=== PATIENT | male | born 1950 | race Caucasian/White ===

== ENCOUNTER 2020-01-15 06:22 | Outpatient (REF) | payer BC, SELFPAY ==
[2020-01-15 08:19] LABS: Creatinine Urine 215.75 mg/dL; Microalbum/Creatinine Ratio Ur 3.2 ug/mg cr
[2020-01-15 08:21] LABS: Alanine Aminotransferase 34 U/L (0-40); Albumin Level 4.3 g/dL (3.5-5.0); Alkaline Phosphatase 77 U/L (39-117); Anion Gap 11 (12-20); Aspartate Amino Transferase 24 U/L (5-37); Bilirubin Total 0.2 mg/dL (0.0-1.0); Blood Urea Nitrogen 17 mg/dL (9-16); Calcium 8.8 mg/dL (8.4-10.2); Carbon Dioxide 26 mmol/L (22-29); Chloride 106 mmol/L (96-108); Cholesterol 197 mg/dL; Estimated Glomerular Filt Rate > 60; Glucose Fasting 136 mg/dL (60-99); HDL Cholesterol 46 mg/dL; LDL Cholesterol Calculated 101 mg/dl; Potassium 4.2 mmol/l (3.3-5.1); Sodium 139 mmol/L (135-145); Total Protein 6.9 g/dL (6.5-8.0); Triglycerides 250 mg/dL
== END 2020-01-15 06:23 | disposition home or self-care (01) ==
LOC: HO.LAB 06:22
PROVIDERS: PCP Physician Assistant; Visit Provider Physician Assistant
DX: E11.9 Type 2 diabetes mellitus without complications (principal); I10 Essential (primary) hypertension
CPT/HCPCS: 80053; 80061; 82043

== ENCOUNTER 2020-04-17 06:13 | Outpatient (REF) | payer BC, SELFPAY ==
[2020-04-17 07:46] LABS: Alanine Aminotransferase 39 U/L (0-40); Albumin Level 4.3 g/dL (3.5-5.0); Alkaline Phosphatase 72 U/L (39-117); Anion Gap 13 (12-20); Aspartate Amino Transferase 26 U/L (5-37); Bilirubin Total 0.4 mg/dL (0.0-1.0); Blood Urea Nitrogen 16 mg/dL (9-16); Calcium 8.9 mg/dL (8.4-10.2); Carbon Dioxide 27 mmol/L (22-29); Chloride 105 mmol/L (96-108); Estimated Glomerular Filt Rate > 60; Glucose Fasting 127 mg/dL (60-99); Potassium 4.2 mmol/L (3.3-5.1); Sodium 141 mmol/L (135-145); Total Protein 6.9 g/dL (6.5-8.0)
== END 2020-04-17 06:14 | disposition home or self-care (01) ==
LOC: HO.LAB 06:13
PROVIDERS: Visit Provider Physician Assistant
DX: E11.9 Type 2 diabetes mellitus without complications (principal)
CPT/HCPCS: 36415; 80053

== ENCOUNTER 2020-07-18 06:21 | Outpatient (REF) | payer BC, SELFPAY ==
[2020-07-18 07:11] LABS: Hematocrit 47.3 % (42-52); Hemoglobin 15.6 g/dl (14.0-18.0); Mean Corpuscular Hemoglobin 30.4 pg (27.0-33.0); Mean Corpuscular Volume 92.2 fL (80-98); Mean Platelet Volume 10.3 fL (9.4-12.4); Platelet Count 233 X10*3/uL (160-400); Red Blood Count 5.13 X10*6/uL (4.60-5.80); Red Cell Distribution Width 12.4 % (11.0-16.0); White Blood Count 7.1 X10*3/uL (4.8-10.8)
[2020-07-18 07:46] LABS: Microalbum/Creatinine Ratio Ur 5.4 ug/mg cr
[2020-07-18 07:48] LABS: Alanine Aminotransferase 29 U/L (0-40); Albumin Level 4.3 g/dL (3.5-5.0); Alkaline Phosphatase 70 U/L (39-117); Anion Gap 11 (12-20); Aspartate Amino Transferase 22 U/L (5-37); Bilirubin Total 0.4 mg/dL (0.0-1.0); Blood Urea Nitrogen 13 mg/dL (9-16); Calcium 9.6 mg/dL (8.4-10.2); Carbon Dioxide 31 mmol/L (22-29); Chloride 102 mmol/L (96-108); Cholesterol 204 mg/dL; Estimated Glomerular Filt Rate > 60; Glucose Fasting 140 mg/dL (60-99); HDL Cholesterol 42 mg/dL; LDL Cholesterol Calculated 104 mg/dl; Potassium 4.5 mmol/L (3.3-5.1); Sodium 139 mmol/L (135-145); Triglycerides 291 mg/dL
[2020-07-18 08:07] LABS: Estimated Average Glucose 143 mg/dL; Hemoglobin A1c % 6.6 %
[2020-07-18 08:10] LABS: TSH reflex Free T4 1.06 uIU/mL (0.32-4.0)
== END 2020-07-18 06:22 | disposition home or self-care (01) ==
LOC: HO.LAB 06:21
PROVIDERS: PCP Physician Assistant; Visit Provider Physician Assistant
DX: I10 Essential (primary) hypertension (principal); E11.9 Type 2 diabetes mellitus without complications
CPT/HCPCS: 36415; 80053; 80061; 82043; 83036; 84443; 85027

== ENCOUNTER 2021-01-01 09:05 | Outpatient (REF) | payer MEDICARE, SELFPAY ==
[2021-01-01 10:18] LABS: Alanine Aminotransferase 39 U/L (0-40); Albumin Level 4.2 g/dL (3.5-5.0); Alkaline Phosphatase 65 U/L (39-117); Aspartate Amino Transferase 26 U/L (5-37); Bilirubin Direct 0.2 mg/dL (0.0-0.5); Bilirubin Total 0.5 mg/dL (0.0-1.0); Total Protein 6.7 g/dL (6.5-8.0)
== END 2021-01-01 09:06 | disposition home or self-care (01) ==
LOC: HO.LAB 09:05
PROVIDERS: PCP Physician Assistant; Visit Provider Dermatology
DX: B35.1 Tinea unguium (principal)
CPT/HCPCS: 36415; 80076

== ENCOUNTER 2021-01-17 09:19 | Outpatient (REF) | payer MEDICARE, SELFPAY ==
[2021-01-17 10:15] LABS: Hematocrit 45.1 % (42.0-52.0); Hemoglobin 15.1 g/dl (14.0-18.0); Mean Corpuscular HGB Conc 33.5 g/dl (31.0-36.0); Mean Corpuscular Hemoglobin 30.4 pg (27.0-33.0); Mean Corpuscular Volume 90.7 fL (80.0-98.0); Mean Platelet Volume 10.7 fL (9.4-12.4); Platelet Count 205 X10*3/uL (160-400); Red Blood Count 4.97 X10*6/uL (4.60-5.80); Red Cell Distribution Width 12.5 % (11.0-16.0); White Blood Count 7.2 X10*3/uL (4.8-10.8)
[2021-01-17 10:25] LABS: Estimated Average Glucose 157 mg/dL; Hemoglobin A1c % 7.1 %
[2021-01-17 10:37] LABS: Alanine Aminotransferase 40 U/L (0-40); Albumin Level 4.2 g/dL (3.5-5.0); Alkaline Phosphatase 69 U/L (39-117); Anion Gap 11 (12-20); Aspartate Amino Transferase 24 U/L (5-37); Bilirubin Total 0.4 mg/dL (0.0-1.0); Blood Urea Nitrogen 11 mg/dL (9-16); Calcium 9.1 mg/dL (8.4-10.2); Carbon Dioxide 28 mmol/L (22-29); Chloride 105 mmol/L (96-108); Cholesterol 221 mg/dL; Estimated Glomerular Filt Rate > 60; Glucose Fasting 148 mg/dL (60-99); HDL Cholesterol 43 mg/dL; LDL Cholesterol Calculated 117 mg/dl; Sodium 140 mmol/L (135-145); Total Protein 6.9 g/dL (6.5-8.0); Triglycerides 309 mg/dL
== END 2021-01-17 09:20 | disposition home or self-care (01) ==
LOC: HO.LAB 09:19
PROVIDERS: PCP Physician Assistant; Visit Provider Physician Assistant
DX: I10 Essential (primary) hypertension (principal); E11.9 Type 2 diabetes mellitus without complications
CPT/HCPCS: 36415; 80053; 80061; 83036; 85027

== ENCOUNTER 2021-07-21 07:52 | Outpatient (REF) | payer MEDICARE, SELFPAY ==
[2021-07-21 08:43] LABS: Hematocrit 43.9 % (42.0-52.0); Hemoglobin 14.6 g/dl (14.0-18.0); Mean Corpuscular HGB Conc 33.3 g/dl (31.0-36.0); Mean Corpuscular Hemoglobin 30.1 pg (27.0-33.0); Mean Corpuscular Volume 90.5 fL (80.0-98.0); Mean Platelet Volume 10.4 fL (9.4-12.4); Platelet Count 195 X10*3/uL (160-400); Red Blood Count 4.85 X10*6/uL (4.60-5.80); Red Cell Distribution Width 12.2 % (11.0-16.0); White Blood Count 7.3 X10*3/uL (4.8-10.8)
[2021-07-21 09:07] LABS: Alanine Aminotransferase 45 U/L (0-40); Albumin Level 4.3 g/dL (3.5-5.0); Alkaline Phosphatase 66 U/L (39-117); Anion Gap 12 (12-20); Aspartate Amino Transferase 28 U/L (5-37); Bilirubin Total 0.5 mg/dL (0.0-1.0); Blood Urea Nitrogen 17 mg/dL (9-16); Calcium 9.7 mg/dL (8.4-10.2); Carbon Dioxide 27 mmol/L (22-29); Chloride 106 mmol/L (96-108); Cholesterol 218 mg/dL; Estimated Glomerular Filt Rate > 60; Glucose Fasting 160 mg/dL (60-99); HDL Cholesterol 43 mg/dL; LDL Cholesterol Calculated 113 mg/dl; Potassium 4.6 mmol/L (3.3-5.1); Sodium 140 mmol/L (135-145); Total Protein 6.9 g/dL (6.5-8.0); Triglycerides 310 mg/dL
[2021-07-21 09:40] LABS: Creatinine Urine 218.99 mg/dL; Microalbum/Creatinine Ratio Ur 4.5 ug/mg cr
== END 2021-07-21 07:53 | disposition home or self-care (01) ==
LOC: HO.LAB 07:52
PROVIDERS: PCP Physician Assistant; Visit Provider Physician Assistant
DX: I10 Essential (primary) hypertension (principal); E78.9 Disorder of lipoprotein metabolism, unspecified
CPT/HCPCS: 36415; 80053; 80061; 82043; 85027

== ENCOUNTER 2022-07-28 14:30 | Outpatient (REF) | payer MEDICARE, SELFPAY ==
--- NOTE | ~2022-07-28 | XR_ITS ---
EXAMINATION: XR LUMBOSACRAL SPINE CLINICAL INFORMATION: Anesthesia of skin COMPARISON: None available. TECHNIQUE: Three views of the lumbosacral spine. FINDINGS: No fracture or dislocation. Curvature of the lower lumbar spine to the left. Bone alignment is otherwise normal. Multilevel degenerative disc disease, spondylosis and facet arthritis at all levels. Mild atherosclerotic disease. 1 cm right upper quadrant calcification, uncertain etiology. This could represent a right renal stone. XR/XR lumbar spine 2-3V IMPRESSION: Scoliosis and multilevel degenerative changes. 1 cm right upper quadrant calcification, uncertain etiology
== END 2022-07-28 14:31 | disposition home or self-care (01) ==
LOC: HO.XRAY 14:30
PROVIDERS: PCP Physician Assistant; Visit Provider Physician Assistant
DX: R20.0 Anesthesia of skin (principal)
CPT/HCPCS: 72100

== ENCOUNTER 2022-07-29 09:01 | Outpatient (REF) | payer MEDICARE, SELFPAY ==
[2022-07-29 09:47] LABS: Hematocrit 39.2 % (42.0-52.0); Mean Corpuscular HGB Conc 33.2 g/dl (31.0-36.0); Mean Corpuscular Hemoglobin 30.4 pg (27.0-33.0); Mean Corpuscular Volume 91.6 fL (80.0-98.0); Mean Platelet Volume 10.4 fL (9.4-12.4); Platelet Count 241 X10*3/uL (160-400); Red Blood Count 4.28 X10*6/uL (4.60-5.80); Red Cell Distribution Width 12.4 % (11.0-16.0); White Blood Count 7.3 X10*3/uL (4.8-10.8)
[2022-07-29 10:24] LABS: Alanine Aminotransferase 30 U/L (0-40); Alkaline Phosphatase 77 U/L (39-117); Anion Gap 14 (12-20); Aspartate Amino Transferase 22 U/L (5-37); Bilirubin Total 0.4 mg/dL (0.0-1.0); Blood Urea Nitrogen 19 mg/dL (9-16); Calcium 9.5 mg/dL (8.4-10.2); Carbon Dioxide 28 mmol/L (22-29); Chloride 103 mmol/L (96-108); Cholesterol 206 mg/dL; Estimated Glomerular Filt Rate > 60; Glucose Fasting 268 mg/dL (60-99); HDL Cholesterol 43 mg/dL; LDL Cholesterol Calculated 110 mg/dl; Potassium 4.9 mmol/L (3.3-5.1); Sodium 140 mmol/L (135-145); Total Protein 6.8 g/dL (6.5-8.0); Triglycerides 267 mg/dL
[2022-07-29 11:40] LABS: Microalbum/Creatinine Ratio Ur 4.5 ug/mg cr
== END 2022-07-29 09:02 | disposition home or self-care (01) ==
LOC: HO.LAB 09:01
PROVIDERS: PCP Physician Assistant; Visit Provider Physician Assistant
DX: I10 Essential (primary) hypertension (principal); E11.9 Type 2 diabetes mellitus without complications; Z78.9 Other specified health status
CPT/HCPCS: 36415; 80053; 80061; 82043; 85027; 86787

== ENCOUNTER 2022-08-26 11:19 | Outpatient (REF) | payer MEDICARE, SELFPAY ==
--- NOTE | ~2022-08-26 | US_ITS ---
EXAMINATION: US RETROPERITONEAL LIMITED (RENAL ONLY) CLINICAL INFORMATION: Right upper quadrant calculus on lumbar spine x-ray of 07/28/2022 COMPARISON: X-ray lumbosacral spine 07/28/2022. TECHNIQUE: Real-time imaging of the kidneys. FINDINGS: RIGHT KIDNEY: 13.0 x 6.4 x 7.5 cm (SAG x AP x TRV). The kidney is normal in size, contour, and echogenicity. Renal cortical thickness is normal. No calculi or focal parenchymal lesions. No hydronephrosis. LEFT KIDNEY: 12.9 x 6.7 x 5.7 cm (SAG x AP x TRV). The kidney is normal in size, contour, and echogenicity. Renal cortical thickness is normal. No calculi or focal parenchymal lesions. No hydronephrosis. US/US renal BI IMPRESSION: No renal calculi or obstructive uropathy. The calcification visualized on recent lumbar x-ray may reflect a gallstone.
== END 2022-08-26 11:20 | disposition home or self-care (01) ==
LOC: HO.HMGCX 11:19
PROVIDERS: PCP Physician Assistant; Visit Provider Physician Assistant
DX: N20.0 Calculus of kidney (principal)
CPT/HCPCS: 76775

== ENCOUNTER 2022-10-26 07:55 | Outpatient (REF) | payer MEDICARE, SELFPAY ==
[2022-10-26 08:19] LABS: Estimated Average Glucose 157 mg/dL; Hemoglobin A1c % 7.1 %
[2022-10-26 08:48] LABS: Alanine Aminotransferase 29 U/L (0-40); Albumin Level 4.2 g/dL (3.5-5.0); Alkaline Phosphatase 61 U/L (39-117); Anion Gap 11 (12-20); Aspartate Amino Transferase 22 U/L (5-37); Bilirubin Total 0.4 mg/dL (0.0-1.0); Blood Urea Nitrogen 22 mg/dL (9-16); Calcium 9.7 mg/dL (8.4-10.2); Carbon Dioxide 26 mmol/L (22-29); Chloride 108 mmol/L (96-108); Cholesterol 191 mg/dL; Estimated Glomerular Filt Rate 56; Glucose Fasting 150 mg/dL (60-99); HDL Cholesterol 47 mg/dL; LDL Cholesterol Calculated 109 mg/dl; Sodium 141 mmol/L (135-145); Total Protein 7.2 g/dL (6.5-8.0); Triglycerides 177 mg/dL
== END 2022-10-26 07:56 | disposition home or self-care (01) ==
LOC: HO.LAB 07:55
PROVIDERS: PCP Physician Assistant; Visit Provider Physician Assistant
DX: E78.9 Disorder of lipoprotein metabolism, unspecified (principal); E11.9 Type 2 diabetes mellitus without complications; I10 Essential (primary) hypertension
CPT/HCPCS: 36415; 80053; 80061; 83036

== ENCOUNTER 2022-10-27 11:21 | Outpatient (AMB) | payer MEDICARE, SELFPAY ==
--- NOTE | 2022-10-27 11:33 | MHC.PC.OV ---
Vital Signs 10/27/22 11:36 Height 5 ft 10 in Weight 251 lb 2 oz BMI 36.0 BP 146/78 H Blood Pressure Location Lt brachial Position Sitting Pulse 65 Pulse Source Pulse Oximeter Pulse Oximetry (%) 97 Oxygen Delivery Method Room Air Intake Visit Reasons: f/u DMII Intake Note: Patient is here to follow up on DMII and HTN. Laundromat Manager Required: No Accompanied by: Self / Same As Patient Allergies metformin Adverse Reaction (Mild, Verified 10/27/22 11:47) Diarrhea Medication List - Last Reconciled 10/27/22 by Bobo Cruz PA-C betamethasone dipropionate 0.05% appl topical blood sugar diagnostic (FreeStyle Lite Strips) As directed blood-glucose meter (FreeStyle Lite Meter kit) As directed wrlnootqvw-lwkeepcivvdhf-zrro 50-325-40 mg 1 cap PO Q8H PRN glipizide ER 5 mg PO DAILY 90 days hydrocortisone 2.5% 1 appl topical BID PRN ketoconazole 2% appl topical BID lancets (FreeStyle Lancets) As directed lisinopril 30 mg PO DAILY 90 days miscellaneous medical supply 1 ea miscellaneous .nightly pioglitazone (Actos) 30 mg PO DAILY 90 days Tobacco use date assessed: 07/28/22 Fall risk assessment: No Falls in past year Last assessed Fall Risk: 10/27/22 Dental Screening Dental Screen Date: 10/27/22 Did you have a dental visit in the last 12 months?: Yes Did you have a dental problem in the last 6 months where you did not have access to dental care?: No Was dental information given to patient?: Patient has dentist HPI f/u DMII HPI Details Eda is a 72-year-old male here today for follow-up visit l. ? Pmhx significant for Prostate cancer, DMII, HTN. Concern--> ? ... ? History of prostate cancer: Underwent a prostectomy and has made a full recovery . Has followup with Urology. PSA has been undetectable. ? .. ? ? JV:? Has received his new CPAP machine and has been complying with this use nightly with good effect. .. Obesity:? Weight has been stable since last office visit. He reports he has been doing more yard work as his activity. ? .. ? DMII:? Most recent A1c much improved at 7.1 from 10.1..?.? He continues on 30 mg of Actos, was unable to tolerate metformin. He does report having a lot more soda as of late. Continues on glipizide 5 mg as well. .. Hyperlipidemia: Most recent fasting lipid panel showing much improved total cholesterol .. Hypertension:? Blood pressure today in office slightly elevated. Home blood pressure logs showing systolic numbers 120s to 150s. He would like to continue on lisinopril 30 mg for now. Will consider increasing to 40 mg for better blood pressure control. Otherwise will continue working lifestyle modifications on reducing his weight and salt in his diet..? Patient denies any headaches, chest discomfort, shortness of breath. Unfortunately had experienced dizziness and presyncopal episodes with the us of hydrochlorothiazide. COUNT INCLUDES THE [facility] Medical History (Updated 10/27/22 @ 12:11 by Bobo Cruz PA-C) Migraines Surgical History H/O prostate biopsy History of prostatectomy Family History Father Colon cancer Mother Stroke Social History Housing: House Alcohol intake: former Year quit: 2019 Patient Tobacco Use Status: Former Tobacco user (22 years ago) Quit Date: quit 22 years ago e-Cigarette/Vaping Use: Never Used Substance Use Type: Marijuana service: No Current occupational status: retired Cognitive needs: No Hearing needs: No Vision needs: Yes Questionnaire Thrive Questionnaire Date Thrive assessed: 07/28/22 KRISH-7 AMB Questionnaire KRISH-7 Date KRISH - 7 assessed: 07/28/22 Source: Developed by Drs. Dusty Ansari, Mirella Meier, Vinay Soto and colleagues, with an educational ron from [employer]. Review of Systems Const Denies headache(s) Eyes Denies loss of vision ENT Denies vertigo, Denies dizziness, Denies headache(s) and Denies sore throat Card Denies chest pain, Denies leg edema and Denies lightheadedness Resp Denies cough, Denies hemoptysis and Denies wheezing GI Denies abdominal pain, Denies melena, Denies constipation, Denies diarrhea and Denies vomiting Denies dysuria, Denies urinary frequency and Denies urinary urgency Musc Denies arthralgias, Denies joint swelling, Denies numbness and Denies tingling Neuro Denies Abnormal speech present, Denies behavioral changes, Denies vertigo, Denies dizziness, Denies headache(s), Denies loss of vision, Denies memory loss, Denies numbness and Denies tingling Psych Denies anxiety, Denies behavioral changes, Denies depression, Denies memory loss and Denies panic attacks Surinder/Lymph Denies easy bleeding and Denies easy bruising Aller/Immun Denies wheezing Physical exam (Primary Care) Vital Signs: Last Vital Signs Pulse 65 10/27/22 11:36 BP 146/78 H 10/27/22 11:36 Pulse Ox 97 10/27/22 11:36 Oxygen Delivery Method Room Air 10/27/22 11:36 BMI result Body Mass Index 36.0 BMI Assessment/Plan discussion: High Tobacco/Smoking Status: Tobacco use Status Tobacco use date assessed 07/28/22 10/27/22 11:33 Patient Tobacco Use Status Former Tobacco user (10/27/22 11:33 years ago) e-Cigarette/Vaping Use Never Used 10/27/22 11:33 Thrive Assessment: Date of Thrive Assessment Date Thrive assessed 07/28/22 10/27/22 11:33 Const Other: Obese General: healthy appearing, no acute distress, alert and awake Nutritional Appearance: well nourished Orientation/consciousness: oriented to person, oriented to place and oriented to time HENMT Ears: TM's normal bilaterally General nose exam: Normal nasal mucous membranes and turbinates present Eyes Conjunctivae: conjunctivae normal Sclerae: sclerae normal Pupils: Equal, round and reactive pupils present Neck Neck: Yes no lymphadenopathy and Yes no JVD Thyroid: Thyroid normal Carotids: no bruits Resp Effort & Inspection: normal respiratory effort and not tachypneic Auscultation: no crackles, no rales, no rhonchi and no wheezes Cardio Rate: regular rate Rhythm: regular rhythm Heart sounds: no murmurs and normal S1 and S2 GI Palpation (GI): Soft to palpation, nontender, no hepatomegaly and no splenomegaly Auscultation: normal bowel sounds Skin General skin exam: no rashes or lesions noted and dry skin Neuro General: oriented to person, oriented to place and oriented to time Cranial nerves: Yes Equal, round and reactive pupils present Speech: No Abnormal speech present Gait exam (Neuro): Normal gait present Motor exam (neuro): no tremor noted Extrem Right upper extremity: full ROM Left upper extremity: full ROM Right lower extremity: full ROM; no edema Left lower extremity: full ROM; no edema Psych Mental Status: mental status grossly normal Speech and movement: Normal speech and movement present Affect: normal affect Attitude: cooperative Thought process: Normal thought process present Assessment and Plan Assessment & Plan (1) HTN (hypertension): Code(s): I10 - Essential (primary) hypertension Qualifiers: Hypertension type: essential hypertension Qualified Code(s): I10 - Essential (primary) hypertension Plan: Patient's blood pressure slightly elevated today in office. He continues on lisinopril 30 mg like to continue this dose at this time. Has tried hydrochlorothiazide though felt dizzy and had breaks syncopal episode. He will continue working on lifestyle modifications to reduce his weight. Advised again to reduce salt in his diet. Goal blood pressures is to be more consistently below 140/90 (2) DMII (diabetes mellitus, type 2): Code(s): E11.9 - Type 2 diabetes mellitus without complications Qualifiers: Diabetes mellitus complication status: without complication Diabetes mellitus intermediate insulin use: without intermediate use Qualified Code(s): E11.9 - Type 2 diabetes mellitus without complications Plan: Patient's type 2 diabetes much improved since last visit. Continues on Actos and glipizide. Will continue working on lifestyle modifications and following a diabetic diet. Goal A1c is to be below 7.0. (3) Borderline high cholesterol: Code(s): E78.9 - Disorder of lipoprotein metabolism, unspecified Plan: Patient has borderline high cholesterol has improved since last lab draw. LDL slightly above 100 and will continue working on lifestyle modifications to reduce his cholesterol. (4) Lumbar radiculopathy: Code(s): M54.16 - Radiculopathy, lumbar region Plan: Patient reports he has been having worsening lower back pain and thigh numbness and tingling. Has had x-ray of his lower lumbar spine the did show scoliosis and arthritis. Will try to order MRI as patient's symptoms are consistent with nerve entrapment. Advised on physical therapy and patient is somewhat willing to do so. (5) JV (obstructive sleep apnea): Code(s): G47.33 - Obstructive sleep apnea (adult) (pediatric) Plan: Patient continues on nightly use of CPAP machine . (6) Obese: Code(s): E66.9 - Obesity, unspecified Qualifiers: Obesity type: due to excess calories Obesity classification: adult class 1 (BMI 30 - 34.9) Serious obesity comorbidity presence: with serious comorbidity Body mass index: BMI 34.0-34.9 Qualified Code(s): E66.09 - Other obesity due to excess calories; Z68.34 - Body mass index [BMI] 34.0-34.9, adult Plan: Patient interested in starting medication to help lose weight. Will try 3 mg rybelsus. He will continue lifestyle modifications being more physically active and adapting to better eating habits to reduce his weight as well. Orders: Orders Comprehensive [place]. Panel Fast Today E11.9 - Type 2 diabetes mellitus without complications Lipid Panel Today E78.9 - Disorder of lipoprotein metabolism, unspecified MR lumbar spine wo con Today M54.16 - Radiculopathy, lumbar region Medications: New semaglutide 3 mg PO DAILY 30 days 30 tabs 0RF E11.9 - Type 2 diabetes mellitus without complications, E66.09 - Other obesity due to excess calories, E66.9 - Obesity, unspecified, Z68.34 - Body mass index [BMI] 34.0-34.9, adult Coding Level of Care Code Est Pt Level 4 (17272) Diagnoses HTN (hypertension) I10 Hypertension type: essential hypertension DMII (diabetes mellitus, type 2) E11.9 Diabetes mellitus complication status: without complication Diabetes mellitus terminal gauger insulin use: without terminal gauger use Borderline high cholesterol E78.9 Lumbar radiculopathy M54.16 JV (obstructive sleep apnea) G47.33 Obese E66.09; Z68.34 Obesity type: due to excess calories Obesity classification: adult class 1 (BMI 30 - 34.9) Serious obesity comorbidity presence: with serious comorbidity Body mass index: BMI 34.0-34.9
[2022-10-27 11:36] VITALS: BP 146/78; PULSE 65; O2SAT 97; BMI 36.0
== END 2022-10-27 12:36 | disposition home or self-care (01) ==
PROVIDERS: PCP Physician Assistant; Visit Provider Physician Assistant
DX: I10 Essential (primary) hypertension (principal); E11.9 Type 2 diabetes mellitus without complications; E66.09 Other obesity due to excess calories; Z68.34 Body mass index [BMI] 34.0-34.9, adult; E78.9 Disorder of lipoprotein metabolism, unspecified; M54.16 Radiculopathy, lumbar region; G47.33 Obstructive sleep apnea (adult) (pediatric)
CPT/HCPCS: 99214

== ENCOUNTER 2022-12-11 10:24 | Outpatient (REF) | payer MEDICARE, SELFPAY | END 2022-12-11 10:25 | disposition home or self-care (01) | LOC: HO.MRI 10:24 | PROVIDERS: PCP Physician Assistant; Visit Provider Physician Assistant | DX: Z13.89 Encounter for screening for other disorder (principal) ==

== ENCOUNTER 2023-01-26 08:05 | Outpatient (REF) | payer MEDICARE, SELFPAY ==
[2023-01-26 09:14] LABS: Alanine Aminotransferase 23 U/L (0-40); Albumin Level 4.3 g/dL (3.5-5.0); Alkaline Phosphatase 72 U/L (39-117); Anion Gap 11 (12-20); Aspartate Amino Transferase 21 U/L (5-37); Bilirubin Total 0.5 mg/dL (0.0-1.0); Blood Urea Nitrogen 17 mg/dL (9-16); Calcium 10.1 mg/dL (8.4-10.2); Carbon Dioxide 28 mmol/L (22-29); Chloride 105 mmol/L (96-108); Cholesterol 217 mg/dL (<200); Estimated Glomerular Filt Rate > 60; Glucose Fasting 178 mg/dL (60-99); HDL Cholesterol 47 mg/dL (>40); LDL Cholesterol Calculated 121 mg/dL (<100); Potassium 4.3 mmol/L (3.3-5.1); Sodium 140 mmol/L (135-145); Total Protein 7.7 g/dL (6.5-8.0); Triglycerides 245 mg/dL (<150)
== END 2023-01-26 08:06 | disposition home or self-care (01) ==
LOC: HO.LAB 08:05
PROVIDERS: PCP Physician Assistant; Visit Provider Physician Assistant
DX: E11.9 Type 2 diabetes mellitus without complications (principal); E78.9 Disorder of lipoprotein metabolism, unspecified
CPT/HCPCS: 36415; 80053; 80061

== ENCOUNTER 2023-02-03 10:48 | Outpatient (AMB) | payer MEDICARE, SELFPAY ==
[2023-02-03 10:54] VITALS: BP 148/68; PULSE 82; O2SAT 95; BMI 36.4
--- NOTE | 2023-02-03 10:54 | MHC.PC.OV ---
Vital Signs 02/03/23 10:54 02/03/23 11:30 Height 5 ft 10 in Weight 253 lb 6 oz BMI 36.4 BP 148/68 H 140/70 H Blood Pressure Location Lt brachial Position Sitting Pulse 82 Pulse Source Pulse Oximeter Pulse Oximetry (%) 95 Oxygen Delivery Method Room Air Intake Visit Reasons: f/u DMII/ HTN It Program Engagement Director Required: No Accompanied by: Self / Same As Patient Allergies metformin Adverse Reaction (Mild, Verified 02/03/23 11:09) Diarrhea Medication List - Last Reconciled 02/03/23 by Bobo Cruz PA-C betamethasone dipropionate 0.05% appl topical blood sugar diagnostic (FreeStyle Lite Strips) As directed blood-glucose meter (FreeStyle Lite Meter kit) As directed prkvyceqli-wigswostrwoln-ynbw 50-325-40 mg 1 cap PO Q8H PRN glipizide ER 5 mg PO DAILY 90 days hydrocortisone 2.5% 1 appl topical BID PRN ketoconazole 2% appl topical BID lancets (FreeStyle Lancets) As directed lisinopril 40 mg PO DAILY miscellaneous medical supply 1 ea miscellaneous .nightly pioglitazone (Actos) 30 mg PO DAILY 90 days semaglutide 3 mg PO DAILY 30 days Tobacco use date assessed: 07/28/22 Fall risk assessment: 1 Fall in past year Last assessed Fall Risk: 02/03/23 Dental Screening Dental Screen Date: 02/03/23 Did you have a dental visit in the last 12 months?: Yes Did you have a dental problem in the last 6 months where you did not have access to dental care?: No Was dental information given to patient?: Patient has dentist HPI f/u DMII/ HTN HPI Details Eda is a 72-year-old male here today for follow-up visit . ? Pmhx significant for Prostate cancer, DMII, HTN. Lumbar disc disease: Has bilateral thigh numbness and tingling. Does report being somewhat off balance. Recent MRI lumbar spine showing moderate disc disease. Offered physical therapy though he declines at this time. He is interested in seeing neurosurgeon about his possible surgical fix. ? ... ? History of prostate cancer: Underwent a prostectomy and has made a full recovery . Has followup with Urology. PSA has been undetectable. ? .. ? ? JV:? Has received his new CPAP machine and has been complying with this use nightly with good effect. .. Obesity: He does understand his BMI is over 30.? Weight has been stable since last office visit. He reports he has been doing more yard work as his activity. ? .. ? DMII:? Most recent A1c at 7.7. He continues on 30 mg of Actos, was unable to tolerate metformin. We have tried to prescribe Ozempic though much too expensive for patient. He is trying to be more compliant with a diabetic diet.. Continues on glipizide 5 mg as well. .. Hyperlipidemia: Most recent fasting lipid panel showing improved total cholesterol though still borderline. LDL above 100. He is now willing to start statin therapy with goal LDL to be below 100 .. Hypertension:? Blood pressure today in office slightly elevated. We have increased his lisinopril to 40 mg. He was not able to tolerate hydrochlorothiazide due to dizziness. He reports that home blood pressures are 120 systolic. REPLACED BY [facility] Medical History Migraines Surgical History H/O prostate biopsy History of prostatectomy Family History Father Colon cancer Mother Stroke Social History Housing: House Alcohol intake: former Year quit: 2019 Patient Tobacco Use Status: Former Tobacco user (22 years ago) Quit Date: quit 22 years ago e-Cigarette/Vaping Use: Never Used Substance Use Type: Marijuana service: No Current occupational status: retired Cognitive needs: No Hearing needs: No Vision needs: Yes Questionnaire Thrive Questionnaire Date Thrive assessed: 07/28/22 KRISH-7 AMB Questionnaire KRISH-7 Date KRISH - 7 assessed: 07/28/22 Source: Developed by Drs. Dusty Ansari, Mirella Meier, Vinay Soto and colleagues, with an educational ron from [employer]. Review of Systems Const Denies headache(s) Eyes Denies loss of vision ENT Denies vertigo, Denies dizziness, Denies headache(s) and Denies sore throat Card Denies chest pain, Denies leg edema and Denies lightheadedness Resp Denies cough, Denies hemoptysis and Denies wheezing GI Denies abdominal pain, Denies melena, Denies constipation, Denies diarrhea and Denies vomiting Denies dysuria, Denies urinary frequency and Denies urinary urgency Musc Denies arthralgias, Denies joint swelling, Denies numbness and Denies tingling Neuro Denies Abnormal speech present, Denies behavioral changes, Denies vertigo, Denies dizziness, Denies headache(s), Denies loss of vision, Denies memory loss, Denies numbness and Denies tingling Psych Denies anxiety, Denies behavioral changes, Denies depression, Denies memory loss and Denies panic attacks Surinder/Lymph Denies easy bleeding and Denies easy bruising Aller/Immun Denies wheezing Physical exam (Primary Care) Vital Signs: Last Vital Signs Pulse 82 02/03/23 10:54 BP 140/70 H 02/03/23 11:30 Pulse Ox 95 02/03/23 10:54 Oxygen Delivery Method Room Air 02/03/23 10:54 BMI result Body Mass Index 36.4 BMI Assessment/Plan discussion: High Tobacco/Smoking Status: Tobacco use Status Tobacco use date assessed 07/28/22 02/03/23 11:00 Patient Tobacco Use Status Former Tobacco user (22 02/03/23 11:00 years ago) e-Cigarette/Vaping Use Never Used 02/03/23 11:00 Thrive Assessment: Date of Thrive Assessment Date Thrive assessed 07/28/22 02/03/23 11:00 Const Other: OBESE General: no acute distress, alert and awake Nutritional Appearance: well nourished Orientation/consciousness: oriented to person, oriented to place and oriented to time HENMT Ears: TM's normal bilaterally General nose exam: Normal nasal mucous membranes and turbinates present Eyes Conjunctivae: conjunctivae normal Sclerae: sclerae normal Pupils: Equal, round and reactive pupils present Neck Neck: Yes no lymphadenopathy and Yes no JVD Thyroid: Thyroid normal Carotids: no bruits Resp Effort & Inspection: normal respiratory effort and not tachypneic Auscultation: no crackles, no rales, no rhonchi and no wheezes Cardio Rate: regular rate Rhythm: regular rhythm Heart sounds: no murmurs and normal S1 and S2 GI Palpation (GI): Soft to palpation, nontender, no hepatomegaly and no splenomegaly Auscultation: normal bowel sounds Skin General skin exam: no rashes or lesions noted and dry skin Neuro General: oriented to person, oriented to place and oriented to time Cranial nerves: Yes Equal, round and reactive pupils present Speech: No Abnormal speech present Gait exam (Neuro): Normal gait present Motor exam (neuro): no tremor noted Extrem Right upper extremity: full ROM Left upper extremity: full ROM Right lower extremity: full ROM; no edema Left lower extremity: full ROM; no edema Psych Mental Status: mental status grossly normal Speech and movement: Normal speech and movement present Affect: normal affect Attitude: cooperative Thought process: Normal thought process present Results AMB Hemoglobin A1c AMB Hemoglobin A1c 7.7 % Last Edit by MARIAA Gallagher on 02/03/23 11:07 Results Reviewed Results Reviewed: Laboratory Last Values Hgb A1c (Clinic) 7.7 % (4.0-6.0) H 02/03/23 10:51 Assessment and Plan Assessment & Plan (1) HTN (hypertension): Code(s): I10 - Essential (primary) hypertension Qualifiers: Hypertension type: essential hypertension Qualified Code(s): I10 - Essential (primary) hypertension Plan: Patient's blood pressure slightly elevated today in office. We have increased his lisinopril to 40 mg. He reports that home blood pressures are 120 systolic. Has tried hydrochlorothiazide though felt dizzy and had breaks syncopal episode. He will continue working on lifestyle modifications to reduce his weight. Advised again to reduce salt in his diet. Goal blood pressures is to be more consistently below 140/90 (2) DMII (diabetes mellitus, type 2): Code(s): E11.9 - Type 2 diabetes mellitus without complications Qualifiers: Diabetes mellitus complication status: without complication Diabetes mellitus psychiatry physician insulin use: without chcf use Qualified Code(s): E11.9 - Type 2 diabetes mellitus without complications Plan: Patient's type 2 diabetes suboptimally controlled with today's A1c is 7.7. Continues on Actos and glipizide. We have tried to prescribe Ozempic though was much too expensive for patient. Will extensively work on diabetic diet and trying to be more physically active. Goal A1c to be below 7.0 (3) Borderline high cholesterol: Code(s): E78.9 - Disorder of lipoprotein metabolism, unspecified Plan: Patient's LDL above goal. Will start statin therapy. Goal LDL to be below 100 (4) Lumbar radiculopathy: Code(s): M54.16 - Radiculopathy, lumbar region Plan: Patient reports he has been having worsening lower back pain and thigh numbness and tingling. MRI of lumbar spine showing multilevel lumbar disc herniations. He is not interested in physical therapy though his knee to speak with surgeon to about possible surgical fix. (5) JV (obstructive sleep apnea): Code(s): G47.33 - Obstructive sleep apnea (adult) (pediatric) Plan: Patient continues on nightly use of CPAP machine . (6) Obese: Code(s): E66.9 - Obesity, unspecified Qualifiers: Body mass index: BMI 34.0-34.9 Obesity classification: adult class 1 (BMI 30 - 34.9) Obesity type: due to excess calories Serious obesity comorbidity presence: with serious comorbidity Qualified Code(s): E66.09 - Other obesity due to excess calories; Z68.34 - Body mass index [BMI] 34.0-34.9, adult Plan: He will continue lifestyle modifications being more physically active and adapting to better eating habits to reduce his weight as well. Orders: Orders AMB Hemoglobin A1c Today E11.9 - Type 2 diabetes mellitus without complications Comprehensive [place]. Panel Fast Today I10 - Essential (primary) hypertension Hemoglobin A1c Today E11.9 - Type 2 diabetes mellitus without complications Lipid Panel Today E78.9 - Disorder of lipoprotein metabolism, unspecified Microalbumin, Random (w Creat) Today I10 - Essential (primary) hypertension Complete Blood Count no Diff Today E11.9 - Type 2 diabetes mellitus without complications Referrals Neurosurgery Referral M54.16 - Radiculopathy, lumbar region Medications: New atorvastatin 10 mg PO DAILY 90 days 90 tabs 1RF E78.9 - Disorder of lipoprotein metabolism, unspecified atorvastatin 10 mg PO DAILY 90 days 90 tabs 1RF E78.9 - Disorder of lipoprotein metabolism, unspecified Discontinued semaglutide Discontinued Reason: Doctor's Order 3 mg PO DAILY 30 days 30 tabs 0RF E11.9 - Type 2 diabetes mellitus without complications, E66.09 - Other obesity due to excess calories, E66.9 - Obesity, unspecified, Z68.34 - Body mass index [BMI] 34.0-34.9, adult Coding Level of Care Code Est Pt Level 4 (32583) Diagnoses Essential hypertension I10 Hypertension type: essential hypertension Type 2 diabetes mellitus without complication, without long-term current use of insulin E11.9 Diabetes mellitus complication status: without complication Diabetes mellitus psychiatry physician insulin use: without psychiatry physician use Borderline high cholesterol E78.9 Lumbar radiculopathy M54.16 JV (obstructive sleep apnea) G47.33 Class 1 obesity due to excess calories with serious comorbidity and body mass index (BMI) of 34.0 to 34.9 in adult E66.09; Z68.34 Body mass index: BMI 34.0-34.9 Obesity classification: adult class 1 (BMI 30 - 34.9) Obesity type: due to excess calories Serious obesity comorbidity presence: with serious comorbidity
[2023-02-03 11:30] VITALS: BP 140/70
== END 2023-02-03 11:46 | disposition home or self-care (01) ==
PROVIDERS: PCP Physician Assistant; Visit Provider Physician Assistant
DX: I10 Essential (primary) hypertension (principal); E11.9 Type 2 diabetes mellitus without complications; E78.9 Disorder of lipoprotein metabolism, unspecified; M54.16 Radiculopathy, lumbar region; G47.33 Obstructive sleep apnea (adult) (pediatric); E66.09 Other obesity due to excess calories; Z68.34 Body mass index [BMI] 34.0-34.9, adult
CPT/HCPCS: 83036; 99214

== ENCOUNTER 2023-03-11 12:50 | Outpatient (AMB) | payer MEDICARE, SELFPAY ==
--- NOTE | 2023-03-11 13:03 | HO.SPINEOV ---
Intake Intake Visit Reasons: low back pain Intake Note: Mr. Faulkner is here today c/o low back pain. MRI done @ [place]. Gem Cutter Required: No Allergies metformin Adverse Reaction (Mild, Verified 02/03/23 11:09) Diarrhea Assessment & Plan Assessment & Plan (1) Thigh numbness: Code(s): R20.0 - Anesthesia of skin Plan Dear Bobo, Thank you for referring Mr Faulkner to our office today. This is a 72-year-old diabetic gentleman who has had I year more of progressive numbness in the front of his thighs when he is walking. It goes away when he sits down. It is an uncomfortable situation but it is not painful or cramping. It generally starts in the later part of the morning into the afternoon and when he starts to get out of the house and move around he can walk for about 5-10 minutes before he has to sit down. He does have a component of back pain but it is really not all that bothersome and nothing that would have brought him to the office today. Out of the persistence of the numbness and it is starting to interfere with his walking he had it worked up and an MRI showed some mild degenerative changes. He came here today as referral for evaluation of the numbness of the thighs. He denies any numbness of the upper extremities or his chest. No problem with urination. PMH: History of prostate cancer with total prostatectomy, hypertension, type 2 diabetes. His last A1c was 7.7. Borderline high cholesterol Social hx: He does not smoke tobacco or use alcohol but he does smoke marijuana every night Medications: Lisinopril, glipizide, p.a. click his own, atorvastatin Allergies: Metformin gives him diarrhea Physical exam: He is awake alert oriented no acute distress, he is able to stand up out of a chair on his own get on the examining table independently. He has full strength of bilateral upper lower extremities. There is some borderline hyperreflexia of the right knee with a beat of clonus in the right ankle. Currently at rest he has no loss of sensation to light touch. Imaging review: Lumbar MRI done at [place] in 2022 demonstrates multilevel degenerative disc disease, there is no significant central canal stenosis, there are varying degrees of moderate with foraminal stenosis but nothing profound. He does have some right-sided disc collapse at L4-5 seen on x-rays done here at [facility] causing some low-grade scoliosis in the lower lumbar region. Impression: 72 year old diabetic gentleman presents to the office today with numbness of his anterior thighs that is associated with activity. There is no pain or cramping sensation associated with this. It is uncomfortable but it is clear in the patient's mind that it is not painful. It is more just an awkward sensation. His lumbar MRI shows varying degrees of arthritic changes throughout his lumbar spine but there is no evidence of significant central canal stenosis or foraminal stenosis. Typically these patients would also present with pain syndromes associated with the lower extremities which he does not have. It is possible this could be something other in the differential including a diabetic polyneuropathy. I will order an EMG to evaluate for this. We should also take a look at his thoracic spine with an MRI given his history of prostate cancer and there is some slight hyperreflexia with a beat of clonus in his right ankle. Thank you for allowing us to care for your patient. The total time spent with this visit with this patient was 45 minutes reviewing history, physical exam, lumbar imaging review, and implementation of treatment plan or further diagnostic testing Damion Saab MD,PhD [facility] Orders: Orders NE electromyogram (EMG) Today R20.0 - Anesthesia of skin MR thoracic spine wo con Today R20.0 - Anesthesia of skin Coding Level of Care Code New Pt Level 4 (87784) Diagnoses Thigh numbness R20.0
== END 2023-03-11 14:23 | disposition home or self-care (01) ==
PROVIDERS: PCP Physician Assistant; Referring Provider Physician Assistant; Visit Provider Physician Assistant
DX: R20.0 Anesthesia of skin (principal)
CPT/HCPCS: 99204

== ENCOUNTER → 2023-03-11 12:50 | Outpatient (BNVA) | payer MEDICARE, SELFPAY | PROVIDERS: PCP Physician Assistant; Referring Provider Physician Assistant; Visit Provider Physician Assistant | DX: R20.0 Anesthesia of skin (principal) | CPT/HCPCS: 99202 ==

== ENCOUNTER 2023-04-09 10:58 | Outpatient (REF) | payer MEDICARE, SELFPAY ==
--- NOTE | 2023-04-09 11:01 | EMG_ITS ---
Chief complaint: Several years of numbness tingling from hips to knees, bilateral. Denies symptoms below the knees or on the feet. No footdrop. Chronic intermittent back pain. Reason for referral: Evaluate for radiculopathy Referred by: Damion CORADO Procedure done: Bilateral lower extremity NCS/EMG Precautions and/or limitations: None The limb temperature was monitored continuously and remained between 32-36 degrees C during the performance of the NCS. Nerve Conduction Studies Anti Sensory Summary Table ?Stim Site NR Onset (ms) Norm Onset (ms) Peak (ms) Norm Peak (ms) O-P Amp (?V) Norm O-P Amp Site1 Site2 Delta-0 (ms) Dist (cm) Abhay (m/s) Norm Abhay (m/s) Left Sural Anti Sensory (Lat Mall) Calf ? 1.3 1.9 <4.0 5.0 >5.0 Calf Lat Mall 1.3 14.0 108 Right Sural Anti Sensory (Lat Mall) Calf ? 1.3 2.6 <4.0 20.2 >5.0 Calf Lat Mall 1.3 14.0 108 Motor Summary Table ?Stim Site NR Onset (ms) Norm Onset (ms) O-P Amp (mV) Norm O-P Amp iAmp (mV) Amp (1st) (%) Site1 Site2 Delta-0 (ms) Dist (cm) Abhay (m/s) Norm Abhay (m/s) Right Peroneal Motor (Ext Dig Brev) Ankle ? 3.8 <4.0 3.0 >2.5 3.9 100.0 Ankle Ext Dig Brev 3.8 34.5 91 B Fib ? 11.9 2.8 3.3 93.3 B Fib Ankle 8.1 34.5 43 >40 Poplt ? 13.1 2.6 3.0 86.7 Poplt B Fib 1.2 5.0 42 >40 Left Tibial Motor (Abd Medina Brev) Ankle ? 4.4 <5 7.8 >2.5 11.2 100.0 Ankle Abd Medina Brev 4.4 0.0 Knee ? 14.1 8.0 10.2 102.6 Knee Ankle 9.7 41.0 42 >40 Right Tibial Motor (Abd Medina Brev) Ankle ? 3.7 <5 8.4 >2.5 11.0 100.0 Ankle Abd Medina Brev 3.7 0.0 Knee ? 13.5 6.2 8.2 73.8 Knee Ankle 9.8 45.0 46 >40 EMG ?Side Muscle Nerve Root Ins Act Fibs Psw Amp Dur Poly Recrt Int Pat Comment Right AbdHallucis MedPlantar S1-2 Nml Nml Nml Nml Nml 0 Nml Complete Right AntTibialis Dp Br Peron L4-5 Nml Nml Nml Nml Nml 0 Nml Complete Right PostTibialis Tibial L5, S1 Nml Nml Nml Nml Nml 0 Nml Complete Right MedGastroc Tibial S1-2 Nml Nml Nml Nml Nml 0 Nml Complete Right VastusMed Femoral L2-4 Nml Nml Nml Nml Nml 0 Nml Complete Right Add Angel Obturator, Sciat L2-4 Nml Nml Nml Nml Nml 0 Nml Complete Left AbdHallucis MedPlantar S1-2 Nml Nml Nml Nml Nml 0 Nml Complete Left AntTibialis Dp Br Peron L4-5 Nml Nml Nml Incr Incr 0 Nml Complete Left MedGastroc Tibial S1-2 Nml Nml Nml Nml Nml 0 Nml Complete Left VastusMed Femoral L2-4 Nml Nml Nml Nml Nml 0 Nml Complete Left BicepsFemS Sciatic L5-S1 Nml Nml Nml Nml Nml 0 Nml Complete Left Add Angel Obturator, Sciat L2-4 Nml Nml Nml Nml Nml 0 Nml Complete Left GluteusMed SupGluteal L4-S1 Nml Nml Nml Nml Nml 0 Nml Complete Paraspinal EMG ?Side Muscle Nerve Root Ins Act Fibs Psw Comment Right Lumbar Upper Rami Nml Nml Nml Right Lumbar Mid Rami Nml Nml Nml Right Lumbar Lower Rami Nml Nml Nml Left Lumbar Upper Rami Nml Nml Nml Left Lumbar Mid Rami Nml Nml Nml Left Lumbar Lower Rami Nml Nml Nml FINDINGS: All motor and sensory nerves tested showed normal latencies, amplitudes and conduction velocities. Concentric needle EMG was performed in selected muscles of the bilateral lower extremity and lumbar paraspinals. Study revealed Signs of electric abnormalities as shown in the table below. Left TA showed increased amplitude and duration. IMPRESSION: 1. This is an abnormal study. 2. There is electrodiagnostic findings suggestive of a chronic left L5-S1 radiculopathy. 3. There is no electrodiagnostic evidence for peroneal neuropathy, tibial neuropathy. lumbosacral plexopathy, or peripheral neuropathy. Thank you for your kind referral. Ivy Pelaez MD, ARJUN Board Certified, [place] Board of Physical Medicine and Rehabilitation (ABPMR) Board Certified, [place] Board of Electrodiagnostic Medicine (ABEM) CODIN [id number] x 2 MTDD
== END 2023-04-09 10:59 | disposition home or self-care (01) ==
LOC: HO.NEURO 10:58
PROVIDERS: PCP Physician Assistant; Visit Provider Physician Assistant
DX: R20.0 Anesthesia of skin (principal)
CPT/HCPCS: 95886; 95909

== ENCOUNTER → 2023-04-09 11:01 | Outpatient (BNV) | payer MEDICARE, SELFPAY | PROVIDERS: PCP Physician Assistant; Visit Provider Physical Medicine & Rehabilitation | DX: M54.16 Radiculopathy, lumbar region (principal) | CPT/HCPCS: 95886; 95909 ==

== ENCOUNTER 2023-05-03 08:48 | Outpatient (REF) | payer MEDICARE, SELFPAY ==
[2023-05-03 09:20] LABS: Hematocrit 44.7 % (42.0-52.0); Hemoglobin 15.1 g/dl (14.0-18.0); Mean Corpuscular HGB Conc 33.8 g/dl (31.0-36.0); Mean Corpuscular Hemoglobin 30.8 pg (27.0-33.0); Mean Platelet Volume 10.6 fL (9.4-12.4); Platelet Count 200 X10*3/uL (160-400); Red Blood Count 4.91 X10*6/uL (4.60-5.80); White Blood Count 7.9 X10*3/uL (4.8-10.8)
[2023-05-03 09:26] LABS: Estimated Average Glucose 166 mg/dL; Hemoglobin A1c % 7.4 % (<6.0)
[2023-05-03 10:51] LABS: Alanine Aminotransferase 27 U/L (0-40); Albumin Level 4.3 g/dL (3.5-5.0); Alkaline Phosphatase 78 U/L (39-117); Anion Gap 12 (12-20); Aspartate Amino Transferase 25 U/L (5-37); Bilirubin Total 0.6 mg/dL (0.0-1.0); Blood Urea Nitrogen 19 mg/dL (9-16); Calcium 9.8 mg/dL (8.4-10.2); Carbon Dioxide 27 mmol/L (22-29); Chloride 107 mmol/L (96-108); Cholesterol 149 mg/dL (<200); Estimated Glomerular Filt Rate 59; Glucose Fasting 164 mg/dL (60-99); HDL Cholesterol 46 mg/dL (>40); LDL Cholesterol Calculated 60 mg/dL (<100); Potassium 4.2 mmol/L (3.3-5.1); Sodium 142 mmol/L (135-145); Total Protein 7.4 g/dL (6.5-8.0); Triglycerides 217 mg/dL (<150)
[2023-05-03 11:31] LABS: Creatinine Urine 213.43 mg/dL; Microalbum/Creatinine Ratio Ur 4.6 ug/mg cr (<30)
== END 2023-05-03 08:49 | disposition home or self-care (01) ==
LOC: HO.LAB 08:48
PROVIDERS: PCP Physician Assistant; Visit Provider Physician Assistant
DX: E11.9 Type 2 diabetes mellitus without complications (principal); I10 Essential (primary) hypertension; E78.9 Disorder of lipoprotein metabolism, unspecified
CPT/HCPCS: 36415; 80053; 80061; 82043; 82570; 83036; 85027

== ENCOUNTER 2023-05-06 10:51 | Outpatient (AMB) | payer MEDICARE, SELFPAY ==
--- NOTE | 2023-05-06 10:53 | A.OFFPC_ITS ---
Vital Signs 05/06/23 11:05 Height 5 ft 10 in Weight 262 lb BMI 37.6 BP 164/60 H Blood Pressure Location Lt brachial Position Sitting Respiration 16 Pulse 80 Pulse Source Pulse Oximeter Pulse Oximetry (%) 98 Oxygen Delivery Method Room Air Intake Visit Reasons: f/u HTN/ HLD- obesity Installation & Maintenance Executive Required: No Accompanied by: Self / Same As Patient Allergies metformin Adverse Reaction (Mild, Verified 05/06/23 11:08) Diarrhea Medication List - Last Reconciled 05/06/23 by Bobo Cruz PA-C atorvastatin 10 mg PO DAILY 90 days betamethasone dipropionate 0.05% appl topical xghzegwhmy-ljbenbmsdpnly-yfod 50-325-40 mg 1 cap PO Q8H PRN glipizide ER 5 mg PO DAILY 90 days hydrocortisone 2.5% 1 appl topical BID PRN ketoconazole 2% appl topical BID lisinopril 40 mg PO DAILY miscellaneous medical supply 1 ea miscellaneous .nightly pioglitazone (Actos) 30 mg PO DAILY 90 days Tobacco use date assessed: 05/06/23 Fall risk assessment: No Falls in past year Last assessed Fall Risk: 05/06/23 Dental Screening Dental Screen Date: 05/06/23 Did you have a dental visit in the last 12 months?: Yes Did you have a dental problem in the last 6 months where you did not have access to dental care?: No Was dental information given to patient?: Patient has dentist HPI f/u HTN/ HLD- obesity HPI Details Eda is a 72-year-old male here today for follow-up visit . ? Pmhx significant for Prostate cancer, DMII, HTN. Concern--> he reports he has been experiencing some shortness of breath on minimal exertion which is new for him. He has noticed this over the last couple of weeks. He reports at rest he has not having any chest pain shortness for breath. PLAN: Will send for chest x-ray and cardiac stress test as he has risk factors for coronary artery disease Lumbar disc disease: Has bilateral thigh numbness and tingling. Does report being somewhat off balance. Recent MRI lumbar spine showing moderate disc d isease. Also did get a thoracic MRI that did show T10-T11 disc herniation. Offered physical therapy though he declines at this time. He has follow-up with neurosurgeon though is not surgical need. He is interested in seeing pain management for possible pain reduction modality. ? ... ? History of prostate cancer: Underwent a prostectomy and has made a full recovery . Has followup with Urology. PSA has been undetectable. ? .. ? ? JV:? Has received his new CPAP machine and has been complying with this use nightly with good effect. .. Obesity: Unfortunately gained weight since last office visit. He does admit to being fairly sedentary over the winter months. He attributes some of his weight gain to starting statin therapy. He does understand his BMI is over 30.? Weight has been stable since last office visit. He reports he has been doing more yard work as his activity. ? .. ? DMII:? A1c slightly improved to 7.4 from 7.7. He continues on 30 mg of Actos, was unable to tolerate metformin. We have tried to prescribe Ozempic though much too expensive for patient. He is trying to be more compliant with a diabetic diet.. Continues on glipizide 5 mg as well. .. Hyperlipidemia: Has started statin therapy and cholesterol panel showing excellent response. .. Hypertension:? Blood pressure today in office slightly elevated. We have increased his lisinopril to 40 mg. He was not able to tolerate hydrochlorothiazide due to dizziness. He reports that home blood pressures are 120 systolic. Laboratory Tests 07/21/21 07/23/21 07/28/22 08:19 16:56 13:40 RBC 4.85 Hgb Creatinine Fasting Glucose Hgb A1c (Clinic) 7.2 H 10.1 H Hemoglobin A1c % Triglycerides Cholesterol LDL Cholesterol, C alc Urine Microalbumin VZV IgG Antibody 07/29/22 10/26/22 10/26/22 09:27 08:03 08:03 RBC Hgb Creatinine 1.27 Fasting Glucose 268 H 150 H Hgb A1c (Clinic) Hemoglobin A1c % 7.1 Triglycerides Cholesterol 191 LDL Cholesterol, C alc 109 Urine Microalbumin VZV IgG Antibody 596.40 01/26/23 02/03/23 05/03/23 08:36 10:51 09:08 RBC Hgb Creatinine Fasting Glucose 178 H Hgb A1c (Clinic) 7.7 H Hemoglobin A1c % Triglycerides 245 H Cholesterol 217 H LDL Cholesterol, C alc 121 H Urine Microalbumin 10.0 VZV IgG Antibody 05/03/23 09:10 RBC Hgb 15.1 Creatinine 1.21 Fasting Glucose 164 H Hgb A1c (Clinic) Hemoglobin A1c % 7.4 H Triglycerides 217 H Cholesterol 149 LDL Cholesterol, C alc 60 Urine Microalbumin VZV IgG Antibody PFSH Medical History Migraines Surgical History H/O prostate biopsy History of prostatectomy Family History Father Colon cancer Mother Stroke Social History Housing: House Alcohol intake: former Year quit: 2019 Patient Tobacco Use Status: Former Tobacco user Quit Date: quit 22 years ago e-Cigarette/Vaping Use: Never Used Substance Use Type: Marijuana service: No Current occupational status: retired Cognitive needs: No Hearing needs: No Vision needs: Yes Questionnaire PHQ-9 Over the last 2 weeks, how often have you been bothered by any of the following problems? 1. Little interest or pleasure in doing things: not at all 2. Feeling down, depressed, or hopeless: not at all 3. Trouble falling or staying asleep, or sleeping too much: not at all 4. Feeling tired or having little energy: not at all 5. Poor appetite or overeating: not at all 6. Feeling bad about yourself - or that you are a failure or have let yourself or your family down: not at all 7. Trouble concentrating on things, such as reading the newspaper or watching television: not at all 8. Moving or speaking so slowly that other people could have noticed. Or the opposite - being so fidgety or restless that you have been moving around a lot more than usual: not at all 9. Thoughts that you would be better off or of hurting yourself in some way: not at all Total score: 0 Depression Screening Interpretation: Negative Depression Screening Done: Yes 57954 - PHQ-9 Billing: Yes Source: Developed by Drs. Dusty Ansari, Mirella Meier, Vinay Soto and colleagues, with an educational ron from [employer]. Thrive Questionnaire Date Thrive assessed: 05/06/23 I am a: Patient What is your living situation today?: I have a steady place to live Within the past 12 months, did the food you bought not last and you didn't have the money to get more?: Never true Within the past 12 months, did you worry whether your food would run out before you got money to buy more?: Never true Do you have trouble paying for medicines?: No Do you have trouble getting transportation to medical appointments?: No Do you have trouble paying your heating and electricity bill?: No Do you have trouble taking care of your child, family member or friend?: No Do you have trouble with day-to-day activities such as bathing, preparing meals, shopping, managing finances, etc.?: No Are you currently unemployed and looking for a job?: No Are you interested in more education?: No Please select the resources that you would like help with: None Currently or been in a relationship where the following occur: no concerns reported THRIVE Score: 0 AUDIT C Alcohol Use Questionnaire (AUDIT-C) 1. How often do you have a drink containing alcohol?: Never 3. How often do you have six or more drinks on one occasion?: Never Total Score: 0 KRISH-7 AMB Questionnaire KRISH-7 Date KRISH - 7 assessed: 05/06/23 Feeling nervous, anxious, or on edge: 0 = Not at all Not being able to stop or control worryin = Not at all Worrying too much about different things: 0 = Not at all Trouble relaxin = Not at all Being so restless that it is hard to sit still: 0 = Not at all Becoming easily annoyed or irritable: 0 = Not at all Feeling afraid as if something awful might happen: 0 = Not at all Total KRISH-7 score (0-4 normal; 5-9 mild; 10-14 moderate; 15-21 severe): 0 Source: Developed by Drs. Dusty Ansari, Mirella Meier, Vinay Soto and colleagues, with an educational ron from [employer]. KRISH-7 Assessment Billing KRISH-7 Assessment Tool: KRISH-7 Assessment 52486 Review of Systems Const Denies headache(s) Eyes Denies loss of vision ENT Denies vertigo, Denies dizziness, Denies headache(s) and Denies sore throat Card Denies chest pain, Denies leg edema, Denies lightheadedness, Reports dyspnea and Reports dyspnea on exertion Resp Denies cough, Denies hemoptysis, Reports dyspnea, Reports dyspnea on exertion and Denies wheezing GI Denies abdominal pain, Denies melena, Denies constipation, Denies diarrhea and Denies vomiting Denies dysuria, Denies urinary frequency and Denies urinary urgency Musc Denies arthralgias, Denies joint swelling, Denies numbness and Denies tingling Neuro Denies Abnormal speech present, Denies behavioral changes, Denies vertigo, Denies dizziness, Denies headache(s), Denies loss of vision, Denies memory loss, Denies numbness and Denies tingling Psych Denies anxiety, Denies behavioral changes, Denies depression, Denies memory loss and Denies panic attacks Surinder/Lymph Denies easy bleeding and Denies easy bruising Aller/Immun Denies wheezing Physical exam (Primary Care) Vital Signs: Last Vital Signs Pulse 80 05/06/23 11:05 Resp 16 05/06/23 11:05 BP 164/60 H 05/06/23 11:05 Pulse Ox 98 05/06/23 11:05 Oxygen Delivery Method Room Air 05/06/23 11:05 BMI result Body Mass Index 37.6 BMI Assessment/Plan discussion: High Tobacco/Smoking Status: Tobacco use Status Tobacco use date assessed 05/06/23 05/06/23 10:55 Patient Tobacco Use Status Former Tobacco user 05/06/23 10:55 e-Cigarette/Vaping Use Never Used 05/06/23 10:55 PHQ-9: PHQ-9 Score PHQ-9: Total score 0 05/06/23 11:10 Depression Screening Interpretation: Negative Thrive Assessment: Date of Thrive Assessment Date Thrive assessed 05/06/23 05/06/23 10:55 Currently or been in a relationship where the following occur: no concerns reported Const General: healthy appearing, no acute distress, alert and awake Nutritional Appearance: well nourished Orientation/consciousness: oriented to person, oriented to place and oriented to time HENMT Ears: TM's normal bilaterally General nose exam: Normal nasal mucous membranes and turbinates present Eyes Conjunctivae: conjunctivae normal Sclerae: sclerae normal Pupils: Equal, round and reactive pupils present Neck Neck: Yes no lymphadenopathy and Yes no JVD Thyroid: Thyroid normal Carotids: no bruits Resp Effort & Inspection: normal respiratory effort and not tachypneic Auscultation: no crackles, no rales, no rhonchi and no wheezes Cardio Rate: regular rate Rhythm: regular rhythm Heart sounds: no murmurs and normal S1 and S2 GI Palpation (GI): Soft to palpation, nontender, no hepatomegaly and no splenomegaly Auscultation: normal bowel sounds Skin General skin exam: no rashes or lesions noted and dry skin Neuro General: oriented to person, oriented to place and oriented to time Cranial nerves: Yes Equal, round and reactive pupils present Speech: No Abnormal speech present Gait exam (Neuro): Normal gait present Motor exam (neuro): no tremor noted Extrem Right upper extremity: full ROM Left upper extremity: full ROM Right lower extremity: full ROM; no edema Left lower extremity: full ROM; no edema Psych Mental Status: mental status grossly normal Speech and movement: Normal speech and movement present Affect: normal affect Attitude: cooperative Thought process: Normal thought process present Assessment and Plan Assessment & Plan (1) HTN (hypertension): Code(s): I10 - Essential (primary) hypertension Qualifiers: Hypertension type: essential hypertension Qualified Code(s): I10 - Essential (primary) hypertension Plan: Patient's blood pressure slightly elevated today in office. We have increased his lisinopril to 40 mg. He reports that home blood pressures are 120 systolic. Is seems that on exertion his blood pressure does elevate.. He will continue working on lifestyle modifications to reduce his weight. Advised again to reduce salt in his diet. Goal blood pressures is to be more consistently below 140/90 (2) DMII (diabetes mellitus, type 2): Code(s): E11.9 - Type 2 diabetes mellitus without complications Qualifiers: Diabetes mellitus complication status: without complication Diabetes mellitus ad terminal makeup operator insulin use: without ad terminal makeup operator use Qualified Code(s): E11.9 - Type 2 diabetes mellitus without complications Plan: Patient's type 2 diabetes suboptimally controlled . Continues on Actos and glipizide. We have tried to prescribe Ozempic though was much too expensive for patient. Will extensively work on diabetic diet and trying to be more physically active to better manage his blood sugars. Goal A1c to be below 7.0 (3) Borderline high cholesterol: Code(s): E78.9 - Disorder of lipoprotein metabolism, unspecified Plan: Has started statin therapy in his lipid panel is much improved. Goal LDL to remain below 100 (4) Lumbar radiculopathy: Code(s): M54.16 - Radiculopathy, lumbar region Plan: Patient reports he has been having worsening lower back pain and thigh numbness and tingling. MRI of lumbar spine showing multilevel lumbar disc herniations. He is not interested in physical therapy. He is interested in speaking with pain management clinic for pain reduction modality. (5) JV (obstructive sleep apnea): Code(s): G47.33 - Obstructive sleep apnea (adult) (pediatric) Plan: Patient continues on nightly use of CPAP machine . (6) Obese: Code(s): E66.9 - Obesity, unspecified Qualifiers: Body mass index: BMI 34.0-34.9 Obesity classification: adult class 1 (BMI 30 - 34.9) Obesity type: due to excess calories Serious obesity comorbidity presence: with serious comorbidity Qualified Code(s): E66.09 - Other obesity due to excess calories; Z68.34 - Body mass index [BMI] 34.0-34.9, adult Plan: Unfortunately gained weight since last office visit.. He will continue lifestyle modifications being more physically active and adapting to better eating habits to reduce his weight as well. (7) Exertional dyspnea: Code(s): R06.09 - Other forms of dyspnea Plan: Experiencing exertional dyspnea over the last few weeks. This is new for him. Has gained weight. Does have elevations in blood pressure during exertion. Will send for cardiac stress testing to rule out ischemic heart disease. Will also send for chest x-ray to evaluate for any pulmonary etiology Orders: Orders CA stress test Today R06.09 - Other forms of dyspnea Comprehensive [place]. Panel Fast 3 Months I10 - Essential (primary) hypertension Complete Blood Count no Diff 3 Months I10 - Essential (primary) hypertension Prostate Specific Antigen Scr 3 Months E11.9 - Type 2 diabetes mellitus without complications, Z12.5 - Encounter for screening for malignant neoplasm of prostate XR chest 2V Today R06.09 - Other forms of dyspnea Lipid Panel 3 Months E78.9 - Disorder of lipoprotein metabolism, unspecified Hemoglobin A1c 3 Months E11.9 - Type 2 diabetes mellitus without complications Referrals Pain Management Referral M54.16 - Radiculopathy, lumbar region Coding Level of Care Code Est Pt Level 4 (39698) Diagnoses Essential hypertension I10 Hypertension type: essential hypertension Type 2 diabetes mellitus without complication, without long-term current use of insulin E11.9 Diabetes mellitus complication status: without complication Diabetes mellitus half-way insulin use: without ad terminal makeup operator use Borderline high cholesterol E78.9 Lumbar radiculopathy M54.16 JV (obstructive sleep apnea) G47.33 Class 1 obesity due to excess calories with serious comorbidity and body mass index (BMI) of 34.0 to 34.9 in adult E66.09; Z68.34 Body mass index: BMI 34.0-34.9 Obesity classification: adult class 1 (BMI 30 - 34.9) Obesity type: due to excess calories Serious obesity comorbidity presence: with serious comorbidity Exertional dyspnea R06.09 Additional Codes KRISH-7 Assessment Billing - KRISH-7 Assessment Tool: KRISH-7 Assessment [id number] ([id number])
[2023-05-06 11:05] VITALS: BP 164/60; PULSE 80; RESP 16; O2SAT 98; BMI 37.6
== END 2023-05-06 11:38 | disposition home or self-care (01) ==
PROVIDERS: PCP Physician Assistant; Visit Provider Physician Assistant
DX: I10 Essential (primary) hypertension (principal); E11.9 Type 2 diabetes mellitus without complications; E78.9 Disorder of lipoprotein metabolism, unspecified; M54.16 Radiculopathy, lumbar region; G47.33 Obstructive sleep apnea (adult) (pediatric); E66.09 Other obesity due to excess calories; Z68.34 Body mass index [BMI] 34.0-34.9, adult; R06.09 Other forms of dyspnea
CPT/HCPCS: 99214

== ENCOUNTER 2023-05-06 11:43 | Outpatient (REF) | payer MEDICARE, SELFPAY ==
--- NOTE | ~2023-05-06 | XR_ITS ---
EXAMINATION: XR CHEST CLINICAL INFORMATION: Other forms of dyspnea. COMPARISON: Chest of 10/13/2012. TECHNIQUE: 2 views of the chest were obtained. FINDINGS: The lung volumes are low. There is no gross pneumothorax. Heart size is normal. Bibasilar streaky opacities, some of which may represent atelectasis, although an infectious/inflammatory process could also contribute to the appearance. Degenerative changes in the thoracic spine. No gross pleural effusion. XR/XR chest 2V IMPRESSION: 1. Bibasilar streaky opacities, some of which may represent atelectasis, although an infectious/inflammatory process could also contribute to the appearance. 2. Recommend follow-up imaging in 4-6 weeks to confirm resolution and exclude underlying pathology. This study was presented today 05/10/2023 for interpretation. PSA staff will provide results to referring provider at this time. 1.
== END 2023-05-06 11:44 | disposition home or self-care (01) ==
LOC: HO.XRAY 11:43
PROVIDERS: PCP Physician Assistant; Visit Provider Physician Assistant
DX: R06.09 Other forms of dyspnea (principal)
CPT/HCPCS: 71046

== ENCOUNTER → 2023-05-12 09:53 | Outpatient (REF) | payer MEDICARE, SELFPAY ==
--- NOTE | 2023-05-12 09:56 | CA_ITS ---
Acquisition Time: 2023-05-12 10:15:09 Total Exercise Time: 00:05:02 Test Indications: SOB Medications: SEE H Protocol: NAZ Max HR: 129 BPM 86% of Pred: 150 BPM Max BP: 220/078 mmHG Max Work Load: 7.0 METS Exercise stress test exercise 5 min 2 sec of Naz (manual changed speed and incline to complete test) protocol achieving 86% MPHR, with moderate SOB, no chest discomfort, without arrhythmias, with HTN response to exercise, 220/78 was max BP, with difficult to read EKG due to artifact , no EKG changes in recovery noted. Test reviewed with Dr. Calderón. If further testing is required pharmacoligcal stress test with nuclear imaging recomemnded. Referred By: Bobo Cruz Overread By: Romi Jones
== END ==
LOC: HO.CARD 09:53
PROVIDERS: PCP Physician Assistant; Visit Provider Physician Assistant
DX: R06.09 Other forms of dyspnea (principal)
CPT/HCPCS: 93017

== ENCOUNTER → 2023-05-12 09:56 | Outpatient (BNV) | payer MEDICARE, SELFPAY | PROVIDERS: PCP Physician Assistant; Visit Provider Nurse Practitioner | DX: R06.02 Shortness of breath (principal) | CPT/HCPCS: 93016; 93018 ==

== ENCOUNTER 2023-05-19 08:25 | Outpatient (AMB) | payer MEDICARE, SELFPAY ==
--- NOTE | 2023-05-19 08:28 | A.OFFVIS_ITS ---
Intake Vital Signs 05/19/23 08:29 Height 5 ft 10 in Weight 255 lb BMI 36.6 BP 180/72 H Blood Pressure Location Lt brachial Position Sitting Respiration 14 Pulse 87 Pulse Source Pulse Oximeter Pulse Oximetry (%) 95 Oxygen Delivery Method Room Air Intake Visit Reasons: Lumbar Radiculopathy Allergies metformin Adverse Reaction (Mild, Verified 05/19/23 08:31) Diarrhea Medication List - Last Reconciled 05/19/23 by Yana Squires LPN atorvastatin 10 mg PO DAILY 7 days betamethasone dipropionate 0.05% appl topical kxcgzncyth-onfbiowafhpuo-efza 50-325-40 mg 1 cap PO Q8H PRN glipizide ER 5 mg PO DAILY 90 days hydrocortisone 2.5% 1 appl topical BID PRN ketoconazole 2% appl topical BID lisinopril 40 mg PO DAILY miscellaneous medical supply 1 ea miscellaneous .nightly pioglitazone (Actos) 30 mg PO DAILY 90 days HPI Lumbar Radiculopathy HPI Details 72-year-old male who presents today to t he office for evaluation of lumbar radiculopathy He has been complaining of progressive numbness in the front of his thighs while walking for the past year. He gets relief from sitting down with no pain or cramping. His pain starts later in the morning or afternoon, when he has to sit down even if he walks for 5?10 minutes. He states the numbness and tingling in the bilateral thighs are interfering with his walking. He underwent an MRI, which showed some mild degenerative changes indicating moderate disc disease, and a thoracic MRI, which showed T10?11 disc herniation. His pain is described as pins and needles. He rates the pain as 8?9 on a scale of 10 in the spectrum of intensity. He also has an achy sensation in his lower back. The intensity of these sensations varies over the course of the day. He has not tried any formal physical therapy. He does back stretches every morning to help relieve the pain. Denies any symptoms in the feet. He states that the numbness is equal on both sides. FORMERLY [facility] Medical History Migraines Surgical History H/O prostate biopsy History of prostatectomy Family History Father Colon cancer Mother Stroke Social History Housing: House Alcohol intake: former Year quit: 2019 Patient Tobacco Use Status: Former Tobacco user Quit Date: quit 22 years ago e-Cigarette/Vaping Use: Never Used Substance Use Type: Marijuana service: No Current occupational status: retired Cognitive needs: No Hearing needs: No Vision needs: Yes Review of Systems Const All systems reviewed & are unremarkable except as noted in HPI and below Physical Exam Vital Signs: Last Vital Signs Pulse 87 05/19/23 08:29 Resp 14 05/19/23 08:29 BP 180/72 H 05/19/23 08:29 Pulse Ox 95 05/19/23 08:29 Oxygen Delivery Method Room Air 05/19/23 08:29 BMI result Body Mass Index 36.6 General: Appears afebrile. Alert and oriented. Mood and affect appropriate. Follows and participates in conversation appropriately. Respiratory effort is unlabored. Able to transition from sit to stand unassisted. Ambulates with bilaterally normal heel strike and toe off. Neuro Other: RAMEZ and Gaens[employer]? test Extension reproduces the pain Flexion reproduces the pain Straight leg raise is positive Results Reviewed Results Reviewed: MR Lumbar Spine INDICATION: Lumbar radiculopathy. TECHNIQUE: Multiplanar, multisequence MRI of the lumbar spine was performed without intravenous contrast. COMPARISON: None. FINDINGS: This study assumes 5 nonrib-bearing lumbar-type vertebral bodies. S-shaped curvature of the lumbar spine is noted. In the sagittal plane, there is minimal stairstep retrolisthesis between L2 and L4. Vertebral body heights are maintained. Modic 2 degenerative endplate changes are present at L2-3, and the right at L4-5-1, with trace mixed Modic 1-type change at the latter level. No suspicious marrow lesions are seen. Scattered Schmorl's nodes are present. Intervertebral disc spaces are basically desiccated with multilevel moderate loss of disc space and vacuum disc phenomenon. The conus demonstrates normal signal and caliber, with a normal termination at L1-2. Fatty atrophy of the posterior paraspinal musculature is noted. There is mild nonspecific edema of the subcutaneous fat of the lower back. Remaining visualized paraspinal soft tissues are unremarkable. Findings by level: T12-L1: Minimal broad-based disc bulge with no significant central stenosis or neural foraminal narrowing. L1-2: Mild broad-based disc bulge with shallow left paracentral protrusion, as well as bilateral facet hypertrophy. There is narrowing of the left subarticular recess with mild crowding of traversing left L2 nerve roots. Otherwise no significant central stenosis. Mild to moderate left and no significant right neural foraminal narrowing. L2-3: Mild broad-based disc bulge with left paracentral protrusion, along with bilateral facet hypertrophy and ligamentum flavum infolding. Narrowing of the left-sided subarticular recess with mild crowding of traversing left L3 nerve roots. There is no significant central stenosis. Mild to moderate right and moderate left neural foraminal narrowing. L3-4: Broad-based disc bulge, eccentric to the left, with bilateral facet hypertrophy and ligamentum flavum infolding. No significant central stenosis. Mild to moderate right and moderate left neural foraminal narrowing. There is deflection of the exiting left L3 nerve root by far lateral component of the disc osteophyte complex. L4-5: Broad-based disc osteophyte complex, eccentric to the right.. Narrowing of the right subarticular recess with slight crowding of traversing right L5 nerve roots. Otherwise no significant central stenosis. Moderate right and mild left neural foraminal narrowing, with deflection of the exiting right L4 nerve root by lateral component of the disc osteophyte complex. L5-S1: Broad-based disc osteophyte complex with small central protrusion, along with mild facet hypertrophy. Minimal narrowing of the subarticular recesses without nerve root compression. Otherwise no significant central stenosis. Moderate bilateral neural foraminal narrowing with deflection of the exiting L5 nerve roots on each side. IMPRESSION: Degenerative changes of the lumbar spine as detailed by level above. * No high-grade central stenosis. * Narrowing of the subarticular recesses at multiple levels, including on the left T11 to and L2-3 and on the right at L4-5. * Scattered neural foraminal narrowing, including moderate neural foraminal narrowing on the left at L2-3 and L3-4, on the right at L4-5, and bilaterally at L5-S1. EM04/09/23 FINDINGS: All motor and sensory nerves tested showed normal latencies, amplitudes and conduction velocities. Concentric needle EMG was performed in selected muscles of the bilateral lower extremity and lumbar paraspinals. Study revealed Signs of electric abnormalities as shown in the table below. Left TA showed increased amplitude and duration. IMPRESSION: 1. This is an abnormal study. 2. There is electrodiagnostic findings suggestive of a chronic left L5-S1 radiculopathy. 3. There is no electrodiagnostic evidence for peroneal neuropathy, tibial neuropathy. lumbosacral plexopathy, or peripheral neuropathy. XR LUMBOSACRAL SPINE: 07/28/22 FINDINGS: No fracture or dislocation. Curvature of the lower lumbar spine to the left. Bone alignment is otherwise normal. Multilevel degenerative disc disease, spondylosis and facet arthritis at all levels. Mild atherosclerotic disease. 1 cm right upper quadrant calcification, uncertain etiology. This could represent a right renal stone. IMPRESSION: Scoliosis and multilevel degenerative changes. 1 cm right upper quadrant calcification, uncertain etiology Assessment & Plan Assessment & Plan (1) Lumbar spondylosis: Code(s): M47.816 - Spondylosis without myelopathy or radiculopathy, lumbar region (2) Vertebrogenic low back pain: Code(s): M54.51 - Vertebrogenic low back pain Plan Discussed diagnostic injections vs. PNS vs. RFA as a possible treatment option for axial low back pain likely secondary to facet arthritis. We will schedule him for bilateral L3, L4, L5 medial branch diagnostic, medial branch blocks for lumbar spondylosis related pain. Discussed the risks and benefits of the procedure with the patient in detail. All questions were answered. The patient is on board with the plan. Justification for interventional therapy: ? Patient with average pain > 6/10 ? Patient has exhausted conservative therapy ? Patient actively participating in home exercise If he gets significant response to the diagnostic injections, we will consider either PNS or RFA. If he does not get significant relief from the facet blocks, then, we will consider treating the vertebral end plate degeneration. We will order physical therapy for the lower back. Advised to watch videos on exercises for disc degeneration and try do those at home. Scribed for Dr. Neal by Breann Quintero, medical technologist hematology, on 05/19/2023. I, Dr. Neal, have personally reviewed and agree with the information entered by the scribe. Orders: Orders PT Evaluation and Treatment 03/13/24 M54.16 - Radiculopathy, lumbar region Coding Level of Care Code New Pt Level 4 (23948) Diagnoses Lumbar spondylosis M47.816 Vertebrogenic low back pain M54.51
[2023-05-19 08:29] VITALS: BP 180/72; PULSE 87; RESP 14; O2SAT 95; BMI 36.6
== END 2023-05-19 09:22 | disposition home or self-care (01) ==
LOC: HO.PMC 08:26
PROVIDERS: PCP Physician Assistant; Visit Provider Internal Medicine
DX: M47.816 Spondylosis without myelopathy or radiculopathy, lumbar region (principal); M54.51 Vertebrogenic low back pain
CPT/HCPCS: 99204

== ENCOUNTER → 2023-05-19 08:25 | Outpatient (BNVA) | payer MEDICARE, SELFPAY | PROVIDERS: PCP Physician Assistant; Visit Provider Internal Medicine | DX: M47.816 Spondylosis without myelopathy or radiculopathy, lumbar region (principal); M54.51 Vertebrogenic low back pain | CPT/HCPCS: 99202 ==

== ENCOUNTER 2023-06-03 07:29 | Outpatient (REF) | payer MEDICARE, SELFPAY ==
--- NOTE | ~2023-06-03 | FL_ITS ---
EXAMINATION: XR FLUOROSCOPY WITH IMAGES CLINICAL INFORMATION: Lumbar spondylosis, without myelopathy or radiculopathy. COMPARISON: Radiographs dated 07/28/2022. TECHNIQUE: Fluoroscopy Supervised By: Dr. Robert Neal. Fluoroscopy Time: 0.1 minutes. Cumulative Dose: 3.75 mGy. DAP: 0.0651 mGym2. Images: 2. FINDINGS: The submitted images show injection needles and injected contrast situated at the levels of the bilateral L3-L4, L4-L5 and L5-S1 neural foramina. FL/FL guidance in treatment room IMPRESSION: Intraoperative fluoroscopic guidance is provided during lumbar spine pain management procedure. Please see the patient's Operative Report for full procedural details.
== END 2023-06-03 07:30 | disposition home or self-care (01) ==
LOC: CF 07:29
PROVIDERS: Visit Provider Internal Medicine
DX: M47.816 Spondylosis without myelopathy or radiculopathy, lumbar region (principal)
CPT/HCPCS: 64493; 64494; J2795; Q9967

== ENCOUNTER 2023-06-03 11:13 | Outpatient (AMB) | payer MEDICARE, SELFPAY ==
[2023-06-03 11:26] VITALS: BP 134/68; PULSE 76; RESP 18; O2SAT 97; BMI 36.6
--- NOTE | 2023-06-03 11:26 | MHC.OFFVIS ---
Intake Vital Signs 06/03/23 11:26 06/03/23 12:04 Height 5 ft 10 in Weight 255 lb BMI 36.6 BP 134/68 140/76 H Blood Pressure Location Lt brachial Lt brachial Position Sitting Sitting Respiration 18 18 Pulse 76 74 Pulse Source Pulse Oximeter Pulse Oximeter Pulse Oximetry (%) 97 98 Oxygen Delivery Method Room Air Room Air Comment Pre-Op Post-Op Intake Visit Reasons: shreya Dx L3-L4-L5 MBB Allergies metformin Adverse Reaction (Mild, Verified 05/19/23 08:31) Diarrhea HPI shreya Dx L3-L4-L5 MBB HPI Details Patient presents for scheduled procedure. Denies any recent cough, cold, infection, fever or other significant changes in medical history since last office visit. PFSH Medical History Migraines Surgical History H/O prostate biopsy History of prostatectomy Family History Father Colon cancer Mother Stroke Social History Housing: House Alcohol intake: former Year quit: 2019 Patient Tobacco Use Status: Former Tobacco user Quit Date: quit 22 years ago e-Cigarette/Vaping Use: Never Used Substance Use Type: Marijuana service: No Current occupational status: retired Cognitive needs: No Hearing needs: No Vision needs: Yes Physical Exam Vital Signs: Last Vital Signs Pulse 74 06/03/23 12:04 Resp 18 06/03/23 12:04 BP 140/76 H 06/03/23 12:04 Pulse Ox 98 06/03/23 12:04 Oxygen Delivery Method Room Air 06/03/23 12:04 BMI result Body Mass Index 36.6 Office Procedures Lumbar/Sacral Facet Inj Details: Lumbar Medial Branch Block, bilateral L3, L4 medial branches and L5 Dorsal Ramus (2 levels, 3 nerves) After obtaining written consent, pre-procedure blood pressure and pulse were recorded and are in the nursing record for review. The patient was placed in a prone position. The respective lumbosacral area was prepped with chloraprep and draped in sterile fashion. The skin over the target medial branch nerves was anesthetized with 0.5% lidocaine. A 22 gauge 3.5 inch needle was inserted into the target medial branch nerve under fluoroscopic guidance. No paresthesias were elicited with needle placement and aspiration was negative for blood and CSF. Next, 0.2cc of omnipaque 180 was injected to verify positioning. Next 0.5 ml 0.5% ropivacaine was injected (0.5cc total per level). The identical procedure was performed at the remaining levels. The skin was cleansed and a sterile bandage was applied. Following the procedure the patient's vital signs were stable. The patient tolerated the procedure well and no complications were encountered. Following the procedure the patient's vital signs were stable. The patient was discharged home in good condition with post-procedural instructions. Time Out: Immediately prior to the procedure, the following was verbally confirmed that there is a signed consent form and that the correct patient, planned procedure, site and side are consistent with documentation and that necessary equipment and/or blood products are available prior to the start of the case. Complications: none EBL: <5 cc 89841 - with Fluoroscopy 38418 - second level, with Fluoroscopy (Bilateral) Procedure code (CPT) selection complete Assessment & Plan Assessment & Plan (1) Lumbar spondylosis: Code(s): M47.816 - Spondylosis without myelopathy or radiculopathy, lumbar region Plan Patient is status post diagnostic L3, L4 medial branch and L5 dorsal ramus blocks. Patient tolerated procedure well and was discharged home in stable condition with discharge instructions. All questions were answered. We will follow-up via telephone or in clinic to assess response to therapy. A follow-up appointment was made during today's visit. Orders: Orders FL guidance in treatment room Today M47.816 - Spondylosis without myelopathy or radiculopathy, lumbar region Coding Level of Care Code Procedure Only Diagnoses Lumbar spondylosis M47.816 CPT Codes Facet Injection-Lumbar/Sacral - CPT: 10091 - with Fluoroscopy ([id number]) Facet Injection-Lumbar/Sacral - CPT: 20019 - second level, with Fluoroscopy ([id number])
[2023-06-03 12:04] VITALS: BP 140/76; PULSE 74; RESP 18; O2SAT 98
== END 2023-06-03 12:05 | disposition home or self-care (01) ==
LOC: HO.PMCPRC 11:13
PROVIDERS: PCP Physician Assistant; Visit Provider Internal Medicine
DX: M47.816 Spondylosis without myelopathy or radiculopathy, lumbar region (principal)
CPT/HCPCS: 64493; 64494

== ENCOUNTER 2023-06-07 10:57 | Outpatient (AMB) | payer MEDICARE, SELFPAY ==
--- NOTE | 2023-06-07 11:19 | A.OFFVIS_ITS ---
Intake Vital Signs 3 06/07/23 11:21 Height 5 ft 10 in Weight 255 lb BMI 36.6 BP 141/72 H Blood Pressure Location Lt brachial Position Sitting Respiration 12 Pulse 73 Pulse Source Pulse Oximeter Pulse Oximetry (%) 95 Oxygen Delivery Method Room Air Intake Visit Reasons: s/p shreya Dx L3-L4-L5 MBB Allergies metformin Adverse Reaction (Mild, Verified 06/07/23 11:22) Diarrhea Medication List - Last Reconciled 06/07/23 by Yana Squires LPN atorvastatin 10 mg PO DAILY 7 days betamethasone dipropionate 0.05% appl topical gxaaxcnmbs-uesgenbwzqtzs-tzgs 50-325-40 mg 1 cap PO Q8H PRN glipizide ER 5 mg PO DAILY 90 days hydrocortisone 2.5% 1 appl topical BID PRN ketoconazole 2% appl topical BID lisinopril 40 mg PO DAILY miscellaneous medical supply 1 ea miscellaneous .nightly pioglitazone (Actos) 30 mg PO DAILY 90 days HPI s/p shreya Dx L3-L4-L5 MBB 2 HPI0 Details 72-year-old male who presents today to t he office for a status post bilateral diagnostic L3-L4-L5 MBB. The patient reports no relief following the procedure. He has not noticed any significant improvement in his pain symptoms. He recently started doing stretching exercises at home. He reports whole back stiffness after waking up in the morning, which mildly improved after walking. He is also experiencing hip pain, which can be secondary to hip arthritis. Past procedures 06/03/23: Lumbar Medial Branch Block, bi lateral L3, L4 medial branches and L5 Dorsal Ramus (2 levels, 3 nerves): No relief. FORMERLY [facility] Medical History Migraines Surgical History H/O prostate biopsy History of prostatectomy Family History Father Colon cancer Mother Stroke Social History Housing: House Alcohol intake: former Year quit: 2019 Patient Tobacco Use Status: Former Tobacco user Quit Date: quit 22 years ago e-Cigarette/Vaping Use: Never Used Substance Use Type: Marijuana service: No Current occupational status: retired Cognitive needs: No Hearing needs: No Vision needs: Yes Review of Systems Const All systems reviewed & are unremarkable except as noted in HPI and below Physical Exam Vital Signs: Last Vital Signs Pulse 73 06/07/23 11:21 Resp 12 06/07/23 11:21 BP 141/72 H 06/07/23 11:21 Pulse Ox 95 06/07/23 11:21 Oxygen Delivery Method Room Air 06/07/23 11:21 BMI result Body Mass Index 36.6 General: Appears afebrile. Alert and oriented. Mood and affect appropriate. Follows and participates in conversation appropriately. Respiratory effort is unlabored. Able to transition from sit to stand unassisted. Ambulates with bilaterally normal heel strike and toe off. Axial loading reproduces pain. Results Reviewed Results Reviewed: Review of lumbar spine MRI Modic type 1 changes noted L4 through S1. Type 2 changes at L2 and L3. 03/23/23: MR thoracic spine. Assessment & Plan Assessment & Plan (1) Vertebrogenic low back pain: Code(s): M54.51 - Vertebrogenic low back pain Plan Discussed intracept procedure as a possible treatment option. We will schedule him for BVN ablation at L3-L4-L5-S1. Discussed the risks and benefits of the procedure with the patient in detail. All questions were answered. The patient is on board with the plan. Informed the patient that insurance approval is required. We will file a PA for approval and keep him updated. Justification for interventional therapy: ? Patient with average pain > 6/10 ? Patient has exhausted conservative therapy and failed facet interventions for axial low back pain ? Patient continuing home exercise program . Patient has a good understanding of their pain condition and has appropriate mental and social support Scribed for Dr. Neal by Erick Loyola, medical lab technician, on 06/07/2023. I, Dr. Neal, have personally reviewed and agree with the information entered by the scribe. Coding Level of Care Code Est Pt Level 3 (22971) Diagnoses Vertebrogenic low back pain M54.51
[2023-06-07 11:21] VITALS: BP 141/72; PULSE 73; RESP 12; O2SAT 95; BMI 36.6
== END 2023-06-07 11:48 | disposition home or self-care (01) ==
PROVIDERS: PCP Physician Assistant; Visit Provider Internal Medicine
DX: M54.51 Vertebrogenic low back pain (principal)
CPT/HCPCS: 99213

== ENCOUNTER → 2023-06-07 10:57 | Outpatient (BNVA) | payer MEDICARE, SELFPAY | PROVIDERS: PCP Physician Assistant; Visit Provider Internal Medicine | DX: M54.51 Vertebrogenic low back pain (principal) | CPT/HCPCS: 99212 ==

== ENCOUNTER → 2023-06-18 09:29 | Outpatient (REF) | payer MEDICARE, SELFPAY ==
--- NOTE | ~2023-06-18 | NM_ITS ---
Myocardial perfusion study Indication: Shortness of breath evaluate for myocardial ischemia Technique: The patient was brought in for a Lexiscan perfusion study on 06/18/2023. Patient performed low-level exercise and was injected 0.4 mg of Lexiscan intravenously. Within a minute of injection, 40 mCi of sestamibi was given intravenously. Images were obtained using the SPECT gamma camera interlaced with the gating device. Images were obtained in supine position. Resting perfusion study was performed on 06/24/2023. Patient was administered 40 mCi of sestamibi intravenously at rest. Images were then obtained in supine position. Images obtained with and without CT attenuation. Total DLP 99 mGy-cm. Images were processed with the software and compared side to side in short axis, horizontal long axis and vertical long axis views. Findings: The stress perfusion study showed non attenuated images show moderately reduced uptake in the inferior wall of the LV myocardium as well as the inferoseptal and adjacent inferolateral wall of the LV myocardium. Attenuation corrected images show mildly reduced uptake in the apex of the LV myocardium.. The gated study shows normal LV systolic function with calculated LVEF of 67%. LV cavity is normal size. The gated study shows normal systolic wall thickening and contraction of segments. Resting study shows no change in perfusion pattern compared to stress perfusion study. Gating at rest reveals normal systolic wall motion with ejection fraction at 73%. The findings are consistent with no clear reversible defect. Likely normal myocardial perfusion. NM/NM cardiolite stress test Impression: 1. Myocardial perfusion imaging study shows likely normal myocardial perfusion 2. Gated LVEF is 67% 3. Transient ischemic dilatation not present EKG is nondiagnostic for ischemia
--- NOTE | 2023-06-18 09:35 | CA_ITS ---
Acquisition Time: 2023-06-18 09:33:37 Total Exercise Time: 00:02:00 Test Indications: Abnormal Treadmill Test Medications: ATORVASTATIN GLIPIZIDE LISINOPRIL ACTOS Protocol: LEXISCAN Max HR: 104 BPM 69% of Pred: 150 BPM Max BP: 152/070 mmHG Max Work Load: 1.0 METS Pharmacoligcal stress test with Lexiscan injection while siting and marching in place, with mild SOB, no chest discomfort, without arrhythmais, with normotensive response to injection, with nondiagnositic EKGs. Aminophylline 75mg IVP given to reverse Lexiscan. Nuclear images pending. Test reviewed with Dr. Calderón. Referred By: Bobo Cruz Overread By: Romi Jones
== END ==
LOC: HO.CARD 09:29
PROVIDERS: PCP Physician Assistant; Visit Provider Physician Assistant
DX: R06.09 Other forms of dyspnea (principal)
CPT/HCPCS: 78452; 93017; A9500; J0280; J2785

== ENCOUNTER → 2023-06-18 09:35 | Outpatient (BNV) | payer MEDICARE, SELFPAY | PROVIDERS: PCP Physician Assistant; Visit Provider Nurse Practitioner | DX: R06.02 Shortness of breath (principal) | CPT/HCPCS: 78452; 93016; 93018 ==

== ENCOUNTER 2023-07-30 07:40 | Outpatient (REF) | payer MEDICARE, SELFPAY ==
[2023-07-30 08:42] LABS: Hematocrit 44.3 % (42.0-52.0); Hemoglobin 14.9 g/dl (14.0-18.0); Mean Corpuscular HGB Conc 33.6 g/dl (31.0-36.0); Mean Corpuscular Hemoglobin 31.2 pg (27.0-33.0); Mean Corpuscular Volume 92.9 fL (80.0-98.0); Mean Platelet Volume 10.6 fL (9.4-12.4); Platelet Count 197 X10*3/uL (160-400); Red Blood Count 4.77 X10*6/uL (4.60-5.80); Red Cell Distribution Width 12.4 % (11.0-16.0); White Blood Count 8.6 X10*3/uL (4.8-10.8)
[2023-07-30 09:15] LABS: Alanine Aminotransferase 25 U/L (0-40); Albumin Level 4.2 g/dL (3.5-5.0); Alkaline Phosphatase 75 U/L (39-117); Anion Gap 14 (12-20); Aspartate Amino Transferase 23 U/L (5-37); Bilirubin Total 0.5 mg/dL (0.0-1.0); Blood Urea Nitrogen 21 mg/dL (9-16); Calcium 9.4 mg/dL (8.4-10.2); Carbon Dioxide 24 mmol/L (22-29); Chloride 107 mmol/L (96-108); Cholesterol 153 mg/dL (<200); Estimated Glomerular Filt Rate 56; Glucose Fasting 145 mg/dL (60-99); HDL Cholesterol 46 mg/dL (>40); LDL Cholesterol Calculated 65 mg/dL (<100); Potassium 4.1 mmol/L (3.3-5.1); Sodium 141 mmol/L (135-145); Total Protein 7.2 g/dL (6.5-8.0); Triglycerides 211 mg/dL (<150)
[2023-07-30 09:29] LABS: Estimated Average Glucose 180 mg/dL; Hemoglobin A1c % 7.9 % (<6.0)
[2023-07-30 09:35] LABS: Prostate Specific Antigen Scr < 0.10 ng/mL (<0.05-4.0)
== END 2023-07-30 07:41 | disposition home or self-care (01) ==
LOC: HO.LAB 07:40
PROVIDERS: PCP Physician Assistant; Visit Provider Physician Assistant
DX: I10 Essential (primary) hypertension (principal); Z12.5 Encounter for screening for malignant neoplasm of prostate; E11.9 Type 2 diabetes mellitus without complications; E78.9 Disorder of lipoprotein metabolism, unspecified
CPT/HCPCS: 36415; 80053; 80061; 83036; 84153; 85027

== ENCOUNTER 2023-08-04 11:35 | Outpatient (AMB) | payer MEDICARE, SELFPAY ==
[2023-08-04 11:37] VITALS: BP 152/64; PULSE 76; O2SAT 95; BMI 37.7
--- NOTE | 2023-08-04 11:37 | A.OFFPC_ITS ---
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 Accompanied by: Self / Same As Patient Allergies metformin Adverse Reaction (Mild, Verified 08/04/23 11:41) Diarrhea Medication List - Last Reconciled 08/04/23 by Bobo Cruz PA-C atorvastatin 10 mg PO DAILY betamethasone dipropionate 0.05% appl topical qemeevbwub-kgusewtlzoazm-hpll 50-325-40 mg 1 cap PO Q8H PRN glipizide ER 5 mg PO DAILY 90 days hydrocortisone 2.5% 1 appl topical BID PRN ketoconazole 2% appl topical BID lisinopril 40 mg PO DAILY miscellaneous medical supply 1 ea miscellaneous .nightly pioglitazone (Actos) 30 mg PO DAILY 90 days tirzepatide (Mounjaro) 2.5 mg (0.5 mL) subcut QWEEK 4 weeks Tobacco use date assessed: 05/06/23 Fall risk assessment: No Falls in past year Last assessed Fall Risk: 08/04/23 Dental Screening Dental Screen Date: 05/06/23 HPI Type 2 diabetes, hypertension HPI Details Eda is a 72-year-old male here today for follow-up visit . ? Pmhx significant for Prostate cancer, DMII, HTN. Concern--> he does report having some in the stool as of late. He does report bowel habits have changed to be more frequently. He does report a thinner girth of stool as of late as well. Of note does have a family history colon cancer in his father. Lumbar disc disease: Has bilateral thigh numbness and tingling. Does report being somewhat off balance. Recent MRI lumbar spine showing moderate disc disease. Also did get a thoracic MRI that did show T10-T11 disc herniation. He is now followed by [facility] management in his received injections which has not helaped. No will be undergoing ? ... ? History of prostate cancer: Underwent a prostectomy and has made a full recovery . Has followup with Urology. PSA has been undetectable. ? .. ? ? JV:? Has received his new CPAP machine and has been complying with this use nightly with good effect. .. Obesity: Unfortunately gained weight since last office visit. He does admit to being fairly sedentary over the winter months. He attributes some of his weight gain to starting statin therapy. He does understand his BMI is over 30.? Weight has been stable since last office visit. He reports he has been doing more yard work as his activity. ? .. ? DMII:? His type 2 diabetes is been suboptimally controlled, has unavailable will be physically active due to his back issues. He continues on 30 mg of Actos, was unable to tolerate metformin. He is trying to be more compliant with a diabetic diet.. Continues on glipizide 5 mg as well. .. Hyperlipidemia: Has started statin therapy and cholesterol panel showing excellent response. .. Hypertension:? Blood pressure today in office slightly elevated. We have increased his lisinopril to 40 mg. He does report at times feeling pressure in his head. He reports that home blood pressures are high at times. PLAN: Will restart hydrochlorothiazide for better blood pressure control and if has side effects will consider amlodipine Laboratory Tests 02/03/23 05/03/23 07/30/23 10:51 09:10 07:51 Fasting Glucose 164 H 145 H Hgb A1c (Clinic) 7.7 H Hemoglobin A1c % 7.4 H 7.9 H Triglycerides 211 H LDL Cholesterol, C alc 65 PSA Screen < 0.10 PFSH Medical History Migraines Surgical History H/O prostate biopsy History of prostatectomy Family History Father Colon cancer Mother Stroke Social History Housing: House Alcohol intake: former Year quit: 2019 Patient Tobacco Use Status: Former Tobacco user Quit Date: quit 22 years ago e-Cigarette/Vaping Use: Never Used Substance Use Type: Marijuana service: No Current occupational status: retired Cognitive needs: No Hearing needs: No Vision needs: Yes Questionnaire Thrive Questionnaire Date Thrive assessed: 05/06/23 KRISH-7 AMB Questionnaire KRISH-7 Date KRISH - 7 assessed: 05/06/23 Source: Developed by Drs. Dusty Ansari, Mirella Meier, Vinay Soto and colleagues, with an educational ron from [employer]. Physical exam (Primary Care) Vital Signs: Last Vital Signs Pulse 76 08/04/23 11:37 BP 152/64 H 08/04/23 11:37 Pulse Ox 95 08/04/23 11:37 Oxygen Delivery Method Room Air 08/04/23 11:37 BMI result Body Mass Index 37.7 Tobacco/Smoking Status: Tobacco use Status Tobacco use date assessed 05/06/23 08/04/23 11:39 Patient Tobacco Use Status Former Tobacco user 08/04/23 11:39 e-Cigarette/Vaping Use Never Used 08/04/23 11:39 Thrive Assessment: Date of Thrive Assessment Date Thrive assessed 05/06/23 08/04/23 11:39 Assessment and Plan Assessment & Plan (1) HTN (hypertension): Code(s): I10 - Essential (primary) hypertension Qualifiers: Hypertension type: essential hypertension Qualified Code(s): I10 - Essential (primary) hypertension Plan: Patient's blood pressure slightly elevated today in office. We have increased his lisinopril to 40 mg. He reports that home blood pressures are 120 systolic. Does report at times getting pressure in his head. Will add on hydrochlorothiazide 12.5 for better blood pressure control He will continue working on lifestyle modifications to reduce his weight. Advised again to reduce salt in his diet. Goal blood pressures is to be more consistently below 140/90 (2) DMII (diabetes mellitus, type 2): Code(s): E11.9 - Type 2 diabetes mellitus without complications Qualifiers: Diabetes mellitus manager long term care insulin use: without nursing home use Diabetes mellitus complication status: without complication Qualified Code(s): E11.9 - Type 2 diabetes mellitus without complications Plan: Patient's type 2 diabetes suboptimally controlled with A1c is 7.9. Unfortunately has not been able to be physically active due to his lower back and hip issues. Continues on Actos and glipizide. We have tried to prescribe Ozempic though was much too expensive for patient. Will try alternative GLP 1 as this may be beneficial for glycemic control and w eight loss.. Will extensively work on diabetic diet and trying to be more physically active to better manage his blood sugars. Goal A1c to be below 7.0 (3) Borderline high cholesterol: Code(s): E78.9 - Disorder of lipoprotein metabolism, unspecified Plan: Has started statin therapy in his lipid panel is much improved. Goal LDL to remain below 100 (4) Lumbar radiculopathy: Code(s): M54.16 - Radiculopathy, lumbar region Plan: Patient reports he has been having worsening lower back pain and thigh numbness and tingling. He also reports bilateral hip pain and discomfort especially upon standing and walking. MRI of lumbar spine showing multilevel lumbar disc herniations. He is due for nerve ablation in his lower lumbar spine in September of 2023. He is interested in speaking with pain management clinic for pain reduction modality. (5) JV (obstructive sleep apnea): Code(s): G47.33 - Obstructive sleep apnea (adult) (pediatric) Plan: Patient continues on nightly use of CPAP machine . (6) Obese: Code(s): E66.9 - Obesity, unspecified Qualifiers: Obesity type: due to excess calories Obesity classification: adult class 1 (BMI 30 - 34.9) Serious obesity comorbidity presence: with serious comorbidity Body mass index: BMI 34.0-34.9 Qualified Code(s): E66.09 - Other obesity due to excess calories; Z68.34 - Body mass index [BMI] 34.0-34.9, adult Plan: Unfortunately gained weight since last office visit.. He will continue lifestyle modifications being more physically active and adapting to better eating habits to reduce his weight as well. (7) Colon cancer screening: Code(s): Z12.11 - Encounter for screening for malignant neoplasm of colon (8) Family history of colon cancer: Code(s): Z80.0 - Family history of malignant neoplasm of digestive organs Plan: Has a family history of colon cancer screening. Did have a colonoscopy in 2013 which was normal reports save repeat in 10 years. He does report some blood in the stool as of late and change in stool structure. He is interested in a repeat colonoscopy. Orders: Orders Hemoglobin A1c Today E11.9 - Type 2 diabetes mellitus without complications Comprehensive [place]. Panel Fast Today E11.9 - Type 2 diabetes mellitus without complications Complete Blood Count no Diff Today E11.9 - Type 2 diabetes mellitus without complications Referrals Gastroenterology Referral Z12.11 - Encounter for screening for malignant neoplasm of colon, Z80.0 - Family history of malignant neoplasm of digestive organs Medications: New tirzepatide (Mounjaro) 2.5 mg (0.5 mL) subcut QWEEK 4 weeks 2 mL 1RF E11.9 - Type 2 diabetes mellitus without complications hydrochlorothiazide 12.5 mg PO DAILY 90 days 90 tabs 1RF I10 - Essential (primary) hypertension Patient Instructions: Goal: A1c to be below 7.0, LDL to be below 100 Barriers: Adherence to physical activity and healthy eating habits. Coding Level of Care Code Est Pt Level 4 (49813) Complex EM visit Add On G2211 Diagnoses Essential hypertension I10 Hypertension type: essential hypertension Type 2 diabetes mellitus without complication, without long-term current use of insulin E11.9 Diabetes mellitus nursing home insulin use: without manager long term care use Diabetes mellitus complication status: without complication Borderline high cholesterol E78.9 Lumbar radiculopathy M54.16 JV (obstructive sleep apnea) G47.33 Class 1 obesity due to excess calories with serious comorbidity and body mass index (BMI) of 34.0 to 34.9 in adult E66.09; Z68.34 Obesity type: due to excess calories Obesity classification: adult class 1 (BMI 30 - 34.9) Serious obesity comorbidity presence: with serious comorbidity Body mass index: BMI 34.0-34.9 Colon cancer screening Z12.11 Family history of colon cancer Z80.0
== END 2023-08-04 12:22 | disposition home or self-care (01) ==
PROVIDERS: PCP Physician Assistant; Visit Provider Physician Assistant
DX: I10 Essential (primary) hypertension (principal); E11.9 Type 2 diabetes mellitus without complications; E78.9 Disorder of lipoprotein metabolism, unspecified; M54.16 Radiculopathy, lumbar region; G47.33 Obstructive sleep apnea (adult) (pediatric); E66.09 Other obesity due to excess calories; Z68.34 Body mass index [BMI] 34.0-34.9, adult; Z12.11 Encounter for screening for malignant neoplasm of colon; Z80.0 Family history of malignant neoplasm of digestive organs
CPT/HCPCS: 99214; G2211

== ENCOUNTER 2023-08-04 15:22 | Outpatient (AMB) | payer MEDICARE, SELFPAY ==
--- NOTE | 2023-08-04 15:17 | A.OFFVIS_ITS ---
Intake Visit Reasons: Re: Intracept Procedure on 09/14 Allergies metformin Adverse Reaction (Mild, Verified 08/04/23 11:41) Diarrhea HPI HPI Re: Intracept Procedure on 09/14: Details: 72-year-old male presenting via telephone with questions regarding his upcoming basivertebral nerve ablation procedure on 09/15/23. Past procedures: 06/03/23: Lumbar Medial Branch Block, bilateral L3, L4 medial branches and L5 Dorsal Ramus (2 levels, 3 nerves): No relief. PFSH Medical History Migraines Surgical History H/O prostate biopsy History of prostatectomy Family History Father Colon cancer Mother Stroke Social History Housing: House Alcohol intake: former Year quit: 2018 Patient Tobacco Use Status: Former Tobacco user e-Cigarette/Vaping Use: Never Used Substance Use Type: Marijuana service: No Current occupational status: retired Cognitive needs: No Hearing needs: No Vision needs: Yes Review of Systems Const All systems reviewed & are unremarkable except as noted in HPI and below Physical Exam General: Appears afebrile. Alert and oriented. Mood and affect appropriate. Follows and participates in conversation appropriately. Respiratory effort is unlabored. Able to transition from sit to stand unassisted. Telehealth Telehealth Telehealth Platform: Telephone Location of provider rendering services: practice address Location of patient: address on file Patient Identification confirmed using: Name, : Yes Telehealth method: voice only Patient verbally consented to treatment: Yes Patient verbally consented to billing insurance company: Yes Patient informed of any privacy concerns related to visit: Yes Minutes spent on Phone/Video with Pt.: 9 Results Reviewed Results Reviewed: 03/23/23: MR Thoracic spine Assessment & Plan Assessment & Plan (1) Vertebrogenic low back pain: Code(s): M54.51 - Vertebrogenic low back pain Category: Medical Plan Patient had questions about the procedure. Addressed all his questions and concerns. We well proceed with previously scheduled basivertebral nerve ablation at L3, L4, L5, and S1 on September 15, 2023. Scribed for Dr. Neal by Breann Quintero, medical terminologist, on 08/04/2023. I, Dr. Neal, have personally reviewed and agree with the information entered by the scribe. Coding Level of Care Code Tele Est Pt Level 2 (17594) Diagnoses Vertebrogenic low back pain M54.51
== END 2023-08-04 15:22 | disposition home or self-care (01) ==
LOC: HO.PMC 15:22
PROVIDERS: PCP Physician Assistant; Visit Provider Internal Medicine
DX: M54.51 Vertebrogenic low back pain (principal)
CPT/HCPCS: 99442

== ENCOUNTER → 2023-08-04 15:22 | Outpatient (BNVA) | payer MEDICARE, SELFPAY | PROVIDERS: PCP Physician Assistant; Visit Provider Internal Medicine ==

== ENCOUNTER 2023-09-15 10:13 | Day surgery (SDC) | payer MEDICARE, SELFPAY ==
[2023-09-13 15:21] VITALS: BMI 37.6
--- NOTE | 2023-09-14 09:26 | P.CONAN_ITS ---
Documented by User: Delaney Wheatley NP 09/14/23 09:33 HPI - Anesthesia Eval Consult details Narrative: 72yo M for L3,L4,L5 and S1 Basivertebral Nerve Ablation (Intracept RFA) Anesthesia Pre-Procedure Meds Is the patient on any of the following meds?: GLP1/DPP4 PMFSH Active Problems Active Problems: All Active Problems Family history of colon cancer (Acute) Colon cancer screening (Acute) H/O prostate cancer (Acute) Vertebrogenic low back pain (Acute) Lumbar spondylosis (Acute) Acute bronchitis (Acute) Exertional dyspnea (Acute) Lumbar radiculopathy (Acute) Rash (Acute) Nephrolithiasis (Acute) Varicella vaccination status unknown (Acute) Thigh numbness (Acute) Obese (Acute) Borderline high cholesterol (Acute) Annual physical exam (Acute) HTN (hypertension) (Acute) JV (obstructive sleep apnea) (Acute) DMII (diabetes mellitus, type 2) (Acute) Past Medical History Medical History (Updated 09/14/23 @ 07:58 by Cherry Short RN) Elevated cholesterol Sleep apnea HTN (hypertension) Diabetes Migraines Family History Family History Father Colon cancer Mother Stroke Surgical History Surgical History H/O prostate biopsy History of prostatectomy Social History Social History Housing: House Alcohol intake: former Year quit: 2019 Patient Tobacco Use Status: Former Tobacco user e-Cigarette/Vaping Use: Never Used Use of substances other than those prescribed or required for medical reasons: Yes Substance Use Type: Marijuana Are you DNR?: No Advance Directives: No Advance Directives Information Provided: Yes service: No Current occupational status: retired Cognitive needs: No Hearing needs: No Vision needs: Yes Meds Allergies Allergy/AdvReac Type Severity Reaction Status Date / Time metformin AdvReac Mild Diarrhea Verified 09/15/23 11:28 Home Medications ?Medication ?Instructions ?Recorded ?Confirmed ?Last Taken ?Type hydrocortisone 2.5 % topical cream 1 appl topical BID PRN 01/22/21 08/04/23 Unknown History betamethasone dipropionate 0.05 % appl topical 07/28/22 08/04/23 Unknown History topical cream wpidbxgjje-mbrdswbmusrhw-xnxqnbnw 1 cap PO Q8H PRN pain 07/28/22 08/04/23 Unknown History 50 mg-325 mg-40 mg capsule ketoconazole 2 % topical cream appl topical BID 07/28/22 08/04/23 Unknown History Exam Height,Weight and Vital Signs: Height 5 ft 10 in Weight 118.841 kg Pertinent Lab Results Pertinent Lab Results: Laboratory Tests 07/30/23 07:51 WBC 8.6 Hgb 14.9 Hct 44.3 Plt Count 197 Sodium 141 Potassium 4.1 Chloride 107 Carbon Dioxide 24 BUN 21 H Creatinine 1.28 Narrative Narrative: NM cardiolite stress test 06/2023 Impression: 1. Myocardial perfusion imaging study shows likely normal myocardial perfusion 2. Gated LVEF is 67% 3. Transient ischemic dilatation not present EKG is nondiagnostic for ischemia Assessment and Plan Assessment Anesthesia Assessment: Chart Reviewed Documented by User: Margo Goncalves MD 09/15/23 13:07 COUNTS INCLUDE 234 BEDS AT [facility] Past Medical History Medical History (Updated 09/14/23 @ 07:58 by Chrery Short RN) Elevated cholesterol Sleep apnea HTN (hypertension) Diabetes Migraines Family History Family History Father Colon cancer Mother Stroke Family history of problems with anesthesia: No Surgical History Surgical History H/O prostate biopsy History of prostatectomy History of Problems with Anesthesia: No Social History Social History Housing: House Alcohol intake: former Year quit: 2019 Patient Tobacco Use Status: Former Tobacco user e-Cigarette/Vaping Use: Never Used Use of substances other than those prescribed or required for medical reasons: Yes Substance Use Type: Marijuana Are you DNR?: No Advance Directives: No Advance Directives Information Provided: Yes service: No Current occupational status: retired Cognitive needs: No Hearing needs: No Vision needs: Yes Meds Allergies Allergy/AdvReac Type Severity Reaction Status Date / Time metformin AdvReac Mild Diarrhea Verified 09/15/23 11:28 Home Medications ?Medication ?Instructions ?Recorded ?Confirmed ?Last Taken ?Type hydrocortisone 2.5 % topical cream 1 appl topical BID PRN 01/22/21 08/04/23 Unknown History betamethasone dipropionate 0.05 % appl topical 07/28/22 08/04/23 Unknown History topical cream jtfxpccopf-jgpwsfwcwbnmv-vnkwzicp 1 cap PO Q8H PRN pain 07/28/22 08/04/23 Unknown History 50 mg-325 mg-40 mg capsule ketoconazole 2 % topical cream appl topical BID 07/28/22 08/04/23 Unknown History Exam Airway Mallampati Class: II (one implant, multiple caps throughout) TM Dist: >3cm Neck ROM: Full Heart: rrr Lungs: cts Assessment and Plan Assessment Anesthesia Assessment: Anesthesia Plan Discussed Final Anesthetic Review Family History of Problems with Anesthesia: No History of Problems with Anesthesia: No NPO: Yes ASA Class: III Final Preanesthetic Review: No Changes in Pt Med Stat, Meds/Allgs Chart Reviewed and Consent Obtained/Reviewed Patient Risk: Intermediate Procedure Risk: Intermediate Anesthetic Plan Anesthetic Plan: GA Disposition: Standard PACU
--- NOTE | ~2023-09-15 | FL_ITS ---
EXAMINATION: XR FLUOROSCOPY WITH IMAGES CLINICAL INFORMATION: Basivertebral nerve ablation. COMPARISON: None available. TECHNIQUE: Fluoroscopy Supervised By: Dr. Robert Neal. Fluoroscopy Time: 3 minutes and 3 seconds. Cumulative Dose: 152.59 mGy. DAP: 22.603 Gycm2. Images: 6. FINDINGS: Intraoperative fluoroscopy and spot films were performed during a procedure in the OR. Ablation probes are seen at L4 and L5 bilaterally. Please correlate with Dr. Neal' report for complete details. FL/FL guidance in OR IMPRESSION: Intraoperative fluoroscopy and spot films were obtained. Please see Dr. Neal' report for complete details.
--- NOTE | 2023-09-15 10:53 | ECG_ITS ---
Test Reason : pre op Blood Pressure : / mmHG Vent. Rate : 078 BPM Atrial Rate : 078 BPM P-R Int : 152 ms QRS Dur : 098 ms QT Int : 374 ms P-R-T Axes : 048 027 019 degrees QTc Int : 426 ms Normal sinus rhythm Normal ECG When compared with ECG of 13-OCT-2012 12:24, No significant change was found Referred By: Delaney Wheatley Electronically Signed By:Jesus Calderón
[2023-09-15 11:28] LABS: Glucose, Whole Blood 168 mg/dL (60-115)
[2023-09-15 11:48] VITALS: BP 151/67; PULSE 82; RESP 18; TEMP 36.4; O2SAT 95
[2023-09-15] MEDS: Lactated Ringers 1,000 ML 100 ML IVCONT (11:59)
[2023-09-15 13:11] LABS: MRSA Nasal PCR NEGATIVE (Negative); SA Nasal PCR NEGATIVE (Negative)
--- NOTE | 2023-09-15 13:37 | MHC.SHP ---
Pre-Procedural Eval Section A - 24 Hr Update-Section A only Date of Service: 09/15/23 The patient is an INPATIENT: No Changes since office visit: Yes Patient answered all questions The patient has been examined within 24 hours of the surgical procedure. The History & Physical has been completed within 30 days and I have reviewed it.: No Section B - Complete if H&P > 30 days Chief Complaint: Vertebrogenic low back pain Relevant Family History (Specify if Yes): No Relevant Social History: None Present Medications: see Short Stay Collaborative assessment Medical History: No relevant PMH History of Previous Operations: No relevant previous surgery Allergies: Allergies Allergy/AdvReac Type Severity Reaction Status Date / Time metformin AdvReac Mild Diarrhea Verified 09/15/23 11:28 Review of Systems Sugical H&P ROS: Negative: Constitution, Cardiovascular and Respiratory Exam Surgical H&P Exam: Normal: HEENT, Normal: Heart and Normal: Lungs Plan Diagnosis/Plan: Unchanged I have reviewed the history and physical and performed a pertinent physical examination on my patient. No changes have occurred unless specified. Time Spent With Patient Time: Total time managing care of this patient today ____ minutes.
--- NOTE | 2023-09-15 15:45 | PM.OP ---
Brief Operative Note Date of Service: 09/15/23 Pre-op diagnosis: Vertebrogenic low back pain Post-op diagnosis: same Procedure: Basivertebral nerve ablation L3, L4, L5, S1 Implants: None Surgeon: Robert Neal MD Anesthesia: GETA Was an Visual Basic Programmer used for this Procedure?: No Estimated blood loss (mL): 10 Pathology: none sent Condition: stable Disposition: PACU
--- NOTE | 2023-09-15 15:47 | P.OP_ITS ---
Operative Note Operative Note Date of Service: 09/15/23 Narrative: Basivertebral nerve (BVN) ablation ? Intracept Procedure L3, L4, L5, S1 Procedure Time Out: Patient ID confirmed, correct procedure to be performed, correct site and/or side for procedure as per marked location and correct medication(s), including antibiotic to be used for the procedure. Description of Procedure: After receiving anesthesia in the supine position, the patient was placed prone on the operating room table and all pressure points were appropriately padded. The back was sterilely prepped and draped. The C-arm was sterilely draped and moved into position to visualize the S1 vertebral body in the AP and lateral plane. The C-arm was rotated to a Davison view to square off the superior endplate at S1. The C-arm was then rotated to the right approximately 15-20 degrees for an approach to the right S1 pedicle. A skin incision was made with 15 scalpel blade. The introducer cannula with bevel tip was then introduced through the skin, subcutaneous tissue and paraspinal muscle until bony contact was made. The position was checked in the AP and lateral plane. Using a mallet, the trocar was then advanced thru the pedicle to the posterior aspect of the vertebral body using a combination of AP and lateral views to ensure appropriate traversing of the pedicle and no breaching of the pedicle medially. Once the trocar was in the posterior aspect of the S1 vertebral body, the trocar was removed from the cannula and the curved cannula assembly with the nitinol J-stylet was inserted. The spin wheel was rotated counterclockwise permitting excursion of the J-stylet. The curved cannula assembly was then advanced using a mallet in 1-2 mm increments. The J-stylet was observed to traverse the vertebral body in the AP and lateral views. The J- stylet was removed and replaced with the straight stylet to reach the BVN target. Target was reached when the tip of the stylet was 40% anterior of the posterior wall of the S1 in the lateral view (midway between the superior and inferior endplates) and it crossed the midline of the S1 spinous process in the AP view. The stylet was then removed. The bipolar radiofrequency (RF) probe was connected to the generator and then inserted into the introducer cannula in its ablation position. The spin wheel was rotated clockwise to retract the PEEK sleeve to expose the proximal electrode on the radiofrequency probe. The BVN was then ablated using [employer]?s targeted RFG algorithm. While the ablation was occurring at S1, the C-arm was moved to visualize the target at the superolateral aspect of the L5 vertebral body. The C-arm was rotated to square off the superior endplate at L5 and rotated left to obtain an oblique view. The superolateral left L5 pedicle was identified for access. The same process was utilized to place the tip of the cannular 25% anterior of the posterior wall of the L5 in the lateral view (midway between the superior and inferior endplates) and it crossed the midline of the L5 spinous process in the AP view. The stylet was then removed. The bipolar radiofrequency (RF) probe was removed from the previous vertebral body, the tip cleaned and was inserted into the introducer cannula in its ablation position. The spin wheel was rotated clockwise to retract the PEEK sleeve to expose the proximal electrode on the radiofrequency probe. The BVN was then ablated using [employer]?s targeted RFG algorithm. While the ablation was occurring at L5, the C-arm was moved to visualize the target at the superolateral aspect of the L4 vertebral body using the approach similar to the L5 vertebral body. The C-arm was rotated to square off the superior endplate at L4 and rotated approximately to the right to obtain an oblique view. The superolateral right L4 pedicle was identified, and the skin entry point identified. Same steps were followed as for L5. Target was reached when the tip of the stylet was 40% anterior of the posterior wall of the L4 in the lateral view (midway between the superior and inferior endplates) and it crossed the midline of the L4 spinous process in the AP view. The stylet was then removed. The bipolar radiofrequency (RF) probe was removed from the previous vertebral body, the tip cleaned and was inserted into the introducer cannula in its ablation position. The spin wheel was rotated clockwise to retract the PEEK sleeve to expose the proximal electrode on the radiofrequency probe. The BVN was then ablated using [employer]?s targeted RFG algorithm. While the ablation was occurring at L4, the C-arm was moved to visualize the target at the superolateral aspect of the L3 vertebral body. The C-arm was rotated to square off the superior endplate at L3 and rotated left to obtain an oblique view. The superolateral left L3 pedicle was identified for access. The same process was utilized to place the tip of the cannular 50% anterior of the posterior wall of the L3 in the lateral view (midway between the superior and inferior endplates) and it crossed the midline of the L5 spinous process in the AP view. The stylet was then removed. The bipolar radiofrequency (RF) probe was removed from the previous vertebral body, the tip cleaned and was inserted into the introducer cannula in its ablation position. The spin wheel was rotated clockwise to retract the PEEK sleeve to expose the proximal electrode on the radiofrequency probe. The BVN was then ablated using [employer]?s standard RFG algorithm. With all ablations completed, the instruments were removed from the vertebral bodies. The surgical wounds were closed with 2-0 silk sutures and a sterile dressing was applied. The patient was returned to the supine position and the anesthesia reversed. The patient tolerated the procedure well and was brought to the recovery room. The patient was provided post-op and follow up instructions. Complications: None Estimate Blood Loss: 10 mL
[2023-09-15 15:50] VITALS: BP 149/59; PULSE 81; RESP 16; TEMP 36.3; O2SAT 95
[2023-09-15 15:55] VITALS: BP 130/58; PULSE 80; RESP 16; O2SAT 95
[2023-09-15 16:00] VITALS: BP 128/51; PULSE 79; RESP 18; O2SAT 93
[2023-09-15 16:05] VITALS: BP 136/51; PULSE 73; RESP 16; O2SAT 93
[2023-09-15 16:20] VITALS: BP 126/54; PULSE 64; RESP 16; TEMP 36.2; O2SAT 96
== END 2023-09-15 17:00 | disposition home or self-care (01) ==
PROVIDERS: Registered Nurse Emergency; PCP Physician Assistant; Visit Provider Internal Medicine
PROC: (CPT 64628; principal; 2023-09-15 12:00)
DX: M54.51 Vertebrogenic low back pain (principal); I10 Essential (primary) hypertension; E11.9 Type 2 diabetes mellitus without complications; E78.00 Pure hypercholesterolemia, unspecified; G43.909 Migraine, unspecified, not intractable, without status migrainosus; G47.33 Obstructive sleep apnea (adult) (pediatric); Z79.899 Other long term (current) drug therapy; Z88.8 Allergy status to other drugs, medicaments and biological substances; Z98.890 Other specified postprocedural states; Z87.891 Personal history of nicotine dependence
CPT/HCPCS: 64628; 64629 ×2; 82947; 87640; 87641; 93005; C1889; J0690; J1100; J2250; J2371; J2405; J3010

== ENCOUNTER → 2023-09-15 10:13 | Outpatient (BNV) | payer MEDICARE, SELFPAY | PROVIDERS: PCP Physician Assistant; Visit Provider Internal Medicine | DX: M54.51 Vertebrogenic low back pain (principal) | CPT/HCPCS: 64628; 64629 ==

== ENCOUNTER → 2023-09-15 10:53 | Outpatient (BNV) | payer MEDICARE, SELFPAY | PROVIDERS: PCP Physician Assistant; Visit Provider Internal Medicine Cardiovascular Disease | DX: Z01.810 Encounter for preprocedural cardiovascular examination (principal); M54.51 Vertebrogenic low back pain | CPT/HCPCS: 93010 ==

== ENCOUNTER → 2023-09-22 08:53 | Outpatient (BNVA) | payer MEDICARE, SELFPAY | PROVIDERS: PCP Physician Assistant; Visit Provider Internal Medicine ==

== ENCOUNTER 2023-11-09 08:06 | Outpatient (REF) | payer MEDICARE, SELFPAY ==
[2023-11-09 08:23] LABS: Hematocrit 37.1 % (42.0-52.0); Hemoglobin 12.3 g/dl (14.0-18.0); Mean Corpuscular HGB Conc 33.2 g/dl (31.0-36.0); Mean Corpuscular Hemoglobin 31.7 pg (27.0-33.0); Mean Corpuscular Volume 95.6 fL (80.0-98.0); Mean Platelet Volume 10.3 fL (9.4-12.4); Platelet Count 190 X10*3/uL (160-400); Red Blood Count 3.88 X10*6/uL (4.60-5.80); Red Cell Distribution Width 12.8 % (11.0-16.0); White Blood Count 7.6 X10*3/uL (4.8-10.8)
[2023-11-09 08:41] LABS: Estimated Average Glucose 160 mg/dL; Hemoglobin A1c % 7.2 % (<6.0)
[2023-11-09 09:01] LABS: Alanine Aminotransferase 30 U/L (0-40); Albumin Level 4.3 g/dL (3.5-5.0); Alkaline Phosphatase 67 U/L (39-117); Anion Gap 13 (12-20); Aspartate Amino Transferase 23 U/L (5-37); Bilirubin Total 0.5 mg/dL (0.0-1.0); Blood Urea Nitrogen 40 mg/dL (9-16); Calcium 9.7 mg/dL (8.4-10.2); Carbon Dioxide 25 mmol/L (22-29); Chloride 110 mmol/L (96-108); Estimated Glomerular Filt Rate 43; Glucose Fasting 151 mg/dL (60-99); Potassium 5.1 mmol/L (3.3-5.1); Sodium 143 mmol/L (135-145)
== END 2023-11-09 08:07 | disposition home or self-care (01) ==
LOC: HO.LAB 08:06
PROVIDERS: PCP Physician Assistant; Visit Provider Physician Assistant
DX: E11.9 Type 2 diabetes mellitus without complications (principal)
CPT/HCPCS: 36415; 80053; 83036; 85027

== ENCOUNTER 2023-11-11 10:44 | Outpatient (REF) | payer MEDICARE, SELFPAY ==
[2023-11-11 12:13] LABS: Anion Gap 12 (12-20); Blood Urea Nitrogen 30 mg/dL (9-16); Calcium 9.5 mg/dL (8.4-10.2); Carbon Dioxide 26 mmol/L (22-29); Chloride 107 mmol/L (96-108); Estimated Glomerular Filt Rate 54; Glucose Random 253 mg/dL (60-115); Potassium 4.5 mmol/L (3.3-5.1); Sodium 140 mmol/L (135-145)
== END 2023-11-11 10:45 | disposition home or self-care (01) ==
LOC: HO.LAB 10:44
PROVIDERS: PCP Physician Assistant; Visit Provider Physician Assistant
DX: N17.9 Acute kidney failure, unspecified (principal)
CPT/HCPCS: 36415; 80048

== ENCOUNTER 2023-11-11 11:00 | Outpatient (AMB) | payer MEDICARE, SELFPAY ==
[2023-11-11 11:06] VITALS: BP 120/56; PULSE 78; O2SAT 97; BMI 35.9
--- NOTE | 2023-11-11 11:06 | MHC.PC.OV ---
Vital Signs 11/11/23 11:06 Height 5 ft 11 in Weight 257 lb 8 oz BMI 35.9 BP 120/56 L Blood Pressure Location Lt brachial Position Sitting Pulse 78 Pulse Source Pulse Oximeter Pulse Oximetry (%) 97 Oxygen Delivery Method Room Air Intake Visit Reasons: f/u DMII English Drawer Required: No Accompanied by: Self / Same As Patient Allergies metformin Adverse Reaction (Mild, Verified 11/11/23 11:25) Diarrhea Medication List - Last Reconciled 11/11/23 by Bobo Cruz PA-C atorvastatin 10 mg PO DAILY betamethasone dipropionate 0.05% appl topical tadkgpztxm-aaoolkdxnqhna-kzhi 50-325-40 mg 1 cap PO Q8H PRN glipizide ER 5 mg PO DAILY 90 days hydrochlorothiazide 12.5 mg PO DAILY 90 days hydrocortisone 2.5% 1 appl topical BID PRN ketoconazole 2% appl topical BID lisinopril 40 mg PO DAILY miscellaneous medical supply 1 ea miscellaneous .nightly pioglitazone (Actos) 30 mg PO DAILY 90 days tramadol 50 mg PO BID PRN Tobacco use date assessed: 05/06/23 Fall risk assessment: No Falls in past year Last assessed Fall Risk: 11/11/23 Dental Screening Dental Screen Date: 05/06/23 HPI f/u DMII HPI Details Eda is a 73-year-old male here today for follow-up visit . ? Pmhx significant for Prostate cancer, DMII, HTN. Lumbar disc disease: Has bilateral thigh numbness and tingling. Does report being somewhat off balance. Recent MRI lumbar spine showing moderate disc disease. Also did get a thoracic MRI that did show T10-T11 disc herniation. He is now followed by [facility] in his received injections which has not helaped. No will be undergoing ? ... ? History of prostate cancer: Underwent a prostectomy and has made a full recovery . Has followup with Urology. PSA has been undetectable. ? .. ? ? JV:? Has received his new CPAP machine and has been complying with this use nightly with good effect. .. Obesity: Unfortunately gained weight since last office visit. He does admit to being fairly sedentary over the winter months. He attributes some of his weight gain to starting statin therapy. He does understand his BMI is over 30.? Weight has been stable since last office visit. He reports he has been doing more yard work as his activity. ? .. ? DMII:? His type 2 diabetes is been suboptimally controlled, we have discussed starting GLP 1 though has been much too expensive for patient by. He continues on 30 mg of Actos and glipizide, was unable to tolerate metformin. He is trying to be more compliant with a diabetic diet.. .. Hyperlipidemia: Has started statin therapy and cholesterol panel showing excellent response. .. Hypertension:? Blood pressure today in office acceptable.. We have increased his lisinopril to 40 mg. We did add on additional hydrochlorothiazide to his blood pressure med regime which has reduce his blood pressure. Of note does report feeling somewhat dizzy today. He will continue to monitor his blood pressure at home and if continuing to feel dizzy or have lower blood pressures will discontinue hydrochlorothiazide. [facility] Medical History Elevated cholesterol Sleep apnea HTN (hypertension) Diabetes Migraines Surgical History H/O prostate biopsy History of prostatectomy Family History Father Colon cancer Mother Stroke Social History Housing: House Alcohol intake: former Year quit: 2019 Patient Tobacco Use Status: Former Tobacco user e-Cigarette/Vaping Use: Never Used Substance Use Type: Marijuana service: No Current occupational status: retired Cognitive needs: No Hearing needs: No Vision needs: Yes Questionnaire Thrive Questionnaire Date Thrive assessed: 05/06/23 KRISH-7 AMB Questionnaire KRISH-7 Date KRISH - 7 assessed: 05/06/23 Source: Developed by Drs. Dusty Ansari, Mirella Meier, Vinay Soto and colleagues, with an educational ron from [employer]. Physical exam (Primary Care) Vital Signs: Last Vital Signs Pulse 78 11/11/23 11:06 BP 120/56 L 11/11/23 11:06 Pulse Ox 97 11/11/23 11:06 Oxygen Delivery Method Room Air 11/11/23 11:06 BMI result Body Mass Index 35.9 Tobacco/Smoking Status: Tobacco use Status Tobacco use date assessed 05/06/23 11/11/23 11:07 Patient Tobacco Use Status Former Tobacco user 11/11/23 11:07 e-Cigarette/Vaping Use Never Used 11/11/23 11:07 Thrive Assessment: Date of Thrive Assessment Date Thrive assessed 05/06/23 11/11/23 11:07 Assessment and Plan Assessment & Plan (1) HTN (hypertension): Code(s): I10 - Essential (primary) hypertension Qualifiers: Hypertension type: essential hypertension Qualified Code(s): I10 - Essential (primary) hypertension Plan: Patient's blood pressure today in office acceptable. His blood pressure has been much better since starting hydrochlorothiazide. Of note does report feeling a bit dizzy today and blood pressure on the lower side. Will continue to monitor blood pressure at home and if remaining low will consider stopping hydrochlorothiazide. He will continue working on lifestyle modifications to reduce his weight. Advised again to reduce salt in his diet. Goal blood pressures is to be more consistently below 140/90 (2) DMII (diabetes mellitus, type 2): Code(s): E11.9 - Type 2 diabetes mellitus without complications Qualifiers: Diabetes mellitus complication status: without complication Diabetes mellitus staffing specialist insulin use: without staffing specialist use Qualified Code(s): E11.9 - Type 2 diabetes mellitus without complications Plan: Patient's type 2 diabetes suboptimally controlled . Unfortunately has not been able to be physically active due to his lower back and hip issues. Continues on Actos and glipizide. We have tried to prescribe Ozempic though was much too expensive for patient. Will try alternative GLP 1 as this may be beneficial for glycemic control and weight loss.. Will extensively work on diabetic diet and trying to be more physically active to better manage his blood sugars. Goal A1c to be below 7.0 (3) Borderline high cholesterol: Code(s): E78.9 - Disorder of lipoprotein metabolism, unspecified Plan: Has started statin therapy in his lipid panel is much improved. Goal LDL to remain below 100 (4) Lumbar radiculopathy: Code(s): M54.16 - Radiculopathy, lumbar region Plan: Patient reports he has been having worsening lower back pain and thigh numbness and tingling. He also reports bilateral hip pain and discomfort especially upon standing and walking. MRI of lumbar spine showing multilevel lumbar disc herniations. He is due for nerve ablation in his lower lumbar spine in September of 2023. He is interested in speaking with pain management clinic for pain reduction modality. (5) Obese: Code(s): E66.9 - Obesity, unspecified Qualifiers: Body mass index: BMI 34.0-34.9 Obesity classification: adult class 1 (BMI 30 - 34.9) Obesity type: due to excess calories Serious obesity comorbidity presence: with serious comorbidity Qualified Code(s): E66.09 - Other obesity due to excess calories; Z68.34 - Body mass index [BMI] 34.0-34.9, adult Plan: Unfortunately gained weight since last office visit.. He will continue lifestyle modifications being more physically active and adapting to better eating habits to reduce his weight as well. Orders: Orders Comprehensive [place]. Panel Fast 3 Months I10 - Essential (primary) hypertension Lipid Panel 3 Months E78.9 - Disorder of lipoprotein metabolism, unspecified Complete Blood Count no Diff 3 Months I10 - Essential (primary) hypertension Hemoglobin A1c 3 Months E11.9 - Type 2 diabetes mellitus without complications Patient Instructions: Goal: A1c to be below 7.0, blood pressure to remain below 140/90 Barriers: Adherence to physical activity and healthy eating habits Coding Level of Care Code Est Pt Level 4 (57463) Diagnoses Essential hypertension I10 Hypertension type: essential hypertension Type 2 diabetes mellitus without complication, without long-term current use of insulin E11.9 Diabetes mellitus complication status: without complication Diabetes mellitus custodial insulin use: without staffing specialist use Borderline high cholesterol E78.9 Lumbar radiculopathy M54.16 Class 1 obesity due to excess calories with serious comorbidity and body mass index (BMI) of 34.0 to 34.9 in adult E66.09; Z68.34 Body mass index: BMI 34.0-34.9 Obesity classification: adult class 1 (BMI 30 - 34.9) Obesity type: due to excess calories Serious obesity comorbidity presence: with serious comorbidity
== END 2023-11-11 11:54 | disposition home or self-care (01) ==
PROVIDERS: PCP Physician Assistant; Visit Provider Physician Assistant
DX: I10 Essential (primary) hypertension (principal); E11.9 Type 2 diabetes mellitus without complications; E78.9 Disorder of lipoprotein metabolism, unspecified; M54.16 Radiculopathy, lumbar region; E66.09 Other obesity due to excess calories; Z68.34 Body mass index [BMI] 34.0-34.9, adult
CPT/HCPCS: 99214

== ENCOUNTER 2023-11-23 10:11 | Outpatient (AMB) | payer MEDICARE, SELFPAY ==
--- NOTE | 2023-11-23 10:14 | MHC.OFFVIS ---
Vital Signs 11/23/23 10:16 Height 5 ft 11 in Weight 257 lb 15.053 oz BMI 36.0 BP 113/52 L Blood Pressure Location Lt brachial Position Sitting Pulse 59 Intake Visit Reasons: Colonoscopy Screening Intake Note: Jayjay presents to in office visit today for colonoscopy screening. CC: Patient reports that he had two episodes of rectal bleeding this year. He states that occasionally he has thin stools and his BM are not as regular since he retired. Allergies metformin Adverse Reaction (Mild, Verified 11/23/23 10:23) Diarrhea HPI HPI Colonoscopy Screening: Details: 73-year-old male here for preprocedural meeting to discuss a screening colonoscopy. He is referred by Bobo Cruz PMReji JV Hypertension High cholesterol Diabetes History of prostate cancer Migraines Lumbar degenerative disc disease with radiculopathy * SURGICAL HISTORY Prostate biopsy Prostatectomy Spinal ablation Left shoulder repair * ALLERGIES Metformin * [employer] LABS: Laboratory Tests 11/09/23 11/11/23 08:16 10:53 WBC 7.6 RBC 3.88 L Hgb 12.3 L Hct 37.1 L MCV 95.6 MCH 31.7 Plt Count 190 Estimated GFR 54 Total Bilirubin 0.5 AST 23 ALT 30 Alkaline Phosphatase 67 TODAY'S VISIT He tells me that he is having red blood filling the bowel, twice this year and a change in the diameter of his stools - both intermittently. He had a prior scope in 2013 and was told to come back in 10 years, he is unsure if he had polyps but confirms his father is a CRC survivor. There are no prior problems with anesthesia or sedation. He has JV and no cardiac problems. No ID problems. His father or CRC. [facility] Medical History Annual physical exam Acute bronchitis H/O prostate cancer Colon cancer screening Elevated cholesterol Sleep apnea HTN (hypertension) Diabetes Migraines Surgical History H/O colonoscopy H/O prostate biopsy History of prostatectomy Family History Father Colon cancer Mother Stroke Social History Housing: House Alcohol intake: former Year quit: 2019 Patient Tobacco Use Status: Former Tobacco user e-Cigarette/Vaping Use: Never Used Substance Use Type: Marijuana service: No Current occupational status: retired Cognitive needs: No Hearing needs: No Vision needs: Yes Review of Systems Const Denies fatigue, Denies fever(s), Denies night sweats, Denies poor appetite and Denies weight loss ENT Reports Normal hearing present, Denies dental pain, Denies dysphagia, Denies hearing loss, Denies mouth pain, Denies odynophagia, Denies throat swelling, Denies tongue swelling and Reports other (Dentition adequate) Card Reports no additional complaints Resp Reports no additional complaints GI Details: Denies abdominal pain, Denies melena, Denies bloating, Reports hematochezia, Denies constipation, Denies GI cramping, Denies dysphagia, Denies excessive flatus, Denies early satiety, Denies heartburn, Denies diarrhea, Denies nausea, Denies odynophagia, Denies vomiting and Denies hematemesis Skin/Breast Denies pruritus, Denies lesions, Denies rash and Denies jaundice Neuro Reports Normal hearing present and Denies Abnormal speech present Endo Denies fatigue Aller/Immun Denies throat swelling and Denies tongue swelling Physical Exam Vital Signs: Last Vital Signs Pulse 59 11/23/23 10:16 BP 113/52 L 11/23/23 10:16 BMI result Body Mass Index 36.0 Const General: cooperative, no acute distress, well developed and well groomed Nutritional Appearance: well nourished and obese Orientation/consciousness: oriented to person, oriented to place and oriented to time Limitations: No language barrier HEENT Head: Yes normocephalic and Yes atraumatic Eyes General: appearance normal, both eyes and all related structures Pupils: Equal, round and reactive pupils present Neck Neck: Yes normal visual inspection and Yes no lymphadenopathy Thyroid: Thyroid normal Resp Effort & Inspection: normal respiratory effort and able to speak in complete sentences Auscultation: clear to auscultation bilaterally Cardio Rate: regular rate Rhythm: regular rhythm Heart sounds: Normal, physiologic split S2 sound present Peripheral pulses: radial pulses present and posterior tibial pulses present GI Inspection: No distended and No Abdominal panniculus present Palpation (GI): Soft to palpation, nontender, no guarding, not rigid and No hepatosplenomegaly present Percussion: Yes normal to percussion Auscultation: normal bowel sounds Rectal Exam - Male: Yes deferred Skin General skin exam: no rashes or lesions noted, turgor normal, skin not dry, no jaundice, No spider nevi and no striae Rashes: no rashes Nails: normal Neuro General: oriented to person, oriented to place and oriented to time Cranial nerves: Yes Equal, round and reactive pupils present and Yes Normal hearing present Speech: No Abnormal speech present Extrem General: Yes normal to inspection, No clubbing, No cyanosis and No edema Psych Appearance: grossly normal and well kempt Mental Status: mental status grossly normal Speech and movement: Normal speech and movement present Affect: normal affect Attitude: cooperative Thought process: Normal thought process present and not confabulating Thought content: Normal thought content present Insight: Good insight present (Psych) Judgement: Good judgement present (Psych) Assessment & Plan Assessment & Plan (1) Pre-op examination: Code(s): Z01.818 - Encounter for other preprocedural examination Category: Medical (2) Family history of colon cancer: Code(s): Z80.0 - Family history of malignant neoplasm of digestive organs Category: Medical (3) Rectal bleeding: Code(s): K62.5 - Hemorrhage of anus and rectum Category: Medical Plan He tells me that he is having red blood filling the bowel, twice this year and a change in the diameter of his stools - both intermittently. He had a prior scope in 2013 and was told to come back in 10 years, he is unsure if he had polyps but confirms his father is a CRC survivor. There are no prior problems with anesthesia or sedation. He has JV and no cardiac problems. No ID problems. His father or CRC. Orders: Orders Colonoscopy - GI Use Only 11/23/23 Z01.818 - Encounter for other preprocedural examination, Z80.0 - Family history of malignant neoplasm of digestive organs Medications: New peg 3350-electrolytes 236-22.74-6.74 -5.86 gram (Golytely) until fecal effluent is clear; do not exceed a total volume of 2,000 mL 240 mL PO Q10M 4,000 mL 0RF 1 day Z12.11 - Encounter for screening for malignant neoplasm of colon bisacodyl (Dulcolax (bisacodyl)) 10 mg (2 x 5 mg) PO BEDTIME 4 tabs 0RF 2 days Coding Level of Care Code New Pt Level 3 (24833) Diagnoses Pre-op examination Z01.818 Family history of colon cancer Z80.0 Rectal bleeding K62.5
[2023-11-23 10:16] VITALS: BP 113/52; PULSE 59; BMI 36.0
== END 2023-11-23 10:56 | disposition home or self-care (01) ==
PROVIDERS: PCP Physician Assistant; Visit Provider Nurse Practitioner
DX: Z01.818 Encounter for other preprocedural examination (principal); Z12.11 Encounter for screening for malignant neoplasm of colon; Z80.0 Family history of malignant neoplasm of digestive organs; K62.5 Hemorrhage of anus and rectum
CPT/HCPCS: 99024

== ENCOUNTER → 2023-11-23 10:11 | Outpatient (BNVA) | payer MEDICARE, SELFPAY | PROVIDERS: PCP Physician Assistant; Visit Provider Nurse Practitioner | DX: Z01.818 Encounter for other preprocedural examination (principal); K62.5 Hemorrhage of anus and rectum; Z80.0 Family history of malignant neoplasm of digestive organs | CPT/HCPCS: 99212 ==

== ENCOUNTER 2024-02-08 09:32 | Outpatient (REF) | payer MEDICARE, SELFPAY ==
[2024-02-08 10:56] LABS: Hematocrit 41.7 % (42.0-52.0); Hemoglobin 13.5 g/dl (14.0-18.0); Mean Corpuscular HGB Conc 32.4 g/dl (31.0-36.0); Mean Corpuscular Hemoglobin 30.6 pg (27.0-33.0); Mean Corpuscular Volume 94.6 fL (80.0-98.0); Platelet Count 212 X10*3/uL (160-400); Red Blood Count 4.41 X10*6/uL (4.60-5.80); Red Cell Distribution Width 12.2 % (11.0-16.0); White Blood Count 7.6 X10*3/uL (4.8-10.8)
[2024-02-08 11:01] LABS: Estimated Average Glucose 169 mg/dL; Hemoglobin A1C 201.1564 umol/L; Hemoglobin A1c % 7.5 % (<6.0); Total Hemoglobin (HGBA1C) 3461.5734 umol/L
[2024-02-08 11:42] LABS: Alanine Aminotransferase 30 U/L (0-40); Albumin Level 4.3 g/dL (3.5-5.0); Anion Gap 12 (12-20); Aspartate Amino Transferase 30 U/L (5-37); Bilirubin Total 0.5 mg/dL (0.0-1.0); Blood Urea Nitrogen 28 mg/dL (9-16); Carbon Dioxide 27 mmol/L (22-29); Chloride 107 mmol/L (96-108); Cholesterol 148 mg/dL (<200); Estimated Glomerular Filt Rate 40; Glucose Fasting 174 mg/dL (60-99); HDL Cholesterol 43 mg/dL (>40); LDL Cholesterol Calculated 60 mg/dL (<100); Potassium 5.2 mmol/L (3.3-5.1); Sodium 141 mmol/L (135-145); Total Protein 7.2 g/dL (6.5-8.0); Triglycerides 229 mg/dL (<150)
[2024-02-08 12:35] LABS: Alkaline Phosphatase 74 U/L (39-117)
== END 2024-02-08 09:33 | disposition home or self-care (01) ==
LOC: HO.LAB 09:32
PROVIDERS: PCP Physician Assistant; Visit Provider Physician Assistant
DX: I10 Essential (primary) hypertension (principal); E78.9 Disorder of lipoprotein metabolism, unspecified; E11.9 Type 2 diabetes mellitus without complications
CPT/HCPCS: 36415; 80053; 80061; 83036; 85027

== ENCOUNTER 2024-02-15 11:07 | Outpatient (AMB) | payer MEDICARE, SELFPAY ==
--- NOTE | 2024-02-15 11:25 | MHC.PC.OV ---
Vital Signs 02/15/24 11:35 Height 5 ft 11 in Weight 257 lb 4 oz BMI 35.9 BP 144/60 H Blood Pressure Location Lt brachial Position Sitting Pulse 81 Pulse Source Pulse Oximeter Pulse Oximetry (%) 93 Oxygen Delivery Method Room Air Intake Visit Reasons: Follow-up type 2 diabetes Bead Filler Required: No Accompanied by: Self / Same As Patient Allergies metformin Adverse Reaction (Mild, Verified 02/15/24 12:00) Diarrhea Medication List - Last Reconciled 02/15/24 by Bobo Cruz PA-C atorvastatin 10 mg PO DAILY betamethasone dipropionate 0.05% appl topical bisacodyl (Dulcolax (bisacodyl)) 10 mg (2 x 5 mg) PO BEDTIME 2 days gjkoycbjgx-kcbyskuiefogg-kmvn 50-325-40 mg 1 cap PO Q8H PRN glipizide ER 5 mg PO DAILY 90 days cgbvkbpz-wfxr-kdb3-C-cipriano-bosw 500-416.6-20 mg tabs PO hydrochlorothiazide 12.5 mg PO DAILY 90 days hydrocortisone 2.5% 1 appl topical BID PRN ketoconazole 2% appl topical BID lisinopril 40 mg PO DAILY miscellaneous medical supply 1 ea miscellaneous .nightly multivitamin (One Daily Multivitamin tablet) 1 tab PO DAILY peg 3350-electrolytes 236-22.74-6.74 -5.86 gram (Golytely) 240 mL PO Q10M 1 day pioglitazone (Actos) 30 mg PO DAILY 90 days tramadol 50 mg PO BID PRN Tobacco use date assessed: 05/06/23 Fall risk assessment: No Falls in past year Last assessed Fall Risk: 02/15/24 Dental Screening Dental Screen Date: 05/06/23 HPI Follow-up type 2 diabetes HPI Details Eda is a 73-year-old male here today for follow-up visit . ? Pmhx significant for Prostate cancer, DMII, HTN. Have noted elevation in his serum creatinine though likely due to being dehydrated before lab draws as he does not drink water 10-12 hours before his lab draw. ? ... ? History of prostate cancer: Underwent a prostectomy and has made a full recovery . Has followup with Urology. PSA has been undetectable. ? .. ? ? JV:? Has received his new CPAP machine and has been complying with this use nightly with good effect. .. Obesity: Unfortunately gained weight since last office visit. He does admit to being fairly sedentary over the winter months. He attributes some of his weight gain to starting statin therapy. He does understand his BMI is over 30.? Weight has been stable since last office visit. He reports he has been doing more yard work as his activity. ? .. ? DMII:? His type 2 diabetes is been suboptimally controlled. He continues on 30 mg of Actos and glipizide, was unable to tolerate metformin. He is trying to be more compliant with a diabetic diet.. .. Hyperlipidemia: Has started statin therapy and cholesterol panel showing excellent response. .. Hypertension:? Blood pressure today in office acceptable.. We have increased his lisinopril to 40 mg. We did add on additional hydrochlorothiazide to his blood pressure med regime which has reduce his blood pressure. . He will continue to monitor his blood pressure at home and if continuing to feel dizzy or have lower blood pressures will discontinue hydrochlorothiazide. Laboratory Tests 05/03/23 07/30/23 11/09/23 09:08 07:51 08:16 RBC 3.88 L Hgb Potassium BUN 40 H Creatinine 1.61 H Fasting Glucose 151 H Hemoglobin A1c % 7.9 H 7.2 H Cholesterol Urine Microalbumin 10.0 11/11/23 02/08/24 10:53 09:47 RBC 4.41 L Hgb 13.5 L Potassium 5.2 H BUN Creatinine 1.31 1.68 H Fasting Glucose 174 H Hemoglobin A1c % 7.5 H Cholesterol 148 Urine Microalbumin [facility] Medical History Annual physical exam Acute bronchitis H/O prostate cancer Colon cancer screening Elevated cholesterol Sleep apnea HTN (hypertension) Diabetes Migraines Surgical History H/O colonoscopy H/O prostate biopsy History of prostatectomy Family History Father Colon cancer Mother Stroke Social History Housing: House Alcohol intake: former Year quit: 2019 Patient Tobacco Use Status: Former Tobacco user e-Cigarette/Vaping Use: Never Used Substance Use Type: Marijuana service: No Current occupational status: retired Cognitive needs: No Hearing needs: No Vision needs: Yes Questionnaire Thrive Questionnaire Date Thrive assessed: 05/06/23 AUDIT C Alcohol Use Questionnaire (AUDIT-C) 3. How often do you have six or more drinks on one occasion?: Never Total Score: 0 KRISH-7 AMB Questionnaire KRISH-7 Date KRISH - 7 assessed: 05/06/23 Source: Developed by Drs. Dusty Ansari, Mirella Meier, Vinay Soto and colleagues, with an educational ron from [employer]. Review of Systems Const Denies headache(s) Eyes Denies loss of vision ENT Denies vertigo, Denies dizziness, Denies headache(s) and Denies sore throat Card Denies chest pain, Denies leg edema and Denies lightheadedness Resp Denies cough, Denies hemoptysis and Denies wheezing GI Denies abdominal pain, Denies melena, Denies constipation, Denies diarrhea and Denies vomiting Denies dysuria, Denies urinary frequency and Denies urinary urgency Musc Denies arthralgias, Denies joint swelling, Denies numbness and Denies tingling Neuro Denies Abnormal speech present, Denies behavioral changes, Denies vertigo, Denies dizziness, Denies headache(s), Denies loss of vision, Denies memory loss, Denies numbness and Denies tingling Psych Denies anxiety, Denies behavioral changes, Denies depression, Denies memory loss and Denies panic attacks Surinder/Lymph Denies easy bleeding and Denies easy bruising Aller/Immun Denies wheezing Physical exam (Primary Care) Vital Signs: Last Vital Signs Pulse 81 02/15/24 11:35 BP 144/60 H 02/15/24 11:35 Pulse Ox 93 02/15/24 11:35 Oxygen Delivery Method Room Air 02/15/24 11:35 BMI result Body Mass Index 35.9 Tobacco/Smoking Status: Tobacco use Status Tobacco use date assessed 05/06/23 02/15/24 11:25 Patient Tobacco Use Status Former Tobacco user 02/15/24 11:25 e-Cigarette/Vaping Use Never Used 02/15/24 11:25 Thrive Assessment: Date of Thrive Assessment Date Thrive assessed 05/06/23 02/15/24 11:25 Const General: healthy appearing, no acute distress, alert and awake Nutritional Appearance: well nourished Orientation/consciousness: oriented to person, oriented to place and oriented to time HENMT Ears: TM's normal bilaterally General nose exam: Normal nasal mucous membranes and turbinates present Eyes Conjunctivae: conjunctivae normal Sclerae: sclerae normal Pupils: Equal, round and reactive pupils present Neck Neck: Yes no lymphadenopathy and Yes no JVD Thyroid: Thyroid normal Carotids: no bruits Resp Effort & Inspection: normal respiratory effort and not tachypneic Auscultation: no crackles, no rales, no rhonchi and no wheezes Cardio Rate: regular rate Rhythm: regular rhythm Heart sounds: no murmurs and normal S1 and S2 GI Palpation (GI): Soft to palpation, nontender, no hepatomegaly and no splenomegaly Auscultation: normal bowel sounds Skin General skin exam: no rashes or lesions noted and dry skin Neuro General: oriented to person, oriented to place and oriented to time Cranial nerves: Yes Equal, round and reactive pupils present Speech: No Abnormal speech present Gait exam (Neuro): Normal gait present Motor exam (neuro): no tremor noted Extrem Right upper extremity: full ROM Left upper extremity: full ROM Hand/finger images: 1. PAIN IN THE AREA OUTLINED. Right lower extremity: full ROM; no edema Left lower extremity: full ROM; no edema Psych Mental Status: mental status grossly normal Speech and movement: Normal speech and movement present Affect: normal affect Attitude: cooperative Thought process: Normal thought process present Office Procedures Flu Questionnaire Does the patient have a severe egg allergy?: No Does the patient have severe life threatening allergies?: No Does the patient have a fever or illness today?: No Has the patient ever had Guillain-Pass Christian Syndrome?: No Has the patient ever had any past reaction to a flu shot?: No Immunizations Fluarix Triv [id number] (PF) 45 mcg (15 mcg x 3)/0.5 mL IM syringe Performing Provider: Bobo Cruz PA-C Performing Location: [facility] Administered by: MARIAA Gallagher on 02/15/24 11:51 Dose Route Admin Location Dispensed Lot Number Expiration Date [facility] Horse Wrangler 0.5 mL IM Left Deltoid 0.5 mL [id number] 09/04/24 [id number] [employer] VIS Given Date VIS Provided VIS Publication Date 02/15/24 Single Vaccine 20 Eligibility Eligibility Date Funding Source Not VFC Eligible 02/15/24 Private Coding Level of Care Code Est Pt Level 4 (77962) Diagnoses Type 2 diabetes mellitus without complication, without long-term current use of insulin E11.9 Diabetes mellitus complication status: without complication Diabetes mellitus tank terminal gauger insulin use: without tank terminal gauger use Essential hypertension I10 Hypertension type: essential hypertension Pain of left thumb M79.645 Assessment & Plan Assessment & Plan (1) DMII (diabetes mellitus, type 2): Code(s): E11.9 - Type 2 diabetes mellitus without complications Category: Medical Qualifiers: Diabetes mellitus complication status: without complication Diabetes mellitus tank terminal gauger insulin use: without tank terminal gauger use Qualified Code(s): E11.9 - Type 2 diabetes mellitus without complications Plan: Patient's type 2 diabetes suboptimally controlled. We have tried to prescribe GLP 1 to help him with weight loss as well though was not covered by insurance Continues on p.o. diabetic medication. Will continue working on lifestyle and dietary modifications to try to get his A1c at goal below 7.0. (2) HTN (hypertension): Code(s): I10 - Essential (primary) hypertension Category: Medical Qualifiers: Hypertension type: essential hypertension Qualified Code(s): I10 - Essential (primary) hypertension Plan: Patient's blood pressure acceptable today in office. Will continue him on his current dose of antihypertensive medication. Goal blood pressures to remain below 140/90 (3) Pain of left thumb: Code(s): M79.645 - Pain in left finger(s) Category: Medical Plan: Patient reports left thumb pain over the last several months. He denies any trauma to the left thumb. He is interested in getting an x-ray Orders: Orders Influenza [id number] Immunization 02/15/24 Z23 - Encounter for immunization Comprehensive [place]. Panel Fast 6 Months E11.9 - Type 2 diabetes mellitus without complications Complete Blood Count no Diff 6 Months E11.9 - Type 2 diabetes mellitus without complications Lipid Panel 6 Months E78.9 - Disorder of lipoprotein metabolism, unspecified XR hand LT 2V 02/15/24 M79.645 - Pain in left finger(s) Prostate Specific Antigen Scr 6 Months E78.9 - Disorder of lipoprotein metabolism, unspecified, Z12.5 - Encounter for screening for malignant neoplasm of prostate Referrals Orthopedics Referral M79.645 - Pain in left finger(s)
[2024-02-15 11:35] VITALS: BP 144/60; PULSE 81; O2SAT 93; BMI 35.9
--- OUTSIDE RECORDS SUMMARY | 2024-02-16 20:37 | XMS_ITS | Patient Health Record ---
Author Organization [facility] Address [address] [place] [address] Care Team Providers Care Pillow Agent Name Role Phone Javier Vann MD Primary Care Provider Unavailabl e Debbie Bridges Unavailable [phone] Reason For Referral No Information Medications Medication SIG (Take, Route, Fr equency, Duration) Notes Start Date End Date Status Naproxen Active CeleBREX 200 MG 1 capsule Orally Onc e a day for 30 day(s) 11/30/2013 Not-Taking Physical Therapy . . . 2-3x/week for 3-4 weeks Active CeleBREX 200 MG 1 capsule Orally Onc e a day for 30 day(s) 01/03/2014 Not-Taking Lamisil 250 250 MG 1 Tab Oral Daily for 90 014 Not-Taking Problems Problem Type SNOMED Code ICD Code Onset Dates Problem Status W/U Status Risk Notes Problem Onychomycosis (812246453) Onychomycosis (110.1) Active confirmed Problem Tinea pedis (7052835) Tinea Pedis (110.4) Active confirmed Problem Tenosynovitis (55306556) Tenosynovitis (727.06) Active confirmed Problem Achilles bursitis (419237535) Achilles Tendonitis Bursitis (726.71) Active confirmed Problem Myositis (13092636) Myositis (729.1) Active confirmed Plan Of Treatment Pending Test Test Name Order Date *Liver Function Test (LFT) 11/27/2013 Insurance Providers Payer Name Payer Address Payer Phone Subscriber Number Group Number Insured Name Patient Relationship to Insured Coverage Start Date Coverage End Date [facility] [address] [place] [address] [id number] Jayjay Faulkner Self - patient is the insured Medical (General) History Medical History History ICD Code Measles Mumps Chicken pox Surgical History Surgery Date(Month/Year) dental implant 03/2014
== END 2024-02-15 12:19 | disposition home or self-care (01) ==
PROVIDERS: PCP Physician Assistant; Visit Provider Physician Assistant
DX: E11.9 Type 2 diabetes mellitus without complications (principal); I10 Essential (primary) hypertension; M79.645 Pain in left finger(s)

== ENCOUNTER 2024-02-15 11:07 | Outpatient (REF) | payer MEDICARE, SELFPAY ==
--- NOTE | ~2024-02-15 | XR_ITS ---
EXAMINATION: XR HAND, LEFT CLINICAL INFORMATION: M79.645 - Pain in left finger(s) COMPARISON: Left wrist radiograph dated 06/07/2015. TECHNIQUE: PA, lateral, and oblique views of the left hand. FINDINGS: No acute fracture or dislocation. Normal carpal alignment. No joint space narrowing or marginal osteophytes. No osseous erosion. No abnormal soft tissue calcification. No periarticular osteopenia. XR/XR hand LT 2V IMPRESSION: No acute osseous abnormality. Electronically signed by: Chaparro Sifuentes MD 02/15/2024 05:05 PM [facility]
== END 2024-02-15 11:08 | disposition home or self-care (01) ==
LOC: HO.XRAY 11:07
PROVIDERS: PCP Physician Assistant; Visit Provider Physician Assistant
DX: M79.645 Pain in left finger(s) (principal); E11.9 Type 2 diabetes mellitus without complications; Z23 Encounter for immunization; E78.9 Disorder of lipoprotein metabolism, unspecified; Z12.5 Encounter for screening for malignant neoplasm of prostate; Z79.84 Long term (current) use of oral hypoglycemic drugs
CPT/HCPCS: 73120; 90471; 90656; 99212

== ENCOUNTER 2024-03-17 10:23 | Outpatient (REF) | payer MEDICARE, SELFPAY ==
--- NOTE | ~2024-03-17 | XR_ITS ---
CLINICAL HISTORY: M79.642 - Pain in left hand 3 view left hand Comparison: None Findings: No fractures or dislocations. Mild degenerative changes of the interphalangeal joints and at the left 1st metacarpal phalangeal joint. No erosions. No radiopaque foreign body. IMPRESSION: 1. No acute findings 2. Mild degenerative changes. This document has been electronically signed by: Nicholas Luu MD on 03/20/2024 10:49:14
--- OUTSIDE RECORDS SUMMARY | 2024-03-17 10:40 | XMS_ITS | Patient Health Record ---
Author Organization [facility] Address [address] [place] [address] Care Team Providers Care Edge Inker Uppers Name Role Phone Javier Vann MD Primary Care Provider Unavailabl e Debbie Bridges Unavailable [phone] Reason For Referral No Information Medications Medication [...] Status W/U Status Risk Notes Problem Onychomycosis (437309435) Onychomycosis (110.1) Active confirmed Problem Tinea pedis (7889676) Tinea Pedis (110.4) Active confirmed Problem Tenosynovitis (30572133) Tenosynovitis (727.06) Active confirmed Problem Achilles bursitis (831071504) Achilles Tendonitis Bursitis (726.71) Active confirmed Problem Myositis (04491884) Myositis (729.1) Active confirmed Plan Of Treatment Pending Test Test Name Order Date *Liver Function Test (LFT) 11/27/2013 Insurance Providers Payer Name Payer Address Payer Phone Subscriber Number Group Number Insured Name Patient Relationship to Insured Coverage Start Date Coverage End Date [facility] [address] [place] [address] [id number] Jayjay Faulkner Self - patient is the insured Medical (General) History Medical History History ICD Code Measles Mumps Chicken pox Surgical History Surgery Date(Month/Year) dental implant 03/2014
== END 2024-03-17 10:24 | disposition home or self-care (01) ==
LOC: HO.HOSX 10:23
DX: M79.642 Pain in left hand (principal); M18.12 Unilateral primary osteoarthritis of first carpometacarpal joint, left hand
CPT/HCPCS: 73130; 99202

== ENCOUNTER 2024-03-17 10:41 | Outpatient (AMB) | payer MEDICARE, SELFPAY ==
[2024-03-17 10:52] VITALS: BMI 35.8
--- NOTE | 2024-03-17 10:52 | A.OFFVIS_ITS ---
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 States his pain is from his IP to his MCP for the last 5 month and has worse since. Pain is triggered with any movement, at times he hears a pop. When making a fist states his thumb feels restricted. Denies numbness, tingling or locking of any finger. No injury he can recall. Patient would like to discuss injection. 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 Patient states that this pain is primarily in the IP and MCP joint of the left thumb. The patient states that this pain is not constant, there are no particular events that trigger it, but states that it does occasionally get severe enough to limit his activity. Denies any numbness or tingling in the left upper extremity. Denies any locking or catching of the left thumb. No other acute complaints or concerns at this time. [facility] Medical History Annual physical exam Acute bronchitis H/O prostate cancer Colon cancer screening Elevated cholesterol Sleep apnea HTN (hypertension) Diabetes Migraines Surgical History H/O colonoscopy H/O prostate biopsy History of prostatectomy Family History Father Colon cancer Mother Stroke Social History (Updated 03/17/24 @ 11:26 by MARIAA Ortez) Housing: House Alcohol intake: former Year quit: 2019 Patient Tobacco Use Status: Former Tobacco user e-Cigarette/Vaping Use: Never Used Substance Use Type: Marijuana service: No Current occupational status: retired 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 Neuro: Normal sensation of the tips of all digits of the left hand at this time Vascular: Cap refill brisk Pain: No tenderness to palpation about the left thumb Pain with range of motion of the left thumb in the IP and MCP joints ROM: Patient was able to make a closed fist and extend all digits of the left hand fully Skin: No lacerations or abrasions. General: No ecchymosis, erythema, or evidence of infection. Psych: Appears grossly normal Affect normal Attitude cooperative Results Reviewed Results Reviewed: X-rays obtained in the office today and independently reviewed by me, Quinten Pool PA-C, demonstrate [id number]-qn-[id number] degenerative changes of the IP and CMC joint of the left thumb. Assessment & Plan Assessment & Plan (1) Osteoarthritis of left thumb: Code(s): M18.12 - Unilateral primary osteoarthritis of first carpometacarpal joint, left hand Category: Medical Plan 1. Osteoarthritis of the left thumb Patient is educated about this condition Patient was educated about the treatment options available At this time, patient states he would not like to have occupational therapy or bracing at this time, would rather manage his discomfort with conservative pain management measures such as rest, ice, elevation, pain medication as needed, and turmeric supplementation Patient was advised that if he would like to move forward with occupational therapy or bracing, he should call us for a follow-up appointment Patient was amenable to this plan Patient will follow-up as needed with any acute concerns Orders: Orders XR hand LT min 3V Today M79.642 - Pain in left hand Coding Level of Care Code New Pt Level 3 (18670) Diagnoses Osteoarthritis of left thumb M18.12
== END 2024-03-17 11:36 | disposition home or self-care (01) ==
PROVIDERS: PCP Physician Assistant
DX: M18.12 Unilateral primary osteoarthritis of first carpometacarpal joint, left hand (principal)
CPT/HCPCS: 99203

== ENCOUNTER 2024-03-29 08:17 | Day surgery (SDC) | payer MEDICARE, SELFPAY ==
[2024-03-27 14:27] VITALS: BMI 35.8
--- NOTE | 2024-03-28 09:34 | HO.ANESPROP2 ---
Documented by User: Delaney Wheatley NP 03/28/24 09:35 HPI - Anesthesia Eval Consult details Narrative: 73yo M for Colonoscopy PMFSH Active Problems Active Problems: All Active Problems Osteoarthritis of left thumb (Acute) Pain of left thumb (Acute) Rectal bleeding (Acute) Pre-op examination (Acute) MARIA E (acute kidney injury) (Acute) Family history of colon cancer (Acute) Vertebrogenic low back pain (Acute) Lumbar spondylosis (Acute) Exertional dyspnea (Acute) Lumbar radiculopathy (Acute) Rash (Acute) Nephrolithiasis (Acute) Varicella vaccination status unknown (Acute) Thigh numbness (Acute) Obese (Acute) Borderline high cholesterol (Acute) HTN (hypertension) (Acute) JV (obstructive sleep apnea) (Acute) DMII (diabetes mellitus, type 2) (Acute) Past Medical History Medical History Annual physical exam Acute bronchitis H/O prostate cancer Colon cancer screening Elevated cholesterol Sleep apnea HTN (hypertension) Diabetes Migraines Family History Family History Father Colon cancer Mother Stroke Family history of problems with anesthesia: No Surgical History Surgical History H/O colonoscopy H/O prostate biopsy History of prostatectomy History of Problems with Anesthesia: No Social History Social History Household Members Other:: lives alone Housing: House Are you a primary healthcare market consultant to a significant other at home: No Do you presently have visiting nurse or other home services: No Alcohol intake: former Year quit: 2019 Patient Tobacco Use Status: Former Tobacco user e-Cigarette/Vaping Use: Never Used Use of substances other than those prescribed or required for medical reasons: Yes Substance Use Type: Marijuana Substance Use Frequency: Daily Have you been hit, kicked, punched, or otherwise hurt by someone within the past year? 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 Cognitive needs: No Hearing needs: No Vision needs: Yes Meds Allergies Allergy/AdvReac Type Severity Reaction Status Date / Time metformin AdvReac Mild Diarrhea Verified 02/15/24 12:00 Home Medications ?Medication ?Instructions ?Recorded ?Confirmed ?Last Taken ?Type hydrocortisone 2.5 % topical cream 1 appl topical BID PRN 01/22/21 02/15/24 Unknown History betamethasone dipropionate 0.05 % appl topical 07/28/22 02/15/24 Unknown History topical cream iojhwigoco-shzejlndveajc-xdpypprf 1 cap PO Q8H PRN pain 07/28/22 02/15/24 Unknown History 50 mg-325 mg-40 mg capsule ketoconazole 2 % topical cream appl topical BID 07/28/22 02/15/24 Unknown History multivitamin (One Daily 1 tab PO DAILY 11/23/23 02/15/24 Unknown History Multivitamin tablet) Exam Height,Weight and Vital Signs: Height 5 ft 11 in Weight 116.573 kg Assessment and Plan Assessment Anesthesia Assessment: Chart Reviewed Final Anesthetic Review Family History of Problems with Anesthesia: No History of Problems with Anesthesia: No Documented by User: Sheri Mclaughlin MD 03/29/24 10:16 [facility] Past Medical History Medical History Annual physical exam Acute bronchitis H/O prostate cancer Colon cancer screening Elevated cholesterol Sleep apnea HTN (hypertension) Diabetes Migraines Family History Family History Father Colon cancer Mother Stroke Surgical History Surgical History H/O colonoscopy H/O prostate biopsy History of prostatectomy Social History Social History Household Members Other:: lives alone Housing: House Are you a primary healthcare market consultant to a significant other at home: No Do you presently have visiting nurse or other home services: No Alcohol intake: former Year quit: 2019 Patient Tobacco Use Status: Former Tobacco user e-Cigarette/Vaping Use: Never Used Use of substances other than those prescribed or required for medical reasons: Yes Substance Use Type: Marijuana Substance Use Frequency: Daily Have you been hit, kicked, punched, or otherwise hurt by someone within the past year? 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 Cognitive needs: No Hearing needs: No Vision needs: Yes Meds Allergies Allergy/AdvReac Type Severity Reaction Status Date / Time metformin AdvReac Mild Diarrhea Verified 02/15/24 12:00 Home Medications ?Medication ?Instructions ?Recorded ?Confirmed ?Last Taken ?Type hydrocortisone 2.5 % topical cream 1 appl topical BID PRN 01/22/21 02/15/24 Unknown History betamethasone dipropionate 0.05 % appl topical 07/28/22 02/15/24 Unknown History topical cream zbpamhvuio-ekfpemujyuyoa-htindboy 1 cap PO Q8H PRN pain 07/28/22 02/15/24 Unknown History 50 mg-325 mg-40 mg capsule ketoconazole 2 % topical cream appl topical BID 07/28/22 02/15/24 Unknown History multivitamin (One Daily 1 tab PO DAILY 11/23/23 02/15/24 Unknown History Multivitamin tablet) Exam Airway Mallampati Class: III TM Dist: >3cm Neck ROM: Limited Loose/Missing/Broken Teeth: No (RRR) Heart: RRR Lungs: CTA Assessment and Plan Assessment Anesthesia Assessment: Anesthesia Plan Discussed Final Anesthetic Review NPO: Yes ASA Class: III Final Preanesthetic Review: Meds/Allgs Chart Reviewed, Consent Obtained/Reviewed and Anes Risks/Benef Reviewed Patient Risk: Intermediate Procedure Risk: Low Anesthetic Plan Anesthetic Plan: MAC: Disposition: Standard PACU
[2024-03-29 09:05] VITALS: BMI 35.5
[2024-03-29] MEDS: Lactated Ringers 1,000 ML 100 ML IVCONT (09:38)
[2024-03-29 09:39] VITALS: BP 160/78; PULSE 102; RESP 18; TEMP 36.6; O2SAT 95
[2024-03-29 09:39] LABS: Glucose, Whole Blood 194 mg/dL (60-115)
--- NOTE | 2024-03-29 09:53 | MHC.SHP ---
Pre-Procedural Eval Section A - 24 Hr Update-Section A only Date of Service: 03/29/24 Section B - Complete if H&P > 30 days Chief Complaint: Family history of malignant neoplasm of digestive Details of Present Illness: dad had colon cancer at 90 Relevant Family History (Specify if Yes): Yes Relevant Social History: None Present Medications: see Short Stay Collaborative assessment Medical History: Significant History (Acute bronchitis H/O prostate cancer Colon cancer screening Elevated cholesterol Sleep apnea HTN (hypertension) Diabetes Migraines) History of Previous Operations: Relevant previous surgery/procedure and date(s) (H/O colonoscopy H/O prostate biopsy History of prostatectomy) Allergies: Allergies Allergy/AdvReac Type Severity Reaction Status Date / Time metformin AdvReac Mild Diarrhea Verified 02/15/24 12:00 Review of Systems Sugical H&P ROS: Negative: Constitution, Cardiovascular, Respiratory, Neurological, Psychiatric, Hem-Onc, Allergic/Immunologic, Gastrointestinal, Genitourinary, Musculoskeletal, Integumentary, Endocrine and Eyes/Ears/Nose/Throat Exam Surgical H&P Exam: Normal: HEENT, Normal: Heart, Normal: Lungs, Normal: Extremities, Normal: Abdomen, Normal: Skin and Normal: Neurological Plan Diagnosis/Plan: Unchanged I have reviewed the history and physical and performed a pertinent physical examination on my patient. No changes have occurred unless specified. Time Spent With Patient Time: Total time managing care of this patient today ____ minutes.
--- NOTE | 2024-03-29 10:36 | HO.OPN-COLON ---
Colonoscopy Operative Note Operative Note Date of Service: 03/29/24 Narrative: Operative Information Procedure Description: Colonoscopy Indication: screening Anesthesia: MAC COLONOSCOPY Instrument: Olympus variable stiffness adult scope 190L Colonoscopy Monitoring: Vital signs and clinical assessment, continuous EKG monitoring, Pulse oximetry, Carbon Dioxide monitoring and blood pressure monitoring were done throughout the procedure. Colon withdrawal time was 15 minutes. Procedure: The patient was placed in the left lateral decubitis position and pre-procedure medications were administered. After a digital rectal examination of the ano-rectum, the video colonoscope was inserted into the rectum and advanced through the colon to the cecum/TI. The colonoscope was slowly withdrawn in a retrograde panoramic fashion and the colon mucosa was carefully examined including a retroflexed view of the rectum. Findings and interventions are described below. Procedure Difficulty: easy Findings: Terminal Ileum-normal Cecum:normal Ascending Colon: normal Transverse Colon - 6-8 mm sessile polyp removed with cold snare Descending Colon:normal Sigmoid Colon: normal Rectum: Retroflexion with medium sized internal hemorrhoids seen, grade I, x 2 sessile polyps 4-5 mm removed with cold biopsy forceps Anorectum - normal Intervention: cold snare, cold forceps Colon preparation: [place] Bowel Preparation Scale Right colon; 2 Transverse colon: 2 Left colon; 2 (0 = Unprepared colon segment with mucosa not seen due to solid stool that cannot be cleared. 1 = Portion of mucosa of the colon segment seen, but other areas of the colon segment not well seen due to staining, residual stool and/or opaque liquid. 2 = Minor amount of residual staining, small fragments of stool and/or opaque liquid, but mucosa of colon segment seen well. 3 = Entire mucosa of colon segment seen well with no residual staining, small fragments of stool or opaque liquid) Impression and Post Procedure Diagnosis: colon polyps x 3 internal hemorrhoids Plan: High fiber diet leaflet Avoid straining at stool, epsom salts and sitz bath, anusol supps or cream Repeat Colonoscopy in 5 years due to polyps or earlier if clinically indicated Above findings were reviewed with the patient and relevant handouts were provided if indicated.
[2024-03-29 10:40] VITALS: BP 98/68; PULSE 101; RESP 18; TEMP 37; O2SAT 96
[2024-03-29 10:55] VITALS: BP 153/89; PULSE 101; RESP 18; O2SAT 98
== END 2024-03-29 11:50 | disposition home or self-care (01) ==
PROVIDERS: PCP Physician Assistant; Visit Provider Internal Medicine Gastroenterology
PROC: 0DJD8ZZ Inspection of Lower Intestinal Tract, Via Natural or Artificial Opening Endoscopic (ICD-10-PCS; CPT 45378; principal; 2024-03-29 10:20)
DX: Z12.11 Encounter for screening for malignant neoplasm of colon (principal); Z80.0 Family history of malignant neoplasm of digestive organs; D12.3 Benign neoplasm of transverse colon; K62.1 Rectal polyp; K64.0 First degree hemorrhoids; K62.5 Hemorrhage of anus and rectum; I10 Essential (primary) hypertension; E78.00 Pure hypercholesterolemia, unspecified; E11.9 Type 2 diabetes mellitus without complications; G47.33 Obstructive sleep apnea (adult) (pediatric); M51.16 Intervertebral disc disorders with radiculopathy, lumbar region; G43.909 Migraine, unspecified, not intractable, without status migrainosus; Z85.46 Personal history of malignant neoplasm of prostate; Z79.84 Long term (current) use of oral hypoglycemic drugs; Z79.899 Other long term (current) drug therapy; Z88.8 Allergy status to other drugs, medicaments and biological substances; Z98.890 Other specified postprocedural states; Z87.891 Personal history of nicotine dependence
CPT/HCPCS: 45385; 45380; 82947; 88305; J2003; J2704

== ENCOUNTER → 2024-03-29 08:17 | Outpatient (BNV) | payer MEDICARE, SELFPAY | PROVIDERS: PCP Physician Assistant; Visit Provider Internal Medicine Gastroenterology | DX: Z12.11 Encounter for screening for malignant neoplasm of colon (principal); D12.3 Benign neoplasm of transverse colon; K62.1 Rectal polyp; K64.0 First degree hemorrhoids | CPT/HCPCS: 45380; 45385 ==

== ENCOUNTER 2024-05-05 11:45 | Outpatient (REF) | payer MEDICARE, SELFPAY ==
[2024-05-05 13:19] LABS: Albumin Level 4.2 g/dL (3.5-5.0); Alkaline Phosphatase 81 U/L (39-117); Aspartate Amino Transferase 25 U/L (5-37); Bilirubin Direct 0.1 mg/dL (0.0-0.5); Bilirubin Total 0.3 mg/dL (0.0-1.0); Total Protein 7.4 g/dL (6.5-8.0)
[2024-05-05 13:41] LABS: Alanine Aminotransferase 32 U/L (0-40)
--- OUTSIDE RECORDS SUMMARY | 2024-05-05 14:05 | XMS_ITS | Clinical Summary ---
Author Organization [facility] ity Address [address] [place] [address] Care Team Providers Care Manufacturing Finance Manager Name Role Phone Unavailable Primary Care Provider Unavailabl e Social History Tobacco Use Types Packs/Day Years Used Date Smoking Tobacco: Never Assessed Sex and Gender Information Value Date Recorded Sex Assigned at Not on file Legal Sex Male 1:22 PM EST Gender Identity Not on file Sexual Orientation Not on file Plan of Treatment Health Maintenance Due Date Last Done Comments DTaP,Tdap,and Td Vaccines (1 - Tdap) 10/19/1971 Pneumococcal Vaccine: 50+ Ye ars (1 of 1 - PCV) 2002 Zoster Vaccines (1 of 2) 2002 COVID-19 Vaccine ( - 2023-2 5 season) 2023 Influenza Vaccine (#1) 2023 RSV Immunization Patients 60 + Years Old (1 - 1-dose 75+ series) 10/19/2027 HIB Vaccines Aged Out No longer eligi ble based on patient's age to complete this topic HPV Vaccines Aged Out No longer eligi ble based on patient's age to complete this topic Hepatitis A Vaccines Aged Out No long er eligible based on patient's age to complete this topic Hepatitis B Vaccines Aged Out No long er eligible based on patient's age to complete this topic IPV Vaccines Aged Out No longer eligi ble based on patient's age to complete this topic MMR Vaccines Aged Out No longer eligi ble based on patient's age to complete this topic Meningococcal ACWY Vaccine Aged Out N o longer eligible based on patient's age to complete this topic Meningococcal B Vacine Aged Out No lo nger eligible based on patient's age to complete this topic RSV Immunization Patients Un haile 20 months Aged Out No longer eligible b ased on patient's age to complete this topic Varicella Vaccines Aged Out No longer eligible based on patient's age to complete this topic
--- OUTSIDE RECORDS SUMMARY | 2024-05-05 14:05 | XMS_ITS | Patient Health Record ---
Author Organization [facility] Address [address] [place] [address] Care Team Providers Care Director Community Organization Name Role Phone Javier Vann MD Primary Care Provider Unavailabl e Debbie Bridges Unavailable [phone] Reason For Referral No Information Medications Medication [...] Status W/U Status Risk Notes Problem Onychomycosis (671628484) Onychomycosis (110.1) Active confirmed Problem Tinea pedis (4517075) Tinea Pedis (110.4) Active confirmed Problem Tenosynovitis (61530020) Tenosynovitis (727.06) Active confirmed Problem Achilles bursitis (091110510) Achilles Tendonitis Bursitis (726.71) Active confirmed Problem Myositis (31086157) Myositis (729.1) Active confirmed Plan Of Treatment Pending Test Test Name Order Date *Liver Function Test (LFT) 11/27/2013 Insurance Providers Payer Name Payer Address Payer Phone Subscriber Number Group Number Insured Name Patient Relationship to Insured Coverage Start Date Coverage End Date [facility] [address] [place] [address] [phone] [id number] Jayjay Faulkner Self - patient is the insured Medical (General) History Medical History History ICD Code Measles Mumps Chicken pox Surgical History Surgery Date(Month/Year) dental implant 03/2014
== END 2024-05-05 11:46 | disposition home or self-care (01) ==
LOC: HO.LAB 11:45
PROVIDERS: PCP Physician Assistant; Visit Provider Physician Assistant Surgical
DX: B35.1 Tinea unguium (principal); Z79.899 Other long term (current) drug therapy
CPT/HCPCS: 36415; 80076

== ENCOUNTER 2024-05-15 10:50 | Outpatient (AMB) | payer MEDICARE, SELFPAY ==
--- NOTE | 2024-05-15 10:52 | MHC.PC.OV ---
Vital Signs 05/15/24 10:59 Height 5 ft 11 in Weight 260 lb BMI 36.3 BP 138/60 Blood Pressure Location Lt brachial Position Sitting Pulse 78 Pulse Source Pulse Oximeter Pulse Oximetry (%) 95 Oxygen Delivery Method Room Air Intake Visit Reasons: f/u DMII Intake Note: Patient here for a follow up DM Sticker On Required: No Accompanied by: Self / Same As Patient Allergies metformin Adverse Reaction (Mild, Verified 05/15/24 11:21) Diarrhea Medication List - Last Reconciled 05/15/24 by Bobo Cruz PA-C atorvastatin 10 mg PO DAILY betamethasone dipropionate 0.05% appl topical bisacodyl (Dulcolax (bisacodyl)) 10 mg (2 x 5 mg) PO BEDTIME 2 days mzszxkwjrb-cnozssybvlhcq-dvdj 50-325-40 mg 1 cap PO Q8H PRN glipizide ER 5 mg PO DAILY 90 days hydrochlorothiazide 12.5 mg PO DAILY 90 days hydrocortisone 2.5% 1 appl topical BID PRN ketoconazole 2% appl topical BID lisinopril 40 mg PO DAILY miscellaneous medical supply 1 ea miscellaneous .nightly multivitamin (One Daily Multivitamin tablet) 1 tab PO DAILY peg 3350-electrolytes 236-22.74-6.74 -5.86 gram (Golytely) 240 mL PO Q10M 1 day pioglitazone (Actos) 30 mg PO DAILY 90 days Tobacco use date assessed: 05/15/24 Fall risk assessment: No Falls in past year Last assessed Fall Risk: 05/15/24 Dental Screening Dental Screen Date: 05/15/24 Did you have a dental visit in the last 12 months?: No Did you have a dental problem in the last 6 months where you did not have access to dental care?: No Was dental information given to patient?: Patient has dentist HPI f/u DMII HPI Details Eda is a 73-year-old male here today for follow-up visit . ? Pmhx significant for Prostate cancer, DMII, HTN. Concern--> He sustained a left index finger injury while playing catch with his granddaughter. The injury, likely a mallet finger, has resulted in the inability to extend the finger completely accompanied by swelling and discoloration. ? ... ? History of prostate cancer: Underwent a prostectomy and has made a full recovery . Has followup with Urology. PSA has been undetectable. ? .. ? ? JV:? Has received his new CPAP machine and has been complying with this use nightly with good effect. .. Obesity: Unfortunately gained weight since last office visit. He does admit to being fairly sedentary over the winter months. He attributes some of his weight gain to starting statin therapy. He does understand his BMI is over 30.? Weight has been stable since last office visit. He reports he has been doing more yard work as his activity. ? .. ? DMII:? His type 2 diabetes is been suboptimally controlled. Today's A1c at 8.1, He continues on 30 mg of Actos and glipizide, was unable to tolerate metformin. He is trying to be more compliant with a diabetic diet.. We have considered GLP 1 still has been much too expensive for patient. .. Hyperlipidemia: Has started statin therapy and cholesterol panel showing excellent response. .. Hypertension:? Blood pressure today in office acceptable.. He continues on lisinopril 40 mg good effect on his blood pressure We did add on additional hydrochlorothiazide to his blood pressure med regime which has reduce his blood pressure. . He will continue to monitor his blood pressure at home and if continuing to feel dizzy or have lower blood pressures will discontinue hydrochlorothiazide. Laboratory Tests 11/09/23 11/11/23 02/08/24 08:16 10:53 09:47 Hgb 13.5 L Creatinine 1.61 H 1.31 1.68 H POC Glucose Hgb A1c (Clinic) Hemoglobin A1c % 7.5 H 03/29/24 05/15/24 09:35 10:56 Hgb Creatinine POC Glucose 194 H Hgb A1c (Clinic) 8.1 H Hemoglobin A1c % [facility] Medical History Annual physical exam Acute bronchitis H/O prostate cancer Colon cancer screening Elevated cholesterol Sleep apnea HTN (hypertension) Diabetes Migraines Surgical History H/O colonoscopy H/O prostate biopsy History of prostatectomy Family History Father Colon cancer Mother Stroke Social History Household Members Other:: lives alone Housing: House Are you a primary team primary care physician to a significant other at home: No Do you presently have visiting nurse or other home services: No Alcohol intake: former Year quit: 2019 Patient Tobacco Use Status: Former Tobacco user e-Cigarette/Vaping Use: Never Used Second Hand Smoke Exposure: No Substance Use Type: Marijuana service: No Current occupational status: retired 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 1. Little interest or pleasure in doing things: not at all 2. Feeling down, depressed, or hopeless: not at all 3. Trouble falling or staying asleep, or sleeping too much: not at all 4. Feeling tired or having little energy: not at all 5. Poor appetite or overeating: not at all 6. Feeling bad about yourself - or that you are a failure or have let yourself or your family down: not at all 7. Trouble concentrating on things, such as reading the newspaper or watching television: not at all 8. Moving or speaking so slowly that other people could have noticed. Or the opposite - being so fidgety or restless that you have been moving around a lot more than usual: not at all 9. Thoughts that you would be better off or of hurting yourself in some way: not at all Total score: 0 Depression Screening Interpretation: Negative Depression Screening Done: Yes Source: Developed by Drs. Dusty Ansari, Mirella Meier, Vinay Soto and colleagues, with an educational ron from [employer]. Thrive Questionnaire Date Thrive assessed: 05/15/24 I am a: Patient What is your living situation today?: I have a steady place to live Within the past 12 months, did the food you bought not last and you didn't have the money to get more?: Never true Within the past 12 months, did you worry whether your food would run out before you got money to buy more?: Never true Do you have trouble paying for medicines?: No Do you have trouble getting transportation to medical appointments?: No Do you have trouble paying your heating and electricity bill?: No Do you have trouble taking care of your child, family member or friend?: No Do you have trouble with day-to-day activities such as bathing, preparing meals, shopping, managing finances, etc.?: No Are you currently unemployed and looking for a job?: No Are you interested in more education?: No Please select the resources that you would like help with: None Currently or been in a relationship where the following occur: No concerns reported THRIVE Score: 0 AUDIT C Alcohol Use Questionnaire (AUDIT-C) 1. How often do you have a drink containing alcohol?: Never Total Score: 0 KRISH-7 AMB Questionnaire KRISH-7 Date KRISH - 7 assessed: 05/15/24 Feeling nervous, anxious, or on edge: 0 = Not at all Not being able to stop or control worryin = Not at all Worrying too much about different things: 0 = Not at all Trouble relaxin = Not at all Being so restless that it is hard to sit still: 0 = Not at all Becoming easily annoyed or irritable: 0 = Not at all Feeling afraid as if something awful might happen: 0 = Not at all Total KRISH-7 score (0-4 normal; 5-9 mild; 10-14 moderate; 15-21 severe): 0 Source: Developed by Drs. Dusty Ansari, Mirella Meier, Vinay Soto and colleagues, with an educational ron from [employer]. Review of Systems Const Denies headache(s) Eyes Denies loss of vision ENT Denies vertigo, Denies dizziness, Denies headache(s) and Denies sore throat Card Denies chest pain, Denies leg edema and Denies lightheadedness Resp Denies cough, Denies hemoptysis and Denies wheezing GI Denies abdominal pain, Denies melena, Denies constipation, Denies diarrhea and Denies vomiting Denies dysuria, Denies urinary frequency and Denies urinary urgency Musc Denies arthralgias, Denies joint swelling, Denies numbness and Denies tingling Neuro Denies Abnormal speech present, Denies behavioral changes, Denies vertigo, Denies dizziness, Denies headache(s), Denies loss of vision, Denies memory loss, Denies numbness and Denies tingling Psych Denies anxiety, Denies behavioral changes, Denies depression, Denies memory loss and Denies panic attacks Surinder/Lymph Denies easy bleeding and Denies easy bruising Aller/Immun Denies wheezing Physical exam (Primary Care) Vital Signs: Last Vital Signs Pulse 78 05/15/24 10:59 BP 138/60 05/15/24 10:59 Pulse Ox 95 05/15/24 10:59 Oxygen Delivery Method Room Air 05/15/24 10:59 BMI result Body Mass Index 36.3 Tobacco/Smoking Status: Tobacco use Status Tobacco use date assessed 05/15/24 05/15/24 10:56 Patient Tobacco Use Status Former Tobacco user 05/15/24 10:56 e-Cigarette/Vaping Use Never Used 05/15/24 10:56 PHQ-9: PHQ-9 Score PHQ-9: Total score 0 05/15/24 11:22 Depression Screening Interpretation: Negative Thrive Assessment: Date of Thrive Assessment Date Thrive assessed 05/15/24 05/15/24 10:56 Currently or been in a relationship where the following occur: No concerns reported Const General: healthy appearing, no acute distress, alert and awake Nutritional Appearance: well nourished Orientation/consciousness: oriented to person, oriented to place and oriented to time HENMT Ears: TM's normal bilaterally General nose exam: Normal nasal mucous membranes and turbinates present Eyes Conjunctivae: conjunctivae normal Sclerae: sclerae normal Pupils: Equal, round and reactive pupils present Neck Neck: Yes no lymphadenopathy and Yes no JVD Thyroid: Thyroid normal Carotids: no bruits Resp Effort & Inspection: normal respiratory effort and not tachypneic Auscultation: no crackles, no rales, no rhonchi and no wheezes Cardio Rate: regular rate Rhythm: regular rhythm Heart sounds: no murmurs and normal S1 and S2 GI Palpation (GI): Soft to palpation, nontender, no hepatomegaly and no splenomegaly Auscultation: normal bowel sounds Skin General skin exam: no rashes or lesions noted and dry skin Neuro General: oriented to person, oriented to place and oriented to time Cranial nerves: Yes Equal, round and reactive pupils present Speech: No Abnormal speech present Gait exam (Neuro): Normal gait present Motor exam (neuro): no tremor noted Extrem Right upper extremity: full ROM Left upper extremity: full ROM Hand/finger images: 1. LEFT INDEX FINGER WITH THE INABILITY TO FLEX OR EXTENT ACTIVELY AT THE DIP Right lower extremity: full ROM; no edema Left lower extremity: full ROM; no edema Psych Mental Status: mental status grossly normal Speech and movement: Normal speech and movement present Affect: normal affect Attitude: cooperative Thought process: Normal thought process present Results AMB Hemoglobin A1c AMB Hemoglobin A1c 8.1 % Last Edit by PAUL Kaufman on 05/15/24 11:07 Results Reviewed Results Reviewed: Laboratory Last Values Hgb A1c (Clinic) 8.1 % (4.0-6.0) H 05/15/24 10:56 Coding Level of Care Code Est Pt Level 4 (88056) Diagnoses Type 2 diabetes mellitus without complication, without long-term current use of insulin E11.9 Diabetes mellitus complication status: without complication Diabetes mellitus alf insulin use: without termite control representative use Mallet finger of left hand M20.012 Essential hypertension I10 Hypertension type: essential hypertension Assessment & Plan Assessment & Plan (1) DMII (diabetes mellitus, type 2): Code(s): E11.9 - Type 2 diabetes mellitus without complications Category: Medical Qualifiers: Diabetes mellitus complication status: without complication Diabetes mellitus alf insulin use: without termite control representative use Qualified Code(s): E11.9 - Type 2 diabetes mellitus without complications Plan: Current medication regimen includes pioglitazone and glipizide, while considering reinitiating Mounjaro injections for better control and weight management. Review of insurance needed for medication affordability. (2) Mallet finger of left hand: Code(s): M20.012 - Mallet finger of left finger(s) Category: Medical Plan: Initiate conservative treatment with finger splinting. Referral to orthopedics is provided for further evaluation. Degenerative changes could benefit from surgical consultation. (3) HTN (hypertension): Code(s): I10 - Essential (primary) hypertension Category: Medical Qualifiers: Hypertension type: essential hypertension Qualified Code(s): I10 - Essential (primary) hypertension Plan: Patient's blood pressure acceptable today in office. Continue his current dose of antihypertensive medication with goal blood pressure to remain below 140/90 Orders: Orders Prostate Specific Antigen Scr 05/15/24 Z12.5 - Encounter for screening for malignant neoplasm of prostate AMB Hemoglobin A1c 05/15/24 E11.9 - Type 2 diabetes mellitus without complications Referrals Orthopedics Referral M20.012 - Mallet finger of left finger(s) Medications: Changed From ketoconazole 2% topical BID B35.9 - Dermatophytosis, unspecified To ketoconazole 2% 1 appl topical BID 30 days 60 grams 0RF B35.9 - Dermatophytosis, unspecified Patient Instructions: Goal: A1c to be below 7.0, blood pressure to remain below 140/90 Barriers: Adherence to physical activity and healthy eating habits
[2024-05-15 10:59] VITALS: BP 138/60; PULSE 78; O2SAT 95; BMI 36.3
--- OUTSIDE RECORDS SUMMARY | 2024-05-15 12:16 | XMS_ITS | Clinical Summary ---
Author Organization [facility] ity Address [address] [place] [address] Care Team Providers Care Mental Health Social Worker Name Role Phone Unavailable Primary Care Provider [...]
--- OUTSIDE RECORDS SUMMARY | 2024-05-15 12:16 | XMS_ITS | Patient Health Record ---
Author Organization [facility] Address [address] [place] [address] Care Team Providers Care Contract Associate Name Role Phone Javier Vann MD Primary Care Provider Unavailabl e Debbie Bridges Unavailable [phone] Reason For Referral No Information Medications Medication [...] Status W/U Status Risk Notes Problem Onychomycosis (013943146) Onychomycosis (110.1) Active confirmed Problem Tinea pedis (6236758) Tinea Pedis (110.4) Active confirmed Problem Tenosynovitis (74530217) Tenosynovitis (727.06) Active confirmed Problem Achilles bursitis (164904312) Achilles Tendonitis Bursitis (726.71) Active confirmed Problem Myositis (10312675) Myositis (729.1) Active confirmed Plan Of Treatment Pending Test Test Name Order Date *Liver Function Test (LFT) 11/27/2013 Insurance Providers Payer Name Payer Address Payer Phone Subscriber Number Group Number Insured Name Patient Relationship to Insured Coverage Start Date Coverage End Date [facility] [address] [place] [address] [phone] [id number] Jayjay Faulkner Self - patient is the insured Medical (General) History Medical History History ICD Code Measles Mumps Chicken pox Surgical History Surgery Date(Month/Year) dental implant 03/2014
== END 2024-05-15 11:49 | disposition home or self-care (01) ==
PROVIDERS: PCP Physician Assistant; Visit Provider Physician Assistant
DX: E11.9 Type 2 diabetes mellitus without complications (principal); M20.012 Mallet finger of left finger(s); I10 Essential (primary) hypertension

== ENCOUNTER → 2024-05-15 10:50 | Outpatient (BNVA) | payer MEDICARE, SELFPAY | PROVIDERS: PCP Physician Assistant; Visit Provider Physician Assistant | DX: E11.9 Type 2 diabetes mellitus without complications (principal); I10 Essential (primary) hypertension; M20.012 Mallet finger of left finger(s) | CPT/HCPCS: 83036; 99212 ==

== ENCOUNTER 2024-05-22 13:09 | Outpatient (AMB) | payer MEDICARE, SELFPAY ==
[2024-05-22 13:13] VITALS: BMI 36.3
--- NOTE | 2024-05-22 13:13 | A.OFFVIS_ITS ---
Vital Signs 05/22/24 13:13 Height 5 ft 11 in Weight 260 lb BMI 36.3 Intake Visit Reasons: NewProb-Mallet index finger of left hand Intake Note: Jayjay is a 73 year old right hand dominant male who presents today for a new problem visit for evaluation of a mallet index finger of left hand, DOI:05/14/24. States he was playing catch with a football and hurt the tip of his index finger . Patient seen by PCP on 05/15/24, he was given a finger splint. Currently states he has soreness, numbness and tingling. Allergies metformin Adverse Reaction (Mild, Verified 05/22/24 13:34) Diarrhea HPI HPI NewProb-Mallet index finger of left hand: Details: Jayjay is a 73 year old right hand dominant male who presents today for a new problem visit for evaluation of a mallet index finger of left hand, DOI:05/14/24. States he was playing catch with a football and hurt the tip of his index finger . Patient seen by PCP on 05/15/24, he was given a finger splint. Currently states he has soreness, numbness and tingling. [facility] Medical History Annual physical exam Acute bronchitis H/O prostate cancer Colon cancer screening Elevated cholesterol Sleep apnea HTN (hypertension) Diabetes Migraines Surgical History H/O colonoscopy H/O prostate biopsy History of prostatectomy Family History Father Colon cancer Mother Stroke Social History Household Members Other:: lives alone Housing: House Are you a primary manager critical care to a significant other at home: No Do you presently have visiting nurse or other home services: No Alcohol intake: former Year quit: 2019 Patient Tobacco Use Status: Former Tobacco user e-Cigarette/Vaping Use: Never Used Second Hand Smoke Exposure: No Substance Use Type: Marijuana service: No Current occupational status: retired 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 Neuro: Normal sensation of the tips of all digits of the left hand at this time Vascular: Cap refill brisk Pain: No tenderness to palpation about the distal phalanx or DIP joint of the left index finger ROM: Patient was unable to actively extend at the DIP joint of the left index finger Patient is able to flex and extend all other digits and joints of the left hand fully and without difficulty Skin: No lacerations or abrasions. General: No ecchymosis, erythema, or evidence of infection. Psych: Appears grossly normal Affect normal Attitude cooperative Results Reviewed Results Reviewed: X-rays obtained in the office today and independently reviewed by me, Quinten Pool PA-C, demonstrate no fracture or acute bony abnormality of the left index finger. Assessment & Plan Assessment & Plan (1) Mallet finger of left hand: Code(s): M20.012 - Mallet finger of left finger(s) Category: Medical Plan 1. Mallet finger of the left index finger Date of injury 05/14/2024 Patient is educated about this injury Patient is educated about the typical recovery course At this time, patient was informed that he will require 24/7 splinting in extension of the DIP joint of the left index finger for the next 6 weeks to allow for tendon healing Patient is educated that if the DIP joint is out of the splint for more than a few seconds to exchange the splint, his clock will restart and will need a further 6 weeks from that time Patient was amenable to this plan Patient was provided with 2 fingertips splints, and it was educated on how to change them after taking a shower Patient will follow-up in 6 weeks for reassessment, sooner with any acute concerns Orders: Orders XR hand LT min 3V Today M79.642 - Pain in left hand Coding Level of Care Code Est Pt Level 3 (04835) Diagnoses Mallet finger of left hand M20.012
== END 2024-05-22 14:00 | disposition home or self-care (01) ==
LOC: HO.HOS 13:10
PROVIDERS: PCP Physician Assistant
DX: M20.012 Mallet finger of left finger(s) (principal)
CPT/HCPCS: 99213

== ENCOUNTER 2024-05-22 13:09 | Outpatient (REF) | payer MEDICARE, SELFPAY ==
--- NOTE | ~2024-05-22 | XR_ITS ---
EXAMINATION: XR HAND 3 OR MORE VIEWS LEFT HISTORY: M79.642 - Pain in left hand COMPARISON: Comparison is made with the prior examination dated 03/17/2024. FINDINGS: Three views of the left hand are submitted. Osseous mineralization is normal. There is no fracture or dislocation. There is mild degenerative change of the 1st carpometacarpal joint. The soft tissues are unremarkable. XR/XR hand LT min 3V IMPRESSION: Mild degenerative change of the 1st carpometacarpal joint. Electronically signed by: Dusty Shiakh MD 05/23/2024 07:11 AM EDT
== END 2024-05-22 13:10 | disposition home or self-care (01) ==
LOC: HO.HOSX 13:09
PROVIDERS: PCP Physician Assistant
DX: M79.642 Pain in left hand (principal); M20.012 Mallet finger of left finger(s)
CPT/HCPCS: 73130; 99212

== ENCOUNTER → 2024-05-22 13:21 | Outpatient (BNV) | payer MEDICARE, SELFPAY | PROVIDERS: PCP Physician Assistant; Visit Provider Radiology Diagnostic Radiology | DX: M18.12 Unilateral primary osteoarthritis of first carpometacarpal joint, left hand (principal) | CPT/HCPCS: 73130 ==

== ENCOUNTER 2024-06-16 12:02 | Outpatient (REF) | payer MEDICARE, SELFPAY ==
--- OUTSIDE RECORDS SUMMARY | 2024-06-16 12:54 | XMS_ITS | Clinical Summary ---
Author Organization [facility] ity Address [address] [place] [address] Care Team Providers Care Slipcover Cutter Name Role Phone Unavailable Primary Care Provider [...] - 2023-2 5 season) 2023 Influenza Vaccine (Season Ended) 2024 RSV Immunization Adult Patie nts (1 - 1-dose 75+ series) 10/19/2027 HIB [...] age to complete this topic Meningococcal B Vaccine Aged Out No l onger eligible based on patient's age to complete this topic RSV Immunization Patients Un haile 20 months Aged Out No longer eligible b ased on patient's age to complete this topic Varicella Vaccines Aged Out No longer eligible based on patient's age to complete this topic
--- OUTSIDE RECORDS SUMMARY | 2024-06-16 12:54 | XMS_ITS | Patient Health Record ---
Author Organization [facility] Address [address] [place] [address] Care Team Providers Care Leather Tooler Name Role Phone Javier Vann MD Primary Care Provider Unavailabl e Debbie Bridges Unavailable [phone] Reason For Referral No Information Medications Medication [...] Status W/U Status Risk Notes Problem Onychomycosis (245879501) Onychomycosis (110.1) Active confirmed Problem Tinea pedis (2582350) Tinea Pedis (110.4) Active confirmed Problem Tenosynovitis (66086382) Tenosynovitis (727.06) Active confirmed Problem Achilles bursitis (682540556) Achilles Tendonitis Bursitis (726.71) Active confirmed Problem Myositis (37168415) Myositis (729.1) Active confirmed Plan Of Treatment Pending Test Test Name Order Date *Liver Function Test (LFT) 11/27/2013 Insurance Providers Payer Name Payer Address Payer Phone Subscriber Number Group Number Insured Name Patient Relationship to Insured Coverage Start Date Coverage End Date [facility] [address] [place] [address] [id number] Jayjay Faulkner Self - patient is the insured Medical (General) History Medical History History ICD Code Measles Mumps Chicken pox Surgical History Surgery Date(Month/Year) dental implant 03/2014
[2024-06-16 14:05] LABS: Alanine Aminotransferase 32 U/L (0-40); Albumin Level 4.4 g/dL (3.5-5.0); Alkaline Phosphatase 79 U/L (39-117); Aspartate Amino Transferase 24 U/L (5-37); Bilirubin Direct 0.1 mg/dL (0.0-0.5); Bilirubin Total 0.4 mg/dL (0.0-1.0); Total Protein 7.2 g/dL (6.5-8.0)
== END 2024-06-16 12:03 | disposition home or self-care (01) ==
LOC: HO.LABR 12:02
PROVIDERS: PCP Physician Assistant; Visit Provider Physician Assistant Surgical
DX: B35.1 Tinea unguium (principal)
CPT/HCPCS: 36415; 80076

== ENCOUNTER 2024-07-07 11:23 | Outpatient (AMB) | payer MEDICARE, SELFPAY ==
--- NOTE | 2024-07-07 11:25 | MHC.OFFVIS ---
Intake Visit Reasons: ov-Mallet index finger of left hand Intake Note: Jayjay is a 73 year old right hand dominant male who presents today for a new problem visit for evaluation of a mallet index finger of left hand, DOI:05/14/24. At patient last visit he was instructed 24/7 splinting in extension of the DIP joint of the left index finger for the next 6 weeks to allow for tendon healing and follow up in 6 weeks. Patient reports he has kept his finger in splint and is curious on today's outcome. Allergies metformin Adverse Reaction (Mild, Verified 07/07/24 11:32) Diarrhea HPI HPI ov-Mallet index finger of left hand: Details: Jayjay is a 73 year old right hand dominant male who presents today for a new problem visit for evaluation of a mallet index finger of left hand, DOI:05/14/24. At patient last visit he was instructed 24/7 splinting in extension of the DIP joint of the left index finger for the next 6 weeks to allow for tendon healing and follow up in 6 weeks. Patient reports he has kept his finger in splint and is curious on today's outcome. [facility]LY [facility] Medical History Annual physical exam Acute bronchitis H/O prostate cancer Colon cancer screening Elevated cholesterol Sleep apnea HTN (hypertension) Diabetes Migraines Surgical History H/O colonoscopy H/O prostate biopsy History of prostatectomy Family History Father Colon cancer Mother Stroke Social History Household Members Other:: lives alone Housing: House Are you a primary inspector health care facilities to a significant other at home: No Do you presently have visiting nurse or other home services: No Alcohol intake: former Year quit: 2019 Patient Tobacco Use Status: Former Tobacco user e-Cigarette/Vaping Use: Never Used Second Hand Smoke Exposure: No Substance Use Type: Marijuana service: No Current occupational status: retired 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 Neuro: Normal sensation of the tips of all digits of the left hand at this time Vascular: Cap refill brisk Pain: No tenderness to palpation about the distal phalanx or DIP joint of the left index finger ROM: Patient was able to actively extend at the DIP joint of the left index finger Patient is able to flex and extend all other digits and joints of the left hand fully and without difficulty Skin: No lacerations or abrasions. General: No ecchymosis, erythema, or evidence of infection. Psych: Appears grossly normal Affect normal Attitude cooperative Assessment & Plan Assessment & Plan (1) Mallet finger of left hand: Code(s): M20.012 - Mallet finger of left finger(s) Category: Medical Plan 1. Mallet finger of the left index finger Date of injury 05/14/2024 Patient is educated about this injury Patient is educated about the typical recovery course At this time, patient was informed that he will require 8 hour per day splinting in extension of the DIP joint of the left index finger for the next 6 weeks to allow for tendon healing Patient was amenable to this plan Patient will follow-up in 6 weeks for reassessment, sooner with any acute concerns Coding Level of Care Code Est Pt Level 3 (56666) Diagnoses Mallet finger of left hand M20.012
--- OUTSIDE RECORDS SUMMARY | 2024-07-07 12:22 | XMS_ITS | Patient Health Record ---
Author Organization [facility] Address [address] [place] [address] Care Team Providers Care Associate Chemist Name Role Phone Javier Vann MD Primary Care Provider Unavailabl e Debbie Bridges Unavailable [phone] Reason For Referral No Information Medications Medication [...] Status W/U Status Risk Notes Problem Onychomycosis (680710256) Onychomycosis (110.1) Active confirmed Problem Tinea pedis (2208327) Tinea Pedis (110.4) Active confirmed Problem Tenosynovitis (78172873) Tenosynovitis (727.06) Active confirmed Problem Achilles bursitis (690896929) Achilles Tendonitis Bursitis (726.71) Active confirmed Problem Myositis (81917537) Myositis (729.1) Active confirmed Plan Of Treatment Pending Test Test Name Order Date *Liver Function Test (LFT) 11/27/2013 Insurance Providers Payer Name Payer Address Payer Phone Subscriber Number Group Number Insured Name Patient Relationship to Insured Coverage Start Date Coverage End Date [facility] [address] [place] [phone] [id number] Jayjay Faulkner Self - patient is the insured Medical (General) History Medical History History ICD Code Measles Mumps Chicken pox Surgical History Surgery Date(Month/Year) dental implant 03/2014
--- OUTSIDE RECORDS SUMMARY | 2024-07-07 12:22 | XMS_ITS | Clinical Summary ---
Author Organization [facility] it[facility] Address [address] [place] [address] Care Team Providers Care Decorator Street And Building Name Role Phone Unavailable Primary Care Provider [...]
== END 2024-07-07 11:41 | disposition home or self-care (01) ==
LOC: HO.HOS 11:23
PROVIDERS: PCP Physician Assistant
DX: M20.012 Mallet finger of left finger(s) (principal)
CPT/HCPCS: 99213

== ENCOUNTER → 2024-07-07 11:23 | Outpatient (BNVA) | payer MEDICARE, SELFPAY | PROVIDERS: PCP Physician Assistant | DX: M20.012 Mallet finger of left finger(s) (principal) | CPT/HCPCS: 99212 ==

== ENCOUNTER 2024-07-28 13:50 | Outpatient (REF) | payer MEDICARE, SELFPAY ==
--- OUTSIDE RECORDS SUMMARY | 2024-07-28 13:53 | XMS_ITS | Patient Health Record ---
Author Organization [facility] Address [address] [place] [address] Care Team Providers Care Mapping Analyst Name Role Phone Javier Vann MD Primary Care Provider Unavailabl e Debbie Bridges Unavailable [phone] Reason For Referral No Information Medications Medication [...] Status W/U Status Risk Notes Problem Onychomycosis (686504485) Onychomycosis (110.1) Active confirmed Problem Tinea pedis (9794150) Tinea Pedis (110.4) Active confirmed Problem Tenosynovitis (14772907) Tenosynovitis (727.06) Active confirmed Problem Achilles bursitis (161716456) Achilles Tendonitis Bursitis (726.71) Active confirmed Problem Myositis (16397281) Myositis (729.1) Active confirmed Plan Of Treatment Pending Test Test Name Order Date *Liver Function Test (LFT) 11/27/2013 Insurance Providers Payer Name Payer Address Payer Phone Subscriber Number Group Number Insured Name Patient Relationship to Insured Coverage Start Date Coverage End Date [facility] [address] [place] [phone] [id number] Jayjay Faulkner Self - patient is the insured Medical (General) History Medical History History ICD Code Measles Mumps Chicken pox Surgical History Surgery Date(Month/Year) dental implant 03/2014
[2024-07-28 16:09] LABS: Hematocrit 38.5 % (42.0-52.0); Mean Corpuscular HGB Conc 33.8 g/dl (31.0-36.0); Mean Corpuscular Volume 91.9 fL (80.0-98.0); Mean Platelet Volume 10.7 fL (9.4-12.4); Platelet Count 210 X10*3/uL (160-400); Red Blood Count 4.19 X10*6/uL (4.60-5.80); Red Cell Distribution Width 12.1 % (11.0-16.0)
[2024-07-28 16:47] LABS: Alanine Aminotransferase 33 U/L (0-40); Albumin Level 4.4 g/dL (3.5-5.0); Alkaline Phosphatase 73 U/L (39-117); Aspartate Amino Transferase 24 U/L (5-37); Bilirubin Direct < 0.2 mg/dL (0.0-0.5); Bilirubin Total 0.2 mg/dL (0.0-1.0)
[2024-07-28 16:48] LABS: Alanine Aminotransferase 42 U/L (0-40); Albumin Level 4.4 g/dL (3.5-5.0); Alkaline Phosphatase 73 U/L (39-117); Anion Gap 14 (12-20); Aspartate Amino Transferase 29 U/L (5-37); Bilirubin Total 0.2 mg/dL (0.0-1.0); Blood Urea Nitrogen 24 mg/dL (9-16); Calcium 9.3 mg/dL (8.4-10.2); Carbon Dioxide 27 mmol/L (22-29); Chloride 108 mmol/L (96-108); Cholesterol 156 mg/dL (<200); Estimated Glomerular Filt Rate 56; Glucose Fasting 217 mg/dL (60-99); Glucose Random 216 mg/dL (60-115); HDL Cholesterol 42 mg/dL (>40); LDL Cholesterol Calculated 50 mg/dL (<100); Potassium 4.6 mmol/L (3.3-5.1); Sodium 144 mmol/L (135-145); Total Protein 6.9 g/dL (6.5-8.0); Triglycerides 321 mg/dL (<150)
[2024-07-28 16:59] LABS: Prostate Specific Antigen Scr < 0.10 ng/mL (<0.05-4.0)
== END 2024-07-28 13:51 | disposition home or self-care (01) ==
LOC: HO.LABR 13:50
PROVIDERS: PCP Physician Assistant; Visit Provider Physician Assistant Surgical
DX: B35.1 Tinea unguium (principal); N17.9 Acute kidney failure, unspecified; E11.9 Type 2 diabetes mellitus without complications; E78.9 Disorder of lipoprotein metabolism, unspecified; Z12.5 Encounter for screening for malignant neoplasm of prostate
CPT/HCPCS: 36415; 80048; 80053; 80061; 80076; 82248; 84153; 85027

== ENCOUNTER 2024-08-15 11:23 | Outpatient (AMB) | payer MEDICARE, SELFPAY ==
--- NOTE | 2024-08-15 11:31 | A.OFFPC_ITS ---
Vital Signs 08/15/24 11:38 Height 5 ft 11 in Weight 259 lb 8 oz BMI 36.2 BP 144/60 H Blood Pressure Location Lt brachial Position Sitting Pulse 78 Pulse Source Pulse Oximeter Temp 96.9 F Temp Source Temporal Artery Scan Pulse Oximetry (%) 98 Oxygen Delivery Method Room Air Intake Visit Reasons: pe Nurse Charge Rn Required: No Information Interpreted: non-clinical & clinical Capacity Analyst: Not Required per policy Accompanied by: Self / Same As Patient Allergies metformin Adverse Reaction (Mild, Verified 08/15/24 11:43) Diarrhea Medication List - Last Reconciled 08/15/24 by Bobo Cruz PA-C atorvastatin 10 mg PO DAILY betamethasone dipropionate 0.05% appl topical bisacodyl (Dulcolax (bisacodyl)) 10 mg (2 x 5 mg) PO BEDTIME 2 days jsmxdhrbdw-rvykdbkyrwnft-shai 50-325-40 mg 1 cap PO Q8H PRN glipizide ER 5 mg PO DAILY 90 days hydrochlorothiazide 12.5 mg PO DAILY 90 days hydrocortisone 2.5% 1 appl topical BID PRN ketoconazole 2% 1 appl topical BID 30 days lisinopril 40 mg PO DAILY miscellaneous medical supply 1 ea miscellaneous .nightly multivitamin (One Daily Multivitamin tablet) 1 tab PO DAILY pioglitazone (Actos) 30 mg PO DAILY 90 days Tobacco use date assessed: 05/15/24 Fall risk assessment: No Falls in past year Last assessed Fall Risk: 08/15/24 Dental Screening Dental Screen Date: 05/15/24 HPI pe HPI Details Eda is a 73-year-old male here today for a routine annual physical ? Pmhx significant for Prostate cancer, DMII, HTN. Concern--> continues to have shortness of breath on minimal exertion. He is a former smoker though quit smoking 20 years ago. He has reports previously was a 30 pack smoker. ? ... ? History of prostate cancer: Underwent a prostectomy and has made a full recovery . Has followup with Urology. PSA has been undetectable. ? .. ? ? JV:? Has received his new CPAP machine and has been complying with this use nightly with good effect. .. Obesity: Weight seems to be staying stable. He is not able to be too physically active due to his breathing issue. He does admit to being fairly sedentary over the winter months. ? .. ? DMII:? His type 2 diabetes is been suboptimally controlled. Today's A1c at 7.2 from 8.1, He continues on 30 mg of Actos and glipizide, was unable to tolerate metformin. He is trying to be more compliant with a diabetic diet.. We have considered GLP 1 still has been much too expensive for patient. PLAN: Will increase his Actos to 45 mg for better glycemic control .. Hyperlipidemia: Has started statin therapy and cholesterol panel showing excellent response. He reports most recent lipid panel will not fasting. Continues to have an elevated triglyceride reading .. Hypertension:? Blood pressure today in office acceptable.. He continues on lisinopril 40 mg good effect on his blood pressure We did add on additional hydrochlorothiazide to his blood pressure med regime which has reduce his blood pressure. . He will continue to monitor his blood pressure at home and if continuing to feel dizzy or have lower blood pressures will discontinue hydrochlorothiazide. Vaccine: up-to-date with COVID vaccine, up-to-date with pneumonia and Tdap,. Colorectal Cancer screening:? Colonoscopy done with Dr. asher in March 2024- which 3 polyps were found repeat 5 years colonoscopy Laboratory Tests 07/29/22 05/03/23 11/11/23 09:27 09:08 10:53 RBC Hgb Creatinine Random Glucose 253 H Hgb A1c (Clinic) Triglycerides LDL Cholesterol, C alc PSA Screen Urine Microalbumin 14.0 10.0 02/08/24 05/15/24 07/28/24 09:47 10:56 14:01 RBC 4.19 L Hgb 13.0 L Creatinine 1.68 H 1.27 Random Glucose 216 H Hgb A1c (Clinic) 8.1 H Triglycerides 229 H 321 H LDL Cholesterol, C alc 50 PSA Screen < 0.10 Urine Microalbumin [facility] Medical History (Updated 08/15/24 @ 13:17 by Bobo Cruz PA-C) Annual physical exam Acute bronchitis H/O prostate cancer Colon cancer screening Elevated cholesterol Sleep apnea HTN (hypertension) Diabetes Migraines Surgical History H/O colonoscopy H/O prostate biopsy History of prostatectomy Family History Father Colon cancer Mother Stroke Social History Household Members Other:: lives alone Housing: House Are you a primary children's zoo caretaker to a significant other at home: No Do you presently have visiting nurse or other home services: No Alcohol intake: former Year quit: 2019 Patient Tobacco Use Status: Former Tobacco user e-Cigarette/Vaping Use: Never Used Second Hand Smoke Exposure: No Substance Use Type: Marijuana service: No Current occupational status: retired 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 1. Little interest or pleasure in doing things: not at all 2. Feeling down, depressed, or hopeless: not at all 3. Trouble falling or staying asleep, or sleeping too much: not at all 4. Feeling tired or having little energy: not at all 5. Poor appetite or overeating: not at all 6. Feeling bad about yourself - or that you are a failure or have let yourself or your family down: not at all 7. Trouble concentrating on things, such as reading the newspaper or watching television: not at all 8. Moving or speaking so slowly that other people could have noticed. Or the opposite - being so fidgety or restless that you have been moving around a lot more than usual: not at all 9. Thoughts that you would be better off or of hurting yourself in some way: not at all Total score: 0 Depression Screening Interpretation: Negative Depression Screening Done: Yes 39153 - PHQ-9 Billing: Yes Source: Developed by Drs. Dusty Ansari, Mirella Meier, Vinay Soto and colleagues, with an educational ron from [employer]. Thrive Questionnaire Date Thrive assessed: 08/15/24 I am a: Patient What is your living situation today?: I have a steady place to live Within the past 12 months, did the food you bought not last and you didn't have the money to get more?: Never true Within the past 12 months, did you worry whether your food would run out before you got money to buy more?: Never true Do you have trouble paying for medicines?: No Do you have trouble getting transportation to medical appointments?: No Do you have trouble paying your heating and electricity bill?: No Do you have trouble taking care of your child, family member or friend?: No Do you have trouble with day-to-day activities such as bathing, preparing meals, shopping, managing finances, etc.?: No Are you currently unemployed and looking for a job?: No Are you interested in more education?: No Please select the resources that you would like help with: None Currently or been in a relationship where the following occur: No concerns reported THRIVE Score: 0 AUDIT C Alcohol Use Questionnaire (AUDIT-C) 1. How often do you have a drink containing alcohol?: Never 3. How often do you have six or more drinks on one occasion?: Never Total Score: 0 KRISH-7 AMB Questionnaire KIRSH-7 Date KRISH - 7 assessed: 08/15/24 Feeling nervous, anxious, or on edge: 0 = Not at all Not being able to stop or control worryin = Not at all Worrying too much about different things: 0 = Not at all Trouble relaxin = Not at all Being so restless that it is hard to sit still: 0 = Not at all Becoming easily annoyed or irritable: 0 = Not at all Feeling afraid as if something awful might happen: 0 = Not at all Total KRISH-7 score (0-4 normal; 5-9 mild; 10-14 moderate; 15-21 severe): 0 Source: Developed by Drs. Dusty Ansari, Mirella Meier, Vinay Soot and colleagues, with an educational ron from [employer]. KRISH-7 Assessment Billing KRISH-7 Assessment Tool: KRISH-7 Assessment 97341 Review of Systems Const Denies body aches, Denies chills, Denies excessive sweating, Denies fatigue, Denies fever(s) and Denies headache(s) Eyes Denies blurry vision ENT Denies dysphagia, Denies vertigo, Denies dizziness, Denies headache(s), Denies hearing loss and Denies tinnitus Card Denies chest pain, Denies chest pain with activity, Denies syncope, Denies irregular heart rhythm, Reports dyspnea and Reports dyspnea on exertion Resp Denies chest congestion, Denies cough, Denies hemoptysis, Reports dyspnea, Reports dyspnea on exertion and Denies wheezing GI Denies abdominal pain, Denies melena, Denies hematochezia, Denies coffee ground emesis, Denies dysphagia, Denies diarrhea, Denies nausea and Denies vomiting Denies difficulty urinating, Denies dysuria, Denies urinary frequency, Denies urinary hesitancy and Denies urinary urgency Musc Denies arthralgias, Denies limited range of motion, Denies muscle cramps and Denies muscle weakness Skin/Breast Denies rash and Denies skin ulcer Neuro Denies Abnormal speech present, Denies confusion, Denies vertigo, Denies dizziness, Denies syncope, Denies headache(s), Denies memory loss and Denies seizure-like activity Psych Denies anxiety, Denies confusion, Denies depression, Denies memory loss, Denies panic attacks and Denies paranoia Endo Denies excessive sweating, Denies fatigue, Denies flushing, Denies polydipsia and Denies polyuria Aller/Immun Denies wheezing Physical exam (Primary Care) Vital Signs: Last Vital Signs Temp 96.9 F 08/15/24 11:38 Pulse 78 08/15/24 11:38 BP 144/60 H 08/15/24 11:38 Pulse Ox 98 08/15/24 11:38 Oxygen Delivery Method Room Air 08/15/24 11:38 BMI result Body Mass Index 36.2 Tobacco/Smoking Status: Tobacco use Status Tobacco use date assessed 05/15/24 08/15/24 11:32 Patient Tobacco Use Status Former Tobacco user 08/15/24 11:32 e-Cigarette/Vaping Use Never Used 08/15/24 11:32 PHQ-9: PHQ-9 Score PHQ-9: Total score 0 08/15/24 11:44 Depression Screening Interpretation: Negative Thrive Assessment: Date of Thrive Assessment Date Thrive assessed 08/15/24 08/15/24 11:40 Currently or been in a relationship where the following occur: No concerns reported Const General: cooperative, comfortable, no acute distress, alert and awake; No confusion Orientation/consciousness: oriented to person, oriented to place, patient oriented x3 and No confusion HENMT Head: Yes normocephalic Ears: external ears normal and TM's normal bilaterally Face and sinus: No sinus tenderness Mouth: Normal oral and palatal mucosa present and tongue normal Teeth and gingiva: dentition normal and gingiva normal Throat: Yes posterior oropharynx normal, Yes tonsils normal and Yes uvula midline Eyes Conjunctivae: conjunctivae normal Sclerae: sclerae normal Pupils: Equal, round and reactive pupils present EOM: EOMs intact bilaterally Direct Ophthalmoscopy: No no photophobia Neck Neck: Yes no lymphadenopathy, No tender and Yes no JVD Thyroid: Thyroid normal Carotids: no bruits Chest Chest palpation & inspection: no tenderness Resp Effort & Inspection: normal respiratory effort, no audible wheezes, not labored and no stridor Auscultation: no crackles, no rales, no rhonchi and no wheezes Cardio Jugular venous distension: no JVD Rate: regular rate, not bradycardic and not tachycardic Rhythm: regular rhythm Bruits: no carotid bruits Peripheral pulses: Peripheral pulses 2+ throughout GI Inspection: Yes normal to inspection, No abdominal wall ecchymosis and No visible herniation Palpation (GI): Soft to palpation, nontender, no guarding, not rigid and No hepatosplenomegaly present Auscultation: normoactive bowel sounds General: Yes no CVA tenderness Back/Spine/Pelvis Back: no CVA tenderness and No back tenderness Cervical Spine: cervical ROM normal Thoracic/Lumbar Spine: thoracic and lumbar spine normal to inspection, straight leg raise negative bilaterally, No thoraco-lumbar ROM limited and No lumbar spinal tenderness Skin Lesions: no lesions Rashes: no rashes Wounds: no wounds Neuro General: oriented to person, oriented to place, patient oriented x3, CN's II-XI intact bilaterally and No confusion Cranial nerves: Yes Equal, round and reactive pupils present and Yes Normal accommodation reflex present Cognition (Neuro): normal cognition Speech: No Abnormal speech present Gait exam (Neuro): Normal gait present Motor exam (neuro): 5/5 motor strength present throughout Extrem Right upper extremity: full ROM; no cyanosis Left upper extremity: full ROM; no cyanosis Right lower extremity: no edema Left lower extremity: no edema Psych Appearance: grossly normal Mental Status: mental status grossly normal Affect: normal affect Attitude: cooperative Thought process: Normal thought process present Coding Level of Care Code Est Pt Prev Care >65y(69019) Diagnoses Annual physical exam Z00.00 Type 2 diabetes mellitus without complication, without long-term current use of insulin E11.9 Diabetes mellitus complication status: without complication Diabetes mellitus custodial insulin use: without parts counterman use Essential hypertension I10 Hypertension type: essential hypertension Simple chronic bronchitis J41.0 COPD type: chronic bronchitis Chronic bronchitis type: simple Additional Codes KRISH-7 Assessment Billing - KRISH-7 Assessment Tool: KRISH-7 Assessment 43632 ([id number]) PHQ-9 - 17678 - PHQ-9 Billing: Yes ([id number]) Assessment & Plan Assessment & Plan (1) Annual physical exam: Code(s): Z00.00 - Encounter for general adult medical examination without abnormal findings Category: Medical Plan: As per HPI (2) DMII (diabetes mellitus, type 2): Code(s): E11.9 - Type 2 diabetes mellitus without complications Category: Medical Qualifiers: Diabetes mellitus complication status: without complication Diabetes mellitus parts counterman insulin use: without custodial use Qualified Code(s): E11.9 - Type 2 diabetes mellitus without complications Plan: Current medication regimen includes pioglitazone and glipizide, while considering Mounjaro injections for better control and weight management. Review of insurance needed for medication affordability. Patient's type 2 diabetes suboptimally controlled with A1c is 7.2. He does report reducing sugar in his diet particularly ice cream. For now will increase his pioglitazone 45 mg for better glycemic control. (3) HTN (hypertension): Code(s): I10 - Essential (primary) hypertension Category: Medical Qualifiers: Hypertension type: essential hypertension Qualified Code(s): I10 - Essential (primary) hypertension Plan: Patient's blood pressure acceptable today in office. Continue his current dose of antihypertensive medication with goal blood pressure to remain below 140/90 (4) COPD (chronic obstructive pulmonary disease): Code(s): J44.9 - Chronic obstructive pulmonary disease, unspecified Category: Medical Qualifiers: COPD type: chronic bronchitis Chronic bronchitis type: simple Qualified Code(s): J41.0 - Simple chronic bronchitis Plan: Patient reporting shortness of breath on minimal exertion, has had cardiac stress testing which was essentially normal in the past. He does report being a smoker previously in his life though quit 20 years ago. Patient willing to do PFT testing to evaluate for COPD. Orders: Orders Complete Blood Count no Diff Today I10 - Essential (primary) hypertension Comprehensive [place]. Panel Fast Today I10 - Essential (primary) hypertension Hemoglobin A1c Today E11.9 - Type 2 diabetes mellitus without complications PFT pulmonary function test Today J41.0 - Simple chronic bronchitis AMB Hemoglobin A1c Today E11.9 - Type 2 diabetes mellitus without complications Lipid Panel Today E78.9 - Disorder of lipoprotein metabolism, unspecified Medications: New pioglitazone (Actos) 45 mg PO DAILY 90 days 90 tabs 1RF E11.9 - Type 2 diabetes mellitus without complications Discontinued pioglitazone (Actos) Discontinued Reason: Doctor's Order 30 mg PO DAILY 90 days 90 tabs 3RF E11.9 - Type 2 diabetes mellitus without complications
[2024-08-15 11:38] VITALS: BP 144/60; PULSE 78; TEMP 36.1; O2SAT 98; BMI 36.2
--- OUTSIDE RECORDS SUMMARY | 2024-08-15 13:43 | XMS_ITS | Patient Health Record ---
Author Organization [facility] Address [address] [place] [address] Care Team Providers Care Sizing Machine And Drier Operator Name Role Phone Javier Vann MD Primary Care Provider Unavailabl e Debbie Bridges Unavailable [phone] Reason For Referral No Information Medications Medication [...] Status W/U Status Risk Notes Problem Onychomycosis (557705024) Onychomycosis (110.1) Active confirmed Problem Tinea pedis (5396243) Tinea Pedis (110.4) Active confirmed Problem Tenosynovitis (51900406) Tenosynovitis (727.06) Active confirmed Problem Achilles bursitis (903139231) Achilles Tendonitis Bursitis (726.71) Active confirmed Problem Myositis (69170749) Myositis (729.1) Active confirmed Plan Of Treatment Pending Test Test Name Order Date *Liver Function Test (LFT) 11/27/2013 Insurance Providers Payer Name Payer Address Payer Phone Subscriber Number Group Number Insured Name Patient Relationship to Insured Coverage Start Date Coverage End Date [facility] [address] [place] [phone] [id number] Jayjay Faulkner Self - patient is the insured Medical (General) History Medical History History ICD Code Measles Mumps Chicken pox Surgical History Surgery Date(Month/Year) dental implant 03/2014
== END 2024-08-15 12:22 | disposition home or self-care (01) ==
LOC: HO.HMCH 11:24
PROVIDERS: PCP Physician Assistant; Visit Provider Physician Assistant
DX: E11.9 Type 2 diabetes mellitus without complications (principal)

== ENCOUNTER → 2024-08-15 11:23 | Outpatient (BNVA) | payer MEDICARE, SELFPAY | PROVIDERS: PCP Physician Assistant; Visit Provider Physician Assistant | DX: Z00.00 Encounter for general adult medical examination without abnormal findings (principal); E11.9 Type 2 diabetes mellitus without complications; I10 Essential (primary) hypertension; J41.0 Simple chronic bronchitis; G47.33 Obstructive sleep apnea (adult) (pediatric); Z85.46 Personal history of malignant neoplasm of prostate; Z79.84 Long term (current) use of oral hypoglycemic drugs; Z79.899 Other long term (current) drug therapy; Z13.31 Encounter for screening for depression; Z13.30 Encounter for screening examination for mental health and behavioral disorders, unspecified | CPT/HCPCS: 83036; 96127; 99397 ==

== ENCOUNTER 2024-08-18 11:25 | Outpatient (AMB) | payer MEDICARE, SELFPAY ==
--- NOTE | 2024-08-18 11:53 | A.OFFVIS_ITS ---
Vital Signs 08/18/24 11:54 Height 5 ft 11 in Weight 259 lb BMI 36.1 Handedness Right Intake Visit Reasons: ov-Mallet index finger of Lt hand Intake Note: Jayjay is a 73 year old right hand dominant male who presents today for a follow up visit for his mallet finger of left index finger, DOI:05/14/24. Patient reports he still has a deformity of the left index finger. He uses his splint at night and says throughout the day his finger returns back to normal with redness at the DIP of the left index digit. He says at rest he has sudden pain and then it resolves after. At the end of the day he says he has soreness at the DIP. Allergies metformin Adverse Reaction (Mild, Verified 08/18/24 11:55) Diarrhea HPI HPI ov-Mallet index finger of Lt hand: Details: Jayjay is a 73 year old right hand dominant male who presents today for a follow up visit for his mallet finger of left index finger, DOI:05/14/24. Patient reports he still has a deformity of the left index finger. He uses his splint at night and says throughout the day his finger returns back to normal with redness at the DIP of the left index digit. He says at rest he has sudden pain and then it resolves after. At the end of the day he says he has soreness at the DIP. [facility] Medical History (Updated 08/15/24 @ 13:17 by Bobo Cruz PA-C) Annual physical exam Acute bronchitis H/O prostate cancer Colon cancer screening Elevated cholesterol Sleep apnea HTN (hypertension) Diabetes Migraines Surgical History H/O colonoscopy H/O prostate biopsy History of prostatectomy Family History Father Colon cancer Mother Stroke Social History Household Members Other:: lives alone Housing: House Are you a primary career placement specialist to a significant other at home: No Do you presently have visiting nurse or other home services: No Alcohol intake: former Year quit: 2019 Patient Tobacco Use Status: Former Tobacco user e-Cigarette/Vaping Use: Never Used Second Hand Smoke Exposure: No Substance Use Type: Marijuana service: No Current occupational status: retired 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 Neuro: Normal sensation of the tips of all digits of the left hand at this time Vascular: Cap refill brisk Pain: No tenderness to palpation about the distal phalanx or DIP joint of the left index finger ROM: D IP joint of the left index finger is held in approximately 20 degrees of flexion, unable to actively extend past this in the office today Patient is able to flex and extend all other digits and joints of the left hand fully and without difficulty Skin: No lacerations or abrasions. General: No ecchymosis, erythema, or evidence of infection. Psych: Appears grossly normal Affect normal Attitude cooperative Assessment & Plan Assessment & Plan (1) Mallet finger of left hand: Code(s): M20.012 - Mallet finger of left finger(s) Category: Medical Plan 1. Mallet finger of the left index finger Date of injury 05/14/2024 Patient is educated about this injury Patient is educated about the typical recovery course At this time, patient was informed that he will need to go back to 24 hour a day splinting for a further 5-6 weeks in order to allow further tenderness healing, as he likely was not splinted for 24 hours a day for a long enough period of time Patient was amenable to this plan Patient will follow-up in 6 weeks for reassessment, sooner with any acute concerns Coding Level of Care Code Est Pt Level 3 (94547) Diagnoses Mallet finger of left hand M20.012
[2024-08-18 11:54] VITALS: BMI 36.1
--- OUTSIDE RECORDS SUMMARY | 2024-08-18 12:24 | XMS_ITS | Patient Health Record ---
Author Organization [facility] Address [address] [place] [address] Care Team Providers Care Pest Control Service Representative Name Role Phone Javier Vann MD Primary Care Provider Unavailabl e Debbie Bridges Unavailable [phone] Reason For Referral No Information Medications Medication [...] Status W/U Status Risk Notes Problem Onychomycosis (152454231) Onychomycosis (110.1) Active confirmed Problem Tinea pedis (6797765) Tinea Pedis (110.4) Active confirmed Problem Tenosynovitis (61643001) Tenosynovitis (727.06) Active confirmed Problem Achilles bursitis (254152670) Achilles Tendonitis Bursitis (726.71) Active confirmed Problem Myositis (26282821) Myositis (729.1) Active confirmed Plan Of Treatment Pending Test Test Name Order Date *Liver Function Test (LFT) 11/27/2013 Insurance Providers Payer Name Payer Address Payer Phone Subscriber Number Group Number Insured Name Patient Relationship to Insured Coverage Start Date Coverage End Date [facility] [address] [place] [address] [id number] Jayjay Faulkner Self - patient is the insured Medical (General) History Medical History History ICD Code Measles Mumps Chicken pox Surgical History Surgery Date(Month/Year) dental implant 03/2014
== END 2024-08-18 12:16 | disposition home or self-care (01) ==
LOC: HO.HOS 11:25
PROVIDERS: PCP Physician Assistant
DX: M20.012 Mallet finger of left finger(s) (principal)
CPT/HCPCS: 99213

== ENCOUNTER → 2024-08-18 11:25 | Outpatient (BNVA) | payer MEDICARE, SELFPAY | PROVIDERS: PCP Physician Assistant | DX: M20.012 Mallet finger of left finger(s) (principal); M79.645 Pain in left finger(s) | CPT/HCPCS: 99212 ==

== ENCOUNTER 2024-09-27 11:21 | Outpatient (AMB) | payer MEDICARE, SELFPAY ==
[2024-09-27 11:37] VITALS: BMI 36.1
--- NOTE | 2024-09-27 11:37 | MHC.OFFVIS ---
Vital Signs 09/27/24 11:37 Height 5 ft 11 in Weight 259 lb BMI 36.1 Intake Visit Reasons: OV-Mallet index finger of Lt hand f/u Intake Note: Jayjay is a 73 year old right hand dominant male who presents today for a follow up visit for his mallet finger of left index finger, DOI:05/14/24. At his last visit he was advise to continue to use his mallet finger splint for 24 hours a day. Currently states he has been doing so and feels better. Allergies metformin Adverse Reaction (Mild, Verified 09/27/24 11:52) Diarrhea HPI HPI OV-Mallet index finger of Lt hand f/u: Details: Jayjay is a 73 year old right hand dominant man who returns for a left index mallet finger, S/P injury, DOI: 05/14/24. He has just finished his second course of 24/7 splinting and has been following with [facility]. He thinks the finger looks better.. He has completed his second 6-week course of 24/7 splinting. [facility] Medical History (Updated 09/25/24 @ 07:32 by Bobo Cruz PA-C) Annual physical exam Acute bronchitis H/O prostate cancer Colon cancer screening Elevated cholesterol Sleep apnea HTN (hypertension) Diabetes Migraines Surgical History H/O colonoscopy H/O prostate biopsy History of prostatectomy Family History Father Colon cancer Mother Stroke Social History Household Members Other:: lives alone Housing: House Are you a primary neonatal intensive care nurse to a significant other at home: No Do you presently have visiting nurse or other home services: No Alcohol intake: former Year quit: 2019 Patient Tobacco Use Status: Former Tobacco user e-Cigarette/Vaping Use: Never Used Second Hand Smoke Exposure: No Substance Use Type: Marijuana service: No Current occupational status: retired 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 Cognitive needs: No Hearing needs: No Vision needs: Yes Review of Systems Const All systems reviewed & are unremarkable except as noted in HPI and below Physical Exam Vital Signs: BMI result Body Mass Index 36.1 Const General: cooperative, healthy appearing and no acute distress Orientation/consciousness: patient oriented x3 HEENT Head: Yes normocephalic and Yes atraumatic Eyes EOM: EOMs intact bilaterally Resp Effort & Inspection: normal respiratory effort and able to speak in complete sentences Cardio Jugular venous distension: no JVD Skin General skin exam: turgor normal Rashes: no rashes Neuro General: patient oriented x3 Extrem Other: Evaluation of Left Upper Extremity: The patient is alert, oriented, and in no acute distress Neuro: Median, Ulnar, Radial nerves motor and sensory intact and sensation is normal to the tips of all digits Vascular: Cap refill brisk ROM: He can bring all his fingers closed to a fist and back into extension ~5 degree mallet deformity of the index finger He also has Heberden's nodes consistent with some D IP osteo arthritis Skin: No lacerations or abrasions. General: No Ecchymosis. No Erythema or evidence of infection. Psych Appearance: grossly normal Affect: normal affect Attitude: cooperative Assessment & Plan Assessment & Plan (1) Mallet finger of left hand: Code(s): M20.012 - Mallet finger of left finger(s) Category: Medical (2) DMII (diabetes mellitus, type 2): Code(s): E11.9 - Type 2 diabetes mellitus without complications Category: Medical Qualifiers: Diabetes mellitus complication status: without complication Diabetes mellitus intermediate insulin use: without termite control representative use Qualified Code(s): E11.9 - Type 2 diabetes mellitus without complications Plan Assessment & Plan: 1. Left index finger mallet deformity DOI: 05/14/24 Now ~5 degrees I educated him about this condition I discussed operative and non-operative treatment options, including possible CRPP vs arthrodesis He has just completed his second course of 6-week 24/7 splinting. I recommend he continue to splint his finger for the next 6-8 weeks, and he is in agreement He will transition to wearing his finger splint daily for an 8 hour period, for the next 8 weeks He will follow up in 8 weeks to see how he is doing. He can cancel the appointment if he is doing well. If he has concerns then we will get radiographs with good AP and lateral views of the left index finger as we consider whether to proceed with possible pinning versus possibly an arthrodesis if it is bothering him. Scribed for Ryanne Portillo MD by Cristobal Cardozo, medical education coordinator, on 09/27/24 at 11:50 AM, EST. Coding Level of Care Code Est Pt Level 4 (16066) Diagnoses Mallet finger of left hand M20.012 Type 2 diabetes mellitus without complication, without long-term current use of insulin E11.9 Diabetes mellitus complication status: without complication Diabetes mellitus termite control representative insulin use: without intermediate use
--- OUTSIDE RECORDS SUMMARY | 2024-09-27 12:21 | XMS_ITS | Clinical Summary ---
Author Organization [facility] ity Address [address] [place] [address] Care Team Providers Care Biofuels Product Manager Name Role Phone Unavailable Primary Care [...] Vaccines (1 of 2) 2002 COVID-19 Vaccine (1 - 2023-2 5 season) 2023 Depression Screening 03/08/2024 Influenza Vaccine (#1) 2024 RSV Immunization Adult Patie nts (1 [...]
--- OUTSIDE RECORDS SUMMARY | 2024-09-27 12:21 | XMS_ITS | Patient Health Record ---
Author Organization [facility] Address [address] [place] [address] Care Team Providers Care Correspondence Coordinator Name Role Phone Javier Vann MD Primary Care Provider Unavailabl e Debbie Bridges Unavailable [phone] Reason For Referral No Information Medications Medication SIG (Take, Route, Fr equency, Duration) Notes Start Date End Date Status Naproxen Active CeleBREX 200 MG 1 capsule Orally Onc e a day; Duration: 30 day(s) 11/30/2013 Not-Taking Physical Therapy . . . 2-3x/week; Durat ion: 3-4 weeks 11/27/2013 Active CeleBREX 200 MG 1 capsule Orally Onc e a day; Duration: 30 day(s) 01/03/2014 Not-Taking Lamisil 250 250 MG 1 Tab Oral Daily; Du ration: 90 11/30/2013 Not-Taking Problems Problem Type SNOMED Code ICD Code Onset Dates Problem Status W/U Status Risk Notes Problem Onychomycosis (012245027) Onychomycosis (110.1) Active confirmed Problem Tinea pedis (3894567) Tinea Pedis (110.4) Active confirmed Problem Tenosynovitis (27583619) Tenosynovitis (727.06) Active confirmed Problem Achilles bursitis (201140091) Achilles Tendonitis Bursitis (726.71) Active confirmed Problem Myositis (98289974) Myositis (729.1) Active confirmed Plan Of Treatment Pending Test Test Name Order Date *Liver Function Test (LFT) 11/27/2013 Insurance Providers Payer Name Payer Address Payer Phone Subscriber Number Group Number Insured Name Patient Relationship to Insured Coverage Start Date Coverage End Date [facility] [address] [place] [address] [id number] Jayjay Faulkner Self - patient is the insured Medical (General) History Medical History History ICD Code Measles Mumps Chicken pox Surgical History Surgery Date(Month/Year) dental implant 03/2014
== END 2024-09-27 11:52 | disposition home or self-care (01) ==
LOC: HO.HOS 11:22
PROVIDERS: PCP Physician Assistant; Visit Provider Orthopaedic Surgery
DX: M20.012 Mallet finger of left finger(s) (principal); E11.9 Type 2 diabetes mellitus without complications
CPT/HCPCS: 99214

== ENCOUNTER → 2024-09-27 11:21 | Outpatient (BNVA) | payer MEDICARE, SELFPAY | PROVIDERS: PCP Physician Assistant; Visit Provider Orthopaedic Surgery | DX: M20.012 Mallet finger of left finger(s) (principal); E11.9 Type 2 diabetes mellitus without complications | CPT/HCPCS: 99212 ==

== ENCOUNTER 2024-09-29 09:27 | Outpatient (REF) | payer MEDICARE, SELFPAY ==
--- OUTSIDE RECORDS SUMMARY | 2024-09-29 09:39 | XMS_ITS | Clinical Summary ---
Author Organization [facility] ity Address [address] [place] [address] Care Team Providers Care Cylinder Worker Name Role Phone Unavailable Primary Care [...]
--- OUTSIDE RECORDS SUMMARY | 2024-09-29 09:39 | XMS_ITS | Patient Health Record ---
Author Organization [facility] Address [address] [place] [address] Care Team Providers Care Overweaver Name Role Phone Javier Vann MD Primary Care Provider Unavailabl e Debbie Bridges Unavailable [phone] Reason For Referral No Information Medications Medication [...] Status W/U Status Risk Notes Problem Onychomycosis (231036143) Onychomycosis (110.1) Active confirmed Problem Tinea pedis (5085164) Tinea Pedis (110.4) Active confirmed Problem Tenosynovitis (41790574) Tenosynovitis (727.06) Active confirmed Problem Achilles bursitis (335104790) Achilles Tendonitis Bursitis (726.71) Active confirmed Problem Myositis (98866276) Myositis (729.1) Active confirmed Plan Of Treatment Pending Test Test Name Order Date *Liver Function Test (LFT) 11/27/2013 Insurance Providers Payer Name Payer Address Payer Phone Subscriber Number Group Number Insured Name Patient Relationship to Insured Coverage Start Date Coverage End Date [facility] [address] [place] [address] [phone] [id number] Jayjay Faulkner Self - patient is the insured Medical (General) History Medical History History ICD Code Measles Mumps Chicken pox Surgical History Surgery Date(Month/Year) dental implant 03/2014
[2024-09-29 11:14] LABS: Alanine Aminotransferase 30 U/L (0-40); Aspartate Amino Transferase 24 U/L (5-37)
== END 2024-09-29 09:28 | disposition home or self-care (01) ==
LOC: HO.LAB 09:27
PROVIDERS: PCP Physician Assistant; Visit Provider Physician Assistant Surgical
DX: Z13.89 Encounter for screening for other disorder (principal); Z79.899 Other long term (current) drug therapy
CPT/HCPCS: 36415; 84450; 84460

== ENCOUNTER 2024-10-27 13:38 | Outpatient (REF) | payer MEDICARE, SELFPAY ==
--- OUTSIDE RECORDS SUMMARY | 2024-10-27 13:40 | XMS_ITS | Patient Health Record ---
Author Organization [facility] Address [address] [place] [address] Care Team Providers Care Dry Wall Installer Name Role Phone Javier Vann MD Primary Care Provider Unavailabl e Debbie Bridges Unavailable [phone] Reason For Referral No Information Medications Medication [...] Status W/U Status Risk Notes Problem Onychomycosis (456329819) Onychomycosis (110.1) Active confirmed Problem Tinea pedis (2266373) Tinea Pedis (110.4) Active confirmed Problem Tenosynovitis (77573918) Tenosynovitis (727.06) Active confirmed Problem Achilles bursitis (847036295) Achilles Tendonitis Bursitis (726.71) Active confirmed Problem Myositis (38630923) Myositis (729.1) Active confirmed Plan Of Treatment Pending Test Test Name Order Date *Liver Function Test (LFT) 11/27/2013 Insurance Providers Payer Name Payer Address Payer Phone Subscriber Number Group Number Insured Name Patient Relationship to Insured Coverage Start Date Coverage End Date [facility] [address] [place] [address] [phone] [id number] Jayjay Faulkner Self - patient is the insured Medical (General) History Medical History History ICD Code Measles Mumps Chicken pox Surgical History Surgery Date(Month/Year) dental implant 03/2014
--- OUTSIDE RECORDS SUMMARY | 2024-10-27 13:40 | XMS_ITS | Clinical Summary ---
Author Organization [facility] ity Address [address] [place] [address] Care Team Providers Care Supervisor Intelligence Analyst Name Role Phone Unavailable Primary Care Provider [...]
--- NOTE | 2024-10-27 13:41 | PFT_ITS ---
Indication: Bronchitis Spirometry FEV1 to FVC 59%; FEV1 2.39 L; FVC 4.03 L. There was a significant response to bronchodilators noted. Of note the FEF 07/25/2074 decreased to 45% predicted Lung Volumes Total lung capacity 94% predicted; residual volume 103% predicted Diffusion Capacity DLCO 79% predicted Comparisons None Interpretation There is an obstructive ventilatory defect consistent with moderate COPD. There was a significant response to bronchodilators noted. Also evidence of small airways disease. Lung volumes are within normal limits. The patient does have a very mild diffusion impairment. Clinical correlation warranted. MTDD
[2024-10-27 14:22] VITALS: PULSE 71; O2SAT 97
== END 2024-10-27 13:39 | disposition home or self-care (01) ==
LOC: HO.RESP 13:38
PROVIDERS: PCP Physician Assistant; Visit Provider Physician Assistant
DX: J41.0 Simple chronic bronchitis (principal); Z87.891 Personal history of nicotine dependence
CPT/HCPCS: 94010; 94640; 94727; 94729

== ENCOUNTER → 2024-10-27 13:41 | Outpatient (BNV) | payer MEDICARE, SELFPAY | PROVIDERS: PCP Physician Assistant; Visit Provider Hospitalist | DX: J44.9 Chronic obstructive pulmonary disease, unspecified (principal) | CPT/HCPCS: 94060; 94727; 94729 ==

== ENCOUNTER 2024-11-09 08:35 | Outpatient (REF) | payer MEDICARE, SELFPAY ==
--- OUTSIDE RECORDS SUMMARY | 2024-11-09 09:09 | XMS_ITS | Clinical Summary ---
Author Organization [facility] ity Address [address] [place] [address] Care Team Providers Care Cigarette Tester Name Role Phone Unavailable Primary Care Provider [...]
--- OUTSIDE RECORDS SUMMARY | 2024-11-09 09:09 | XMS_ITS | Patient Health Record ---
Author Organization [facility] Address [address] [place] [address] Care Team Providers Care Er Registrar Name Role Phone Javier Vann MD Primary Care Provider Unavailabl e Debbie Bridges Unavailable [phone] Reason For Referral No Information Medications Medication [...] Status W/U Status Risk Notes Problem Onychomycosis (639516770) Onychomycosis (110.1) Active confirmed Problem Tinea pedis (4967253) Tinea Pedis (110.4) Active confirmed Problem Tenosynovitis (90035838) Tenosynovitis (727.06) Active confirmed Problem Achilles bursitis (117211918) Achilles Tendonitis Bursitis (726.71) Active confirmed Problem Myositis (12752657) Myositis (729.1) Active confirmed Plan Of Treatment Pending Test Test Name Order Date *Liver Function Test (LFT) 11/27/2013 Insurance Providers Payer Name Payer Address Payer Phone Subscriber Number Group Number Insured Name Patient Relationship to Insured Coverage Start Date Coverage End Date [facility] [address] [place] [phone] [id number] Jayjay Faulkner Self - patient is the insured Medical (General) History Medical History History ICD Code Measles Mumps Chicken pox Surgical History Surgery Date(Month/Year) dental implant 03/2014
[2024-11-09 09:21] LABS: Hematocrit 37.3 % (42.0-52.0); Hemoglobin 12.3 g/dl (14.0-18.0); Mean Corpuscular HGB Conc 33.0 g/dl (31.0-36.0); Mean Corpuscular Hemoglobin 30.8 pg (27.0-33.0); Mean Corpuscular Volume 93.5 fL (80.0-98.0); NRBC Abs Auto 0.000 X10*3/uL (0.0-0.012); NRBC Pct Auto 0.0 /100WBC (0.0-0.2); Platelet Count 190 X10*3/uL (160-400); Red Blood Count 3.99 X10*6/uL (4.60-5.80); White Blood Count 7.6 X10*3/uL (4.8-10.8)
[2024-11-09 09:29] LABS: Hemoglobin A1C 229.0975 umol/L; Total Hemoglobin (HGBA1C) 3214.5028 umol/L
[2024-11-09 10:24] LABS: Alanine Aminotransferase 37 U/L (0-40); Albumin Level 4.4 g/dL (3.5-5.0); Alkaline Phosphatase 77 U/L (39-117); Anion Gap 14 (12-20); Aspartate Amino Transferase 30 U/L (5-37); Blood Urea Nitrogen 26 mg/dL (9-16); Calcium 9.4 mg/dL (8.4-10.2); Carbon Dioxide 27 mmol/L (22-29); Chloride 104 mmol/L (96-108); Cholesterol 190 mg/dL (<200); Estimated Glomerular Filt Rate 50; HDL Cholesterol 40 mg/dL (>40); Potassium 4.5 mmol/L (3.3-5.1); Sodium 140 mmol/L (135-145); Total Protein 7.0 g/dL (6.5-8.0); Triglycerides 331 mg/dL (<150)
== END 2024-11-09 08:36 | disposition home or self-care (01) ==
LOC: HO.LAB 08:35
PROVIDERS: Absent Provider Physician Assistant Surgical; PCP Physician Assistant; Visit Provider Physician Assistant
DX: I10 Essential (primary) hypertension (principal); E11.9 Type 2 diabetes mellitus without complications; E78.9 Disorder of lipoprotein metabolism, unspecified
CPT/HCPCS: 36415; 80053; 80061; 80076; 83036; 85027

== ENCOUNTER 2024-11-15 10:45 | Outpatient (AMB) | payer MEDICARE, SELFPAY ==
[2024-11-15 10:58] VITALS: BP 148/60; PULSE 59; RESP 18; TEMP 36.3; O2SAT 97; BMI 36.6
--- NOTE | 2024-11-15 10:58 | A.OFFPC_ITS ---
Vital Signs 11/15/24 10:58 11/15/24 11:32 Height 5 ft 11 in Weight 262 lb 8 oz BMI 36.6 BP 148/60 H 142/68 H Blood Pressure Location Lt brachial Position Sitting Respiration 18 Pulse 59 Pulse Source Pulse Oximeter Temp 97.3 F Temp Source Temporal Artery Scan Pulse Oximetry (%) 97 Oxygen Delivery Method Room Air Intake Visit Reasons: 3 MNTH F/U - see comments Test Hole Driller Required: No Accompanied by: Self / Same As Patient Allergies metformin Adverse Reaction (Mild, Verified 11/15/24 11:07) Diarrhea Medication List - Last Reconciled 11/15/24 by Bobo Cruz PA-C atorvastatin 10 mg PO DAILY betamethasone dipropionate 0.05% appl topical budesonide-formoterol 160-4.5 mcg/actuation 1 inh inhalation BID 30 days qstoyivdlh-hrjokquazjlos-tdvj 50-325-40 mg 1 cap PO Q8H PRN hydrochlorothiazide 12.5 mg PO DAILY 90 days hydrocortisone 2.5% 1 appl topical BID PRN ketoconazole 2% 1 appl topical BID 30 days lisinopril 40 mg PO DAILY miscellaneous medical supply 1 ea miscellaneous .nightly multivitamin (One Daily Multivitamin tablet) 1 tab PO DAILY pioglitazone (Actos) 45 mg PO DAILY 90 days Tobacco use date assessed: 11/15/24 Fall risk assessment: No Falls in past year Last assessed Fall Risk: 11/15/24 Dental Screening Dental Screen Date: 11/15/24 Did you have a dental visit in the last 12 months?: Yes Did you have a dental problem in the last 6 months where you did not have access to dental care?: No Was dental information given to patient?: Patient has dentist HPI 3 MNTH F/U - see comments HPI Details Eda is a 74-year-old male here today for a follow-up visit ? Pmhx significant for Prostate cancer, DMII, HTN. COPD: Recent pulmonary function tests showing-- > There is an obstructive ventilatory defect consistent with moderate COPD. There was a significant response to bronchodilators noted. Also evidence of small airways disease. continues to have shortness of breath on minimal exertion. He is a former smoker though quit smoking 20 years ago. He has reports previously was a 30 pack smoker. Has been started on Symbicort and has been using an over the last week without any significant change. He believes the steroid in the maintenance inhaler may be increasing his sugars. ? ... ? History of prostate cancer: Underwent a prostectomy and has made a full recovery . Has followup with Urology. PSA has been undetectable. ? .. ? ? JV:? Has received his new CPAP machine and has been complying with this use nightly with good effect. .. Class 2 Obesity: Has gained some weight since last office visit Weight seems to be staying stable. He is not able to be too physically active due to his breathing issue. He does admit to being fairly sedentary over the winter months. ? .. ? DMII:? His type 2 diabetes is been suboptimally controlled. Most recent A1c elevated at 8.7 He continues on Actos 45 mg, has not been able to tolerate metformin. He is trying to be more compliant with a diabetic diet.. We have considered GLP 1 still has been much too expensive for patient. PLAN: Will work extensively on dietary changes, will continue highest dose of Actos for now, glipizide has been discontinued. Patient really would likely benefit from a GLP 1 such as Mounjaro or Ozempic to help reduce his weight and gained glycemic control We did discuss perhaps transitioning his maintenance inhaler off of a inhaled corticosteroid to ipratropium based inhaler .. Hyperlipidemia: Has started statin therapy and cholesterol panel showing excellent response. He reports most recent lipid panel will not fasting. Continues to have an elevated triglyceride reading .. Hypertension:? Blood pressure today in office elevated... He continues on lisinopril 40 mg good effect on his blood pressure We did add on additional hydrochlorothiazide to his blood pressure med regime which has reduce his blood pressure. PLAN: Will increase his hydrochlorothiazide to 25 mg for better blood pressure control Laboratory Tests 07/28/24 08/15/24 11/09/24 14:01 11:29 08:48 Hgb 13.0 L 12.3 L Creatinine 1.39 Fasting Glucose 172 H Hgb A1c (Clinic) 7.2 H Hemoglobin A1c % 8.7 H Triglycerides 331 H LDL Cholesterol, C alc 84 [facility] Medical History Annual physical exam Acute bronchitis H/O prostate cancer Colon cancer screening Elevated cholesterol Sleep apnea HTN (hypertension) Diabetes Migraines Surgical History H/O colonoscopy H/O prostate biopsy History of prostatectomy Family History Father Colon cancer Mother Stroke Social History Household Members Other:: lives alone Housing: House Are you a primary summer child caregiver to a significant other at home: No Do you presently have visiting nurse or other home services: No Alcohol intake: former Year quit: 2019 Patient Tobacco Use Status: Former Tobacco user e-Cigarette/Vaping Use: Never Used Second Hand Smoke Exposure: No Substance Use Type: Marijuana service: No Current occupational status: retired 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 1. Little interest or pleasure in doing things: not at all 2. Feeling down, depressed, or hopeless: not at all 3. Trouble falling or staying asleep, or sleeping too much: not at all 4. Feeling tired or having little energy: not at all 5. Poor appetite or overeating: not at all 6. Feeling bad about yourself - or that you are a failure or have let yourself or your family down: not at all 7. Trouble concentrating on things, such as reading the newspaper or watching television: not at all 8. Moving or speaking so slowly that other people could have noticed. Or the opposite - being so fidgety or restless that you have been moving around a lot more than usual: not at all 9. Thoughts that you would be better off or of hurting yourself in some way: not at all Total score: 0 Depression Screening Interpretation: Negative Depression Screening Done: Yes 32843 - PHQ-9 Billing: Yes Source: Developed by Drs. Dusty Ansari, Mirella Meier, Vinay Soto and colleagues, with an educational ron from [employer]. Thrive Questionnaire Date Thrive assessed: 11/15/24 I am a: Patient What is your living situation today?: I have a steady place to live Within the past 12 months, did the food you bought not last and you didn't have the money to get more?: Never true Within the past 12 months, did you worry whether your food would run out before you got money to buy more?: Never true Do you have trouble paying for medicines?: No Do you have trouble getting transportation to medical appointments?: No Do you have trouble paying your heating and electricity bill?: No Do you have trouble taking care of your child, family member or friend?: No Do you have trouble with day-to-day activities such as bathing, preparing meals, shopping, managing finances, etc.?: No Are you currently unemployed and looking for a job?: No Are you interested in more education?: No Please select the resources that you would like help with: None Currently or been in a relationship where the following occur: No concerns reported THRIVE Score: 0 AUDIT C Alcohol Use Questionnaire (AUDIT-C) 1. How often do you have a drink containing alcohol?: Never 3. How often do you have six or more drinks on one occasion?: Never Total Score: 0 KRISH-7 AMB Questionnaire KRISH-7 Date KRISH - 7 assessed: 11/15/24 Feeling nervous, anxious, or on edge: 0 = Not at all Not being able to stop or control worryin = Not at all Worrying too much about different things: 0 = Not at all Trouble relaxin = Not at all Being so restless that it is hard to sit still: 0 = Not at all Becoming easily annoyed or irritable: 0 = Not at all Feeling afraid as if something awful might happen: 0 = Not at all Total KRISH-7 score (0-4 normal; 5-9 mild; 10-14 moderate; 15-21 severe): 0 Source: Developed by Drs. Dusty Ansari, Mirella Meier, Vinay Soto and colleagues, with an educational ron from [employer]. KRISH-7 Assessment Billing KRISH-7 Assessment Tool: KRISH-7 Assessment 45192 Review of Systems Const Denies headache(s) Eyes Denies loss of vision ENT Denies vertigo, Denies dizziness, Denies headache(s) and Denies sore throat Card Denies chest pain, Denies leg edema and Denies lightheadedness Resp Denies cough, Denies hemoptysis and Denies wheezing GI Denies abdominal pain, Denies melena, Denies constipation, Denies diarrhea and Denies vomiting Denies dysuria, Denies urinary frequency and Denies urinary urgency Musc Denies arthralgias, Denies joint swelling, Denies numbness and Denies tingling Neuro Denies Abnormal speech present, Denies behavioral changes, Denies vertigo, Denies dizziness, Denies headache(s), Denies loss of vision, Denies memory loss, Denies numbness and Denies tingling Psych Denies anxiety, Denies behavioral changes, Denies depression, Denies memory loss and Denies panic attacks Surinder/Lymph Denies easy bleeding and Denies easy bruising Aller/Immun Denies wheezing Physical exam (Primary Care) Vital Signs: Last Vital Signs Temp 97.3 F 11/15/24 10:58 Pulse 59 11/15/24 10:58 Resp 18 11/15/24 10:58 BP 142/68 H 11/15/24 11:32 Pulse Ox 97 11/15/24 10:58 Oxygen Delivery Method Room Air 11/15/24 10:58 BMI result Body Mass Index 36.6 BMI Assessment/Plan discussion: High BMI High, discussed plan: lifestyle, weight reduction, dietary and physical activity Tobacco/Smoking Status: Tobacco use Status Tobacco use date assessed 11/15/24 11/15/24 11:05 Patient Tobacco Use Status Former Tobacco user 11/15/24 11:05 e-Cigarette/Vaping Use Never Used 11/15/24 11:05 PHQ-9: PHQ-9 Score PHQ-9: Total score 0 11/15/24 11:08 Depression Screening Interpretation: Negative Thrive Assessment: Date of Thrive Assessment Date Thrive assessed 11/15/24 11/15/24 11:05 Currently or been in a relationship where the following occur: No concerns reported Const General: healthy appearing, no acute distress, alert and awake Nutritional Appearance: well nourished Orientation/consciousness: oriented to person, oriented to place and oriented to time HENMT Ears: TM's normal bilaterally General nose exam: Normal nasal mucous membranes and turbinates present Eyes Conjunctivae: conjunctivae normal Sclerae: sclerae normal Pupils: Equal, round and reactive pupils present Neck Neck: Yes no lymphadenopathy and Yes no JVD Thyroid: Thyroid normal Carotids: no bruits Resp Effort & Inspection: normal respiratory effort and not tachypneic Auscultation: no crackles, no rales, no rhonchi and no wheezes Cardio Rate: regular rate Rhythm: regular rhythm Heart sounds: no murmurs and normal S1 and S2 GI Palpation (GI): Soft to palpation, nontender, no hepatomegaly and no splenomegaly Auscultation: normal bowel sounds Skin General skin exam: no rashes or lesions noted and dry skin Neuro General: oriented to person, oriented to place and oriented to time Cranial nerves: Yes Equal, round and reactive pupils present Speech: No Abnormal speech present Gait exam (Neuro): Normal gait present Motor exam (neuro): no tremor noted Extrem Right upper extremity: full ROM Left upper extremity: full ROM Right lower extremity: full ROM; no edema Left lower extremity: full ROM; no edema Psych Mental Status: mental status grossly normal Speech and movement: Normal speech and movement present Affect: normal affect Attitude: cooperative Thought process: Normal thought process present Coding Level of Care Code Est Pt Level 4 (47214) Diagnoses Type 2 diabetes mellitus without complication, without long-term current use of insulin E11.9 Diabetes mellitus complication status: without complication Diabetes mellitus maintenance dispatcher insulin use: without maintenance dispatcher use Essential hypertension I10 Hypertension type: essential hypertension Simple chronic bronchitis J41.0 COPD type: chronic bronchitis Chronic bronchitis type: simple Class 2 obesity E66.812 Additional Codes KRISH-7 Assessment Billing - KRISH-7 Assessment Tool: KRISH-7 Assessment 15672 ([id number]) PHQ-9 - 29861 - PHQ-9 Billing: Yes ([id number]) Assessment & Plan Assessment & Plan (1) DMII (diabetes mellitus, type 2): Code(s): E11.9 - Type 2 diabetes mellitus without complications Category: Medical Qualifiers: Diabetes mellitus complication status: without complication Diabetes me llitus maintenance dispatcher insulin use: without longterm use Qualified Code(s): E11.9 - Type 2 diabetes mellitus without complications Plan: Patient's type 2 diabetes suboptimally controlled with A1c now at 8.7. He attributes this increase in A1c to steroid that is in his maintenance inhaler though this is unclear. Current medication regimen includes pioglitazone 45 mg. while considering Mounjaro injections for better control and weight management. Review of insurance needed for medication affordability. (2) HTN (hypertension): Code(s): I10 - Essential (primary) hypertension Category: Medical Qualifiers: Hypertension type: essential hypertension Qualified Code(s): I10 - Essential (primary) hypertension Plan: Patient's blood pressure elevated today in office. Already on highest dose of lisinopril. Will increase his hydrochlorothiazide to 25 mg. Continue his current dose of antihypertensive medication with goal blood pressure to remain below 140/90 (3) COPD (chronic obstructive pulmonary disease): Code(s): J44.9 - Chronic obstructive pulmonary disease, unspecified Category: Medical Qualifiers: COPD type: chronic bronchitis Chronic bronchitis type: simple Qualified Code(s): J41.0 - Simple chronic bronchitis Plan: PFT showing evidence of COPD. He was a smoker for 30 years. He was started on Symbicort over the last week. We did discuss perhaps changing to a Combivent ipratropium based maintenance inhaler (4) Class 2 obesity: Code(s): E66.812 - Obesity, class 2 Category: Medical Plan: Patient does understand his BMI is over 35 and will work on being more physically active and adapting to better eating habits to reduce his weight Again we discuss the possible benefit from a GLP 1 as he has diabetes and elevated BMI. He will wait to March which he may be able to get insurance coverage for GLP1 therapy Orders: Orders Complete Blood Count no Diff Today I10 - Essential (primary) hypertension Microalbumin, Random (w Creat) Today I10 - Essential (primary) hypertension Comprehensive [place]. Panel Fast Today I10 - Essential (primary) hypertension Medications: New hydrochlorothiazide 25 mg PO DAILY 90 tabs 1RF 90 days I10 - Essential (primary) hypertension On Hold hydrochlorothiazide Hold Comment: Doctor's Order 12.5 mg PO DAILY 90 days 90 tabs 1RF I10 - Essential (primary) hypertension
[2024-11-15 11:32] VITALS: BP 142/68
--- OUTSIDE RECORDS SUMMARY | 2024-11-15 13:24 | XMS_ITS | Patient Health Record ---
Author Organization [facility] Address [address] [place] [address] Care Team Providers Care Health Information Administrator Name Role Phone Javier Vann MD Primary Care Provider Unavailabl e Debbie Bridges Unavailable [phone] Reason For Referral No Information Medications Medication [...] Status W/U Status Risk Notes Problem Onychomycosis (543221810) Onychomycosis (110.1) Active confirmed Problem Tinea pedis (5651511) Tinea Pedis (110.4) Active confirmed Problem Tenosynovitis (50741312) Tenosynovitis (727.06) Active confirmed Problem Achilles bursitis (652120032) Achilles Tendonitis Bursitis (726.71) Active confirmed Problem Myositis (10319206) Myositis (729.1) Active confirmed Plan Of Treatment Pending Test Test Name Order Date *Liver Function Test (LFT) 11/27/2013 Insurance Providers Payer Name Payer Address Payer Phone Subscriber Number Group Number Insured Name Patient Relationship to Insured Coverage Start Date Coverage End Date [facility] [address] [place] [phone] [id number] Jayjay Faulkner Self - patient is the insured Medical (General) History Medical History History ICD Code Measles Mumps Chicken pox Surgical History Surgery Date(Month/Year) dental implant 03/2014
== END 2024-11-15 11:45 | disposition home or self-care (01) ==
LOC: HO.HMCH 10:46
PROVIDERS: PCP Physician Assistant; Visit Provider Physician Assistant
DX: E11.9 Type 2 diabetes mellitus without complications (principal); J41.0 Simple chronic bronchitis; E66.812 Obesity, class 2; Z68.36 Body mass index [BMI] 36.0-36.9, adult; I10 Essential (primary) hypertension

== ENCOUNTER → 2024-11-15 10:45 | Outpatient (BNVA) | payer MEDICARE, SELFPAY | PROVIDERS: PCP Physician Assistant; Visit Provider Physician Assistant | DX: E11.9 Type 2 diabetes mellitus without complications (principal); J41.0 Simple chronic bronchitis; G47.33 Obstructive sleep apnea (adult) (pediatric); E66.812 Obesity, class 2; E78.5 Hyperlipidemia, unspecified; I10 Essential (primary) hypertension; Z87.891 Personal history of nicotine dependence; Z85.46 Personal history of malignant neoplasm of prostate; Z90.79 Acquired absence of other genital organ(s); Z99.89 Dependence on other enabling machines and devices; Z68.36 Body mass index [BMI] 36.0-36.9, adult | CPT/HCPCS: 96127; 99212 ==

== ENCOUNTER 2024-11-22 11:17 | Outpatient (AMB) | payer MEDICARE, SELFPAY ==
[2024-11-22 11:25] VITALS: BMI 36.5
--- NOTE | 2024-11-22 11:25 | A.OFFVIS_ITS ---
Vital Signs 11/22/24 11:25 Height 5 ft 11 in Weight 262 lb BMI 36.5 Intake Visit Reasons: OV-Mallet index finger of Lt hand f/u Intake Note: Jayjay is a 73 year old right hand dominant male who presents today for a follow up visit for his mallet finger of left index finger, DOI:05/14/24. At his last visit he was advise to continue to splint his finger for the next 6-8 weeks, and the he will transition to wearing his finger splint daily for an 8 hour period, for the next 8 weeks. Patient was in agreement. Today patient states he has D/C splinting. States his finger looks and feels better however he still has tnederness and swelling on his PIP. Allergies metformin Adverse Reaction (Mild, Verified 11/22/24 11:41) Diarrhea HPI HPI OV-Mallet index finger of Lt hand f/u: Details: Jayjay is a 74 year old right hand dominant man who returns for a left index mallet finger, S/P injury, DOI: 05/14/24. He thinks the finger looks better but he still complains of stiffness & swelling in his finger. He is able to somewhat make a fist. He says he now has normal sensation to the tip of his index finger. Overall he is happy with his recovery. [facility] Medical History Annual physical exam Acute bronchitis H/O prostate cancer Colon cancer screening Elevated cholesterol Sleep apnea HTN (hypertension) Diabetes Migraines Surgical History H/O colonoscopy H/O prostate biopsy History of prostatectomy Family History Father Colon cancer Mother Stroke Social History Household Members Other:: lives alone Housing: House Are you a primary chiropractic care to a significant other at home: No Do you presently have visiting nurse or other home services: No Alcohol intake: former Year quit: 2019 Patient Tobacco Use Status: Former Tobacco user e-Cigarette/Vaping Use: Never Used Second Hand Smoke Exposure: No Substance Use Type: Marijuana service: No Current occupational status: retired 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 Cognitive needs: No Hearing needs: No Vision needs: Yes Review of Systems Const All systems reviewed & are unremarkable except as noted in HPI and below Physical Exam Vital Signs: BMI result Body Mass Index 36.5 Const General: no acute distress and alert Orientation/consciousness: patient oriented x3 Neuro General: patient oriented x3 Extrem Other: Evaluation of Left Upper Extremity: The patient is alert, oriented, and in no acute distress Neuro: Median, Ulnar, Radial nerves motor and sensory intact and sensation is normal to the tips of all digits Vascular: Cap refill brisk ROM: He can bring all his fingers closed to a fist and back into extension, with some mild tightness in the index finger PIP joint ~5 degree mallet deformity of the index finger PIP joint He also has 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 Psych Appearance: grossly normal Affect: normal affect Attitude: cooperative Assessment & Plan Assessment & Plan (1) Mallet finger of left hand: Comment: IF Code(s): M20.012 - Mallet finger of left finger(s) Category: Medical (2) Stiffness of finger joint of left hand: Comment: IF Code(s): M25.642 - Stiffness of left hand, not elsewhere classified Category: Medical (3) DMII (diabetes mellitus, type 2): Code(s): E11.9 - Type 2 diabetes mellitus without complications Category: Medical Qualifiers: Diabetes mellitus complication status: without complication Diabetes mellitus nursing home insulin use: without nursing home use Qualified Code(s): E11.9 - Type 2 diabetes mellitus without complications Plan Assessment & Plan: 1. Left index finger mallet deformity DOI: 05/14/24 Now ~5 degrees 2. Left index finger stiffness Secondary to splinting & disuse I educated him about these conditions He appears to be doing very well. He has discontinued his splint He can follow up prn Scribed for Ryanne Portillo MD by Cristobal Cardozo, medical radiation therapist, on 11/22/24 at 11:40 AM, EST. 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
--- OUTSIDE RECORDS SUMMARY | 2024-11-22 14:30 | XMS_ITS | Patient Health Record ---
Author Organization [facility] Address [address] [place] [address] Care Team Providers Care Fire Protection Equipment Technician Name Role Phone Javier Vann MD Primary Care Provider Unavailabl e Debbie Bridges Unavailable [phone] Reason For Referral No Information Medications Medication [...] Status W/U Status Risk Notes Problem Onychomycosis (947423176) Onychomycosis (110.1) Active confirmed Problem Tinea pedis (2351439) Tinea Pedis (110.4) Active confirmed Problem Tenosynovitis (22232817) Tenosynovitis (727.06) Active confirmed Problem Achilles bursitis (303402447) Achilles Tendonitis Bursitis (726.71) Active confirmed Problem Myositis (37309372) Myositis (729.1) Active confirmed Plan Of Treatment Pending Test Test Name Order Date *Liver Function Test (LFT) 11/27/2013 Insurance Providers Payer Name Payer Address Payer Phone Subscriber Number Group Number Insured Name Patient Relationship to Insured Coverage Start Date Coverage End Date [facility] [address] [place] [phone] [id number] Jayjay Faulkner Self - patient is the insured Medical (General) History Medical History History ICD Code Measles Mumps Chicken pox Surgical History Surgery Date(Month/Year) dental implant 03/2014
--- OUTSIDE RECORDS SUMMARY | 2024-11-22 14:30 | XMS_ITS | Clinical Summary ---
Author Organization [facility] Address [address] [place] [address] Care Team Providers Care Terrazzo Supervisor Name Role Phone Unavailable Primary Care Provider [...] 2002 Zoster Vaccines (1 of 2) 2002 Depression Screening 03/08/2024 COVID-19 Vaccine (1 - 2023-2 5 season) 2024 Influenza Vaccine (#1) 2024 RSV Immunization Adult [...]
== END 2024-11-22 11:52 | disposition home or self-care (01) ==
LOC: HO.HOS 11:17
PROVIDERS: PCP Physician Assistant; Visit Provider Orthopaedic Surgery
DX: M20.012 Mallet finger of left finger(s) (principal); M25.642 Stiffness of left hand, not elsewhere classified; E11.9 Type 2 diabetes mellitus without complications
CPT/HCPCS: 99213

== ENCOUNTER → 2024-11-22 11:17 | Outpatient (BNVA) | payer MEDICARE, SELFPAY | PROVIDERS: PCP Physician Assistant; Visit Provider Orthopaedic Surgery | DX: M20.012 Mallet finger of left finger(s) (principal); M25.642 Stiffness of left hand, not elsewhere classified; E11.9 Type 2 diabetes mellitus without complications | CPT/HCPCS: 99212 ==